=== PATIENT | male | born 1935 | race Caucasian/White ===

== ENCOUNTER → 2017-11-08 10:17 | Outpatient (CLI) | payer MEDICARE, SELFPAY ==
[2017-11-08 11:32] LABS: Absolute Lymphocyte Count 2.08 X10^3/ul (0.83-4.51); Absolute Neutrophil Count 3.3 X10^3/uL (2.0-7.7); Basophil# 0.04 X10^3/uL; Basophil% 0.6 % (0-1); Eosinophil# 0.26 X10^3/uL; Eosinophils% 4.1 % (0-5); Hematocrit 39.4 % (40-54); Hemoglobin 12.3 g/dl (13.0-16.5); Lymphocyte # 2.08 X10^3/ul (4.0); Lymphocyte % 32.6 % (19-41); Mean Corp Hgb Conc 31.2 g/gl (32-36); Mean Corpuscular Hgb 27.6 pg (27.0-32.0); Mean Corpuscular Volume 88.3 fL (80-94); Mean Platelet Vol. 9.3 fl (6.2-12.0); Monocyte# 0.72 X10^3/uL; Monocyte% 11.3 % (0-10); Neutrophil # 3.26 X10^3/uL (2.7-7.7); Neutrophil % 51.1 % (47-70); Platelet Count 199 K/mm3 (150-450); RBC Distribution Width CV 15.2 % (11.6-14.6); RBC Distribution Width SD 49.1 fl (35.1-43.9); Red Blood Count 4.46 M/mm3 (4.6-6.2); White Blood Count 6.4 K/mm3 (4.4-11.0)
[2017-11-08 11:33] LABS: POSITIVE COUNT NO; POSITIVE DIFFERENTIAL NO; POSITIVE MORPHOLOGY NO
[2017-11-08 12:07] LABS: AST(SGOT) 11 U/L (15-37); Alanine Aminotransfer ALT/SGPT 11 U/L (16-61); Albumin, Serum 3.5 g/dL (3.2-5.0); Alkaline Phosphatase 30 U/L (45-117); Anion Gap 6 (5-15); BUN 26 mg/dL (7-18); BUN/Creat Ratio 29.1 RATIO (10-20); Calcium,Total 8.7 mg/dL (8.5-10.1); Chloride 104 mmol/L (98-107); Cholesterol 139 mg/dL (200); Creatinine, Serum 0.89 mg/dL (0.70-1.30); EST Glomerular Filtration Rate 87 mL/min (>60); Est Glom Filt Rate - Afr Amer 105 mL/min (>60); Globulin 3.5 g/dL (2.2-4.2); Glucose 97 mg/dL (74-106); High Density Lipoprotein 60 mg/dL; Sodium Level 140 mmol/L (136-145); Thyroid Stim Hormone (TSH) 1.49 uIU/mL (0.358-3.74); Triglycerides 62 mg/dL; Very Low Density Lipoprotein 12 mg/dL (5-40); Vitamin D,25 Hydroxy 30.4 ng/mL (19.95-100.01)
== END | disposition home or self-care (01) ==
PROVIDERS: Family Provider Family Medicine Geriatric Medicine; PCP Family Medicine Geriatric Medicine; Visit Provider Family Medicine Geriatric Medicine
DX: E55.9 Vitamin D deficiency, unspecified (principal); E78.4 Other hyperlipidemia; R53.83 Other fatigue
CPT/HCPCS: 36415; 80053; 80061; 82306; 84443; 85025

== ENCOUNTER → 2018-06-13 11:20 | Outpatient (CLI) | payer MEDICARE, SELFPAY ==
[2018-06-13 11:57] LABS: Absolute Lymphocyte Count 2.16 X10^3/ul (0.83-4.51); Absolute Neutrophil Count 3.6 X10^3/uL (2.0-7.7); Basophil# 0.04 X10^3/uL; Basophil% 0.6 % (0-1); Eosinophil# 0.29 X10^3/uL; Eosinophils% 4.3 % (0-5); Hematocrit 39.7 % (40-54); Hemoglobin 12.2 g/dl (13.0-16.5); Lymphocyte # 2.16 X10^3/ul (4.0); Lymphocyte % 31.8 % (19-41); Mean Corp Hgb Conc 30.7 g/gl (32-36); Mean Corpuscular Hgb 26.3 pg (27.0-32.0); Mean Corpuscular Volume 85.7 fL (80-94); Mean Platelet Vol. 8.9 fl (6.2-12.0); Monocyte# 0.67 X10^3/uL; Monocyte% 9.9 % (0-10); Neutrophil # 3.63 X10^3/uL (2.7-7.7); Neutrophil % 53.3 % (47-70); Platelet Count 202 K/mm3 (150-450); RBC Distribution Width CV 15.8 % (11.6-14.6); RBC Distribution Width SD 49.9 fl (35.1-43.9); Red Blood Count 4.63 M/mm3 (4.6-6.2); White Blood Count 6.8 K/mm3 (4.4-11.0)
[2018-06-13 11:59] LABS: POSITIVE COUNT NO; POSITIVE DIFFERENTIAL NO; POSITIVE MORPHOLOGY NO
[2018-06-13 12:20] LABS: Vitamin D,25 Hydroxy 21.5 ng/mL (29.95-100.01)
[2018-06-13 12:28] LABS: ALB/GLOB Ratio 0.9 RATIO (0.9-2.4); AST(SGOT) 15 U/L (15-37); Alanine Aminotransfer ALT/SGPT 23 U/L (16-61); Albumin, Serum 3.5 g/dL (3.2-5.0); Alkaline Phosphatase 36 U/L (45-117); Anion Gap 9 (5-15); BUN 25 mg/dL (7-18); BUN/Creat Ratio 26.3 RATIO (10-20); Calcium,Total 9.2 mg/dL (8.5-10.1); Chloride 106 mmol/L (98-107); Cholesterol 156 mg/dL (200); Creatinine, Serum 0.95 mg/dL (0.70-1.30); EST Glomerular Filtration Rate 81 mL/min (>60); Est Glom Filt Rate - Afr Amer 98 mL/min (>60); Globulin 3.8 g/dL (2.2-4.2); Glucose 95 mg/dL (74-106); High Density Lipoprotein 57 mg/dL; Potassium 4.3 mmol/L (3.5-5.1); Protein, Total 7.3 g/dL (6.4-8.2); Sodium Level 142 mmol/L (136-145); Thyroid Stim Hormone (TSH) 2.53 uIU/mL (0.358-3.74); Triglycerides 85 mg/dL; Very Low Density Lipoprotein 17 mg/dL (5-40)
== END ==
PROVIDERS: Family Provider Family Medicine Geriatric Medicine; PCP Family Medicine Geriatric Medicine; Visit Provider Family Medicine Geriatric Medicine
DX: E55.9 Vitamin D deficiency, unspecified (principal); E78.4 Other hyperlipidemia; R53.83 Other fatigue
CPT/HCPCS: 36415; 80053; 80061; 82306; 84443; 85025

== ENCOUNTER → 2018-12-12 10:01 | Outpatient (CLI) | payer MEDICARE, SELFPAY ==
[2018-12-12 13:38] LABS: Absolute Lymphocyte Count 1.76 X10^3/ul (0.83-4.51); Absolute Neutrophil Count 3.3 X10^3/uL (2.0-7.7); Basophil# 0.02 X10^3/uL; Basophil% 0.3 % (0-1); Eosinophil# 0.23 X10^3/uL; Eosinophils% 3.8 % (0-5); Hematocrit 39.5 % (40-54); Hemoglobin 11.8 g/dl (13.0-16.5); Lymphocyte # 1.76 X10^3/ul (4.0); Lymphocyte % 29.2 % (19-41); Mean Corp Hgb Conc 29.9 g/gl (32-36); Mean Corpuscular Hgb 25.7 pg (27.0-32.0); Mean Corpuscular Volume 86.1 fL (80-94); Monocyte# 0.76 X10^3/uL; Monocyte% 12.6 % (0-10); Neutrophil # 3.25 X10^3/uL (2.7-7.7); Neutrophil % 54.1 % (47-70); Platelet Count 217 K/mm3 (150-450); RBC Distribution Width CV 16.2 % (11.6-14.6); RBC Distribution Width SD 51.3 fl (35.1-43.9); Red Blood Count 4.59 M/mm3 (4.6-6.2)
[2018-12-12 13:39] LABS: POSITIVE COUNT NO; POSITIVE DIFFERENTIAL NO; POSITIVE MORPHOLOGY NO
[2018-12-12 13:54] LABS: ALB/GLOB Ratio 0.9 RATIO (0.9-2.4); AST(SGOT) 16 U/L (15-37); Alanine Aminotransfer ALT/SGPT 17 U/L (16-61); Albumin, Serum 3.5 g/dL (3.2-5.0); Alkaline Phosphatase 35 U/L (45-117); Anion Gap 4 (5-15); BUN 21 mg/dL (7-18); BUN/Creat Ratio 24.1 RATIO (10-20); Calcium,Total 8.7 mg/dL (8.5-10.1); Chloride 108 mmol/L (98-107); Cholesterol 133 mg/dL (200); Creatinine, Serum 0.87 mg/dL (0.70-1.30); EST Glomerular Filtration Rate 89 mL/min (>60); Est Glom Filt Rate - Afr Amer 108 mL/min (>60); Globulin 3.7 g/dL (2.2-4.2); Glucose 64 mg/dL (74-106); High Density Lipoprotein 51 mg/dL; Protein, Total 7.2 g/dL (6.4-8.2); Sodium Level 141 mmol/L (136-145); Thyroid Stim Hormone (TSH) 2.11 uIU/mL (0.358-3.74); Triglycerides 88 mg/dL; Very Low Density Lipoprotein 18 mg/dL (5-40); Vitamin D,25 Hydroxy 18.4 ng/mL (29.95-100.01)
== END ==
PROVIDERS: Family Provider Family Medicine Geriatric Medicine; PCP Family Medicine Geriatric Medicine; Visit Provider Family Medicine Geriatric Medicine
DX: E55.9 Vitamin D deficiency, unspecified (principal); E78.49 Other hyperlipidemia; E78.5 Hyperlipidemia, unspecified; R53.83 Other fatigue
CPT/HCPCS: 36415; 80053; 80061; 82306; 84443; 85025

== ENCOUNTER → 2019-02-09 12:05 | Outpatient (CLI) | payer MEDICARE, SELFPAY ==
--- NOTE | 2019-02-09 12:12 | RAD_ITS ---
HISTORY: FOR ICD GENERATOR CHANGE EXAM: XR Chest 2 Views COMPARISON: None FINDINGS: LINES/DEVICES: Implanted cardiac device left chest. Intact leads extend in the right atrium and right ventricle. LUNGS: Radiographically clear. No consolidation, edema or effusion. No pneumothorax. MEDIASTINUM AND CARDIOVASCULAR STRUCTURES: Cardiac silhouette not enlarged. Central airways and mediastinal contour are unremarkable. Calcified mediastinal lymph nodes. BONES AND SOFT TISSUES: No acute findings. Degenerative changes thoracic spine. RAD/Chest PA and Lateral IMPRESSION: No radiographic evidence of acute cardiopulmonary disease. at 0318 Reported and signed by: Jovany Young MD Electronically Signed: Jovany Young, at 3:17 EDT Tel , Service support ,
[2019-02-09 12:30] LABS: Red Blood Cells-Urine 0 SEEN /hpf (0-5)
[2019-02-09 13:14] LABS: Color, Urine Yellow (Yellow); Glucose, Dipstick Normal (Normal); Ketone-Dipstick 5 mg/dl (Negative); Leukocyte Esterase-Dipstick 25 /ul (Negative); Nitrite-Dipstick Negative (Negative); Occult Blood-Urine Negative /ul (Negative); Protein-Dipstick Negative (Negative); Specific Gravity, Urine 1.015 (1.002-1.030); Urine Bilirubin Dipstick Negative (Negative); Urine Clarity Clear (Clear); Urine Urobilinogen Normal (Normal)
[2019-02-09 13:19] LABS: Bacteria RARE /hpf (None Seen); Mucous, Urine 2+ /hpf (<or=2+); Squamous Epithelial Cells - UA 0-5 SEEN /hpf (0-5); White Blood Cells 0-5 SEEN /hpf (0-5)
[2019-02-09 13:22] LABS: International Normalized Ratio 1.1
[2019-02-09 13:26] LABS: Hematocrit 38.4 % (40-54); Hemoglobin 11.6 g/dl (13.0-16.5); Mean Corp Hgb Conc 30.2 g/gl (32-36); Mean Corpuscular Hgb 25.2 pg (27.0-32.0); Mean Corpuscular Volume 83.3 fL (80-94); Mean Platelet Vol. 8.6 fl (6.2-12.0); Platelet Count 216 K/mm3 (150-450); RBC Distribution Width CV 16.3 % (11.6-14.6); RBC Distribution Width SD 49.3 fl (35.1-43.9); Red Blood Count 4.61 M/mm3 (4.6-6.2); White Blood Count 7.7 K/mm3 (4.4-11.0)
[2019-02-09 13:37] LABS: Anion Gap 6 (5-15); BUN 22 mg/dL (7-18); Calcium,Total 9.1 mg/dL (8.5-10.1); Chloride 107 mmol/L (98-107); Creatinine, Serum 0.88 mg/dL (0.70-1.30); EST Glomerular Filtration Rate 88 mL/min (>60); Est Glom Filt Rate - Afr Amer 106 mL/min (>60); Glucose 103 mg/dL (74-106); Scan Indicated on CBC? Y/N NO; Sodium Level 142 mmol/L (136-145)
== END ==
PROVIDERS: Family Provider Family Medicine Geriatric Medicine; PCP Family Medicine Geriatric Medicine; Referring Provider Internal Medicine Cardiovascular Disease; Visit Provider Internal Medicine Cardiovascular Disease
DX: I42.0 Dilated cardiomyopathy (principal); I47.2 Ventricular tachycardia; I42.2 Other hypertrophic cardiomyopathy; Z95.810 Presence of automatic (implantable) cardiac defibrillator
CPT/HCPCS: 36415; 71046; 80048; 81001; 85027; 85610

== ENCOUNTER 2019-02-12 13:14 | Day surgery (SDC) | payer MEDICARE, SELFPAY ==
--- NOTE | 2019-02-09 01:24 | HP_ITS ---
HPI History of Present Illness Surgical H&P: Yes Details: Miquel Andrews is a 83-year-old male who presents to the office today for a cardiovascular outpatient follow-up. He has history of nonischemic cardiomyopathy status post dual-chamber ICD implantation. He also has a history of hypertension and hyperlipidemia. He denies chest, arm, jaw, or neck discomfort. His exercise tolerance is stable. He denies symptoms of CHF, palpitations, lightheadedness, dizziness, near syncope, or syncopal episodes. He denies edema or claudication issues. He denies orthopnea, PND, myalgia, or unexplainable fatigue. Intake Intake Visit Reasons: FU Allergies No Known Allergies Allergy (Verified 02/09/19 13:03) Medications aspirin 81 mg tablet,delayed release 81 mg PO QDAY 02/18/18 [History Confirmed 02/18/18] carbidopa 25 mg-levodopa 100 mg tablet 1 tab PO TID 02/18/18 [History Confirmed 02/18/18] ergocalciferol (vitamin D2) 50,000 unit capsule 50,000 unit PO QMONTH cap 02/18/18 [History Confirmed 02/18/18] finasteride 5 mg tablet 5 mg PO QDAY 02/18/18 [History Confirmed 02/18/18] ropinirole 1 mg tablet See Rx Instructions PO TID 02/18/18 [History Confirmed 02/18/18] sertraline 100 mg tablet 100 mg PO QDAY 02/18/18 [History Confirmed 02/18/18] simvastatin 40 mg tablet 40 mg PO QPM 02/18/18 [History Confirmed 02/18/18] carvedilol 6.25 mg tablet 6.25 mg PO BID #180 tab 06/12/18 [Rx] PFSH Medical History Dilated cardiomyopathy (Chronic) Hypertrophic cardiomyopathy (Chronic) Ventricular tachycardia (Chronic) Hypertension (Chronic) Syncope and collapse (Acute) Surgical History Hx of hernia repair (Resolved) Hx of appendectomy (Resolved) Implantable cardioverter-defibrillator (ICD) in situ (Resolved) Family History Brother CAD (coronary artery disease) Social History Smoking Status: Never smoker ROS Const Const: Negative for fatigue, weakness, body ache, fever(s) or chills ENT ENT: Negative for dizziness Cardio Chest Pain: No Palpitations: No Edema: None Muscle aches with walking: None Resp Respiratory: Negative for SOB with activity, SOB at rest, SOB orthopnea\SOB lying down or paroxysmal nocturnal dyspnea GI GI: Negative nausea, vomiting blood/hematemesis, bright, red blood in stools or black,tarry stools : Negative for hematuria or frequent nighttime urination/ nocturia Musc Musc: Negative for muscle aches/ myalgia Skin Skin: Negative non-healing lesions or rash Neuro Neuro: Negative for dizziness, lightheadedness, near syncope, syncope, orthostatic symptoms or weakness Endo Endo: Negative for fatigue Allergy Allergy/Immunology: Negative for rash Cardiology Exam Const Appearance: cooperative, healthy appearing, comfortable and no acute distress Nutritional Appearance: well nourished and overweight Orientation: alert, awake and oriented x3 Head Head: normal to inspection Ears: hearing grossly normal bilaterally Nose: external nose normal Face and Sinus: face symmetric Mouth: oral mucosae normal Eyes General: appearance normal, both eyes and all related structures Eyelids: eyelids normal EOM: EOM intact bilaterally Neck Neck: normal visual inspection and no JVD Carotids: normal carotid upstroke Chest Chest inspection: normal inspection of the chest, symmetric chest movement and normal respiratory effort; negative cough Auscultation: Bilateral: Clear to Auscultation Cardio Rate: regular rate Rhythm: regular rhythm Heart sounds: S1 normal and S2 normal; negative rub, gallop or murmur GI GI: normal to inspection Neuro General: alert, awake, oriented x3, CN's II-XI intact bilaterally and other (upper extremity tremors) Skin Skin: no rashes or lesions noted Extremities Pulses: Normal: Right Posterior Tibial Pulse, Left Posterior Tibial Pulse, Right Radial Pulse, Left Radial Pulse Lower Extremity Edema: None: Bilateral Psych Psychological: normal affect Assessment & Plan 1. Implantable cardioverter-defibrillator (ICD) in situ Z95.810 Dual chamber ICD implant 01/31/12 Plan Patient was noted to have a faulty code with his generator. His EKG today shows normal sinus rhythm with a left bundle branch block. He will undergo generator change with Dr. Denton on 02/12/2019. 2. Dilated cardiomyopathy I42.0 Plan His most recent echocardiogram from September 2012 showed ejection fraction of 50%. His heart catheterization in 2011 showed angiographically normal coronary arteries. He denies any shortness of breath or lower extremity edema. His activity level has remained stable. At this time, he will continue current medications and we will continue to monitor. 3. Essential hypertension I10 Plan Patient's blood pressure is well-controlled. We will continue to monitor. We will not make any medication regimen changes. 4. Hyperlipidemia, unspecified hyperlipidemia type E78.5 Plan Lipid panel from November 2018 showed cholesterol: 133, HDL: 51, LDL: 64, and triglycerides: 88. He will continue current statin medication. Plan Detail Additional Comments Thank you for allowing us to participate in the patient's plan of care, if you have any questions please do not hesitate to call. This note was generated using a voice recognition system and there may be incorrect words, spelling, or punctuation that were not noted upon reviewing the office note prior to saving. Patient is scheduled to undergo a generator change with Dr. Denton on 02/12/2019. Coding Level of Care Code Off vis,est,level 3 Diagnoses Implantable cardioverter-defibrillator (ICD) in situ Z95.810 Dilated cardiomyopathy I42.0 Essential hypertension I10 ??Hypertension type: essential hypertension Hyperlipidemia, unspecified hyperlipidemia type E78.5 ??Hyperlipidemia type: unspecified Coding Level of Care Code Off vis,est,level 3 Diagnoses Implantable cardioverter-defibrillator (ICD) in situ Z95.810 Dilated cardiomyopathy I42.0 Essential hypertension I10 ??Hypertension type: essential hypertension Hyperlipidemia, unspecified hyperlipidemia type E78.5 ??Hyperlipidemia type: unspecified Supplemental Info Supplemental Information Echocardiogram from 10/11/2012: Interpretation summary The study was tightly difficult. Mild segmental systolic dysfunction (see wall motion) C. The estimated ejection fraction is 50%. Paradoxical septal wall motion consistent with a electronic ventricular pacemaker. Mild focal aortic valve thickening. Mild focal aortic valve calcification. ICD or pacer leads identified within the right atrium. ICD or pacer leads identified within the right ventricle. Heart catheterization from 01/30/2012: Conclusion 1. Angiographically normal left main coronary artery. 2. Left anterior descending artery which is angiographically normal. 3. Left posterior proximal artery, which essentially normal. 4. Mild to moderately globally reduced left atrial systolic function. 5. Based on the above intra-graphic findings, I would recommend that the patient undergo EP study for further evaluation of his syncopal spell. He does have a left bundle branch block, as well as first-degree AV block. Labs LDL Cholesterol 64 mg/dL (0-130) 03/22/19 HDL Cholesterol 51 mg/dL (40-) 12/12/18 Triglycerides 88 mg/dL (-199) 12/12/18 VLDL Cholesterol 18 mg/dL (5-40) 12/12/18 Diagnostics Electrocardiogram 02/09/19 Chest X-Ray 02/09/19 02/09/19 1324 <Electronically signed by Colton HOSKINS> Date Colton SAINZC
[2019-02-09 13:02] VITALS: BMI 27.1
--- NOTE | 2019-02-12 14:55 | OP.PCM_ITS ---
Report of Operation Description of Surgical Findings:: Preoperative diagnosis is device at end of life for normal battery depletion. Postoperative diagnosis same as above. After informed consent and IV antibiotics the patient was brought to the [facility] and the skin over the device was prepped and draped in the usual sterile manner. Intermittent boluses of Versed, and fentanyl were used for sedation and analgesia as well as 1% subcutaneous lidocaine. An incision was made over the pre-existing device. Using blunt and Bovie dissection the pocket was opened and the device was removed. Careful attention was paid not to injure the pre-existing leads. The leads were removed from the device header and they were interrogated. There is normal lead function. Hemostasis was obtained. The pocket was flushed with antibiotic solution. The sponge and needle count were correct. The new device was brought to the field. The leads were placed in the appropriate position in the header and secured by the set screw. The leads and the device were then placed in the pocket. The pocket was closed with a deep layer of running 2-0 Vicryl, a superficial layer of running 4-0 Vicryl, skin with Steri-Strips which were covered with a rolled 4 x 4 and Tegaderm. Patient left the room with the device programmed to proper parameters and there were no complications. The device is a dual chamber generator. All lead parameters were tested and found to be functionally normal. Lead and device serial and model numbers are available in the chart documents provided by the device company technical account representative procedure summary.
== END 2019-02-12 16:43 | disposition home or self-care (01) ==
LOC: CLSP 13:14
PROVIDERS: Family Provider Family Medicine Geriatric Medicine; PCP Family Medicine Geriatric Medicine; Referring Provider Internal Medicine Cardiovascular Disease; Visit Provider Internal Medicine Cardiovascular Disease
DX: Z45.010 Encounter for checking and testing of cardiac pacemaker pulse generator [battery] (principal); I42.0 Dilated cardiomyopathy; I10 Essential (primary) hypertension; I44.7 Left bundle-branch block, unspecified; E78.5 Hyperlipidemia, unspecified; Z95.810 Presence of automatic (implantable) cardiac defibrillator; Z79.82 Long term (current) use of aspirin; Z79.899 Other long term (current) drug therapy
CPT/HCPCS: 33263; 93641; 99152; 99153; J7040; J7050

== ENCOUNTER → 2019-06-15 14:19 | Outpatient (CLI) | payer MEDICARE, SELFPAY ==
[2019-06-15 16:55] LABS: Absolute Lymphocyte Count 2.21 X10^3/uL (0.83-4.51); Absolute Neutrophil Count 3.6 X10^3/uL (2.0-7.7); Basophil# 0.02 X10^3/uL; Basophil% 0.3 % (0-1); Eosinophil# 0.23 X10^3/uL; Eosinophils% 3.4 % (0-5); Hemoglobin 10.9 g/dL (13.0-16.5); Lymphocyte # 2.21 X10^3/ul (4.0); Mean Corp Hgb Conc 30.3 g/dL (32-36); Mean Corpuscular Hgb 25.5 pg (27.0-32.0); Mean Corpuscular Volume 84.3 fL (80-94); Monocyte# 0.63 X10^3/uL; Monocyte% 9.4 % (0-10); NRBC Flagged by Analyzer 0 % (0-5); Neutrophil # 3.59 X10^3/uL (2.7-7.7); Neutrophil % 53.8 % (47-70); Platelet Count 194 K/mm3 (150-450); RBC Distribution Width CV 16.7 % (11.6-14.6); RBC Distribution Width SD 51.5 fl (35.1-43.9); Red Blood Count 4.27 M/mm3 (4.6-6.2); White Blood Count 6.7 K/mm3 (4.4-11.0)
[2019-06-15 17:19] LABS: Vitamin D,25 Hydroxy 19.2 ng/mL (29.95-100.01)
[2019-06-15 17:20] LABS: ALB/GLOB Ratio 0.9 RATIO (0.9-2.4); AST(SGOT) 12 U/L (15-37); Alanine Aminotransfer ALT/SGPT 10 U/L (16-61); Albumin, Serum 3.2 g/dL (3.2-5.0); Alkaline Phosphatase 32 U/L (45-117); Anion Gap 8 (5-15); BUN 21 mg/dL (7-18); BUN/Creat Ratio 25.7 RATIO (10-20); Calcium,Total 8.7 mg/dL (8.5-10.1); Chloride 109 mmol/L (98-107); Cholesterol 117 mg/dL (200); Creatinine, Serum 0.82 mg/dL (0.70-1.30); EST Glomerular Filtration Rate 96 mL/min (>60); Est Glom Filt Rate - Afr Amer 116 mL/min (>60); Globulin 3.7 g/dL (2.2-4.2); Glucose 115 mg/dL (74-106); High Density Lipoprotein 53 mg/dL; Potassium 3.8 mmol/L (3.5-5.1); Protein, Total 6.9 g/dL (6.4-8.2); Sodium Level 142 mmol/L (136-145); Thyroid Stim Hormone (TSH) 1.25 uIU/mL (0.358-3.74); Triglycerides 66 mg/dL; Very Low Density Lipoprotein 13 mg/dL (5-40)
== END ==
PROVIDERS: Family Provider Family Medicine Geriatric Medicine; PCP Family Medicine Geriatric Medicine; Visit Provider Family Medicine Geriatric Medicine
DX: E55.9 Vitamin D deficiency, unspecified (principal); E78.5 Hyperlipidemia, unspecified; R53.83 Other fatigue
CPT/HCPCS: 36415; 80053; 80061; 82306; 84443; 85025

== ENCOUNTER → 2020-09-09 08:46 | Outpatient (CLI) | payer MEDICARE, SELFPAY ==
[2020-05-05 13:19] VITALS: BMI 25.8
[2020-09-09 10:42] LABS: Absolute Lymphocyte Count 2.34 X10^3/uL (0.83-4.51); Basophil# 0.05 X10^3/uL; Basophil% 0.7 % (0-1); Eosinophil# 0.17 X10^3/uL; Eosinophils% 2.3 % (0-5); Hematocrit 36.9 % (40-54); Hemoglobin 10.7 g/dL (13.0-16.5); Lymphocyte # 2.34 X10^3/ul (4.0); Lymphocyte % 31.9 % (19-41); Mean Corpuscular Hgb 24.2 pg (27.0-32.0); Mean Corpuscular Volume 83.5 fL (80-94); Mean Platelet Vol. 9.7 fl (6.2-12.0); Monocyte# 0.78 X10^3/uL; Monocyte% 10.6 % (0-10); NRBC Flagged by Analyzer 0 % (0-5); Neutrophil # 3.98 X10^3/uL (2.7-7.7); Neutrophil % 54.2 % (47-70); Platelet Count 263 K/mm3 (150-450); RBC Distribution Width CV 16.5 % (11.6-14.6); RBC Distribution Width SD 50.4 fl (35.1-43.9); Red Blood Count 4.42 M/mm3 (4.6-6.2); White Blood Count 7.3 K/mm3 (4.4-11.0)
[2020-09-09 11:14] LABS: ALB/GLOB Ratio 0.9 RATIO (0.9-2.4); AST(SGOT) 13 U/L (15-37); Alanine Aminotransfer ALT/SGPT 16 U/L (16-61); Albumin, Serum 3.5 g/dL (3.2-5.0); Alkaline Phosphatase 40 U/L (45-117); Anion Gap 5 (5-15); BUN 23 mg/dL (7-18); Calcium,Total 8.9 mg/dL (8.5-10.1); Chloride 110 mmol/L (98-107); Creatinine, Serum 0.96 mg/dL (0.70-1.30); EST Glomerular Filtration Rate 80 mL/min (>60); Est Glom Filt Rate - Afr Amer 96 mL/min (>60); Glucose 87 mg/dL (74-106); Protein, Total 7.5 g/dL (6.4-8.2); Sodium Level 144 mmol/L (136-145); Thyroid Stim Hormone (TSH) 1.29 uIU/mL (0.358-3.74)
== END ==
PROVIDERS: PCP Family Medicine Geriatric Medicine; Referring Provider Family Medicine Geriatric Medicine; Visit Provider Family Medicine Geriatric Medicine
DX: E55.9 Vitamin D deficiency, unspecified (principal); E78.5 Hyperlipidemia, unspecified; R53.83 Other fatigue
CPT/HCPCS: 36415; 80053; 82306; 84443; 85025

== ENCOUNTER 2020-09-14 18:33 | Emergency (ER) | payer MEDICARE, SELFPAY ==
[2020-05-05 13:19] VITALS: BMI 25.8
[2020-09-14 18:34] VITALS: BP 108/67; PULSE 72; RESP 20; TEMP 36.2; O2SAT 96; BMI 25.1
[2020-09-14 18:49] VITALS: BP 128/65; PULSE 78; RESP 15; O2SAT 96
--- NOTE | 2020-09-14 19:26 | ED.VISSUMM ---
- ER Visit Summary Date of Service: 09/14/20 Chief Complaint: Syncope History of Present Illness: The patient is a 84 M who presents with a syncopal episode that occurred today. Patient states he was standing when he felt lightheaded and fell. Patient states he did pass out. Patient states he was out for approximately 2 minutes. Patient states he has not eaten anything today. Patient denies any chest pain or palpitations. Patient denies any visual changes or tunnel vision. Patient denies any shortness of breath or cough. Patient denies any nausea or vomiting. Physical Examination: Vital signs are stable. Patient is afebrile. Patient is in no acute distress. Oral mucosa is pink and moist. Neck is supple. Trachea is midline. There is no JVD noted. Heart was regular rate and rhythm. Lungs are clear and equal bilaterally. Abdomen is soft. Bowel sounds are normal. There is no tenderness. There is no rebound or guarding noted. Skin is warm dry. Cranial nerves II through XII are intact. There are no focal motor or sensory deficits noted. Extremities are intact. There is no calf tenderness or edema. Test Results: EKG showed normal sinus rhythm with a rate of 70. There are occasional PVCs noted. There is a left bundle branch block pattern noted. This was unchanged compared to previous EKG dated 10/19/2012. CBC and comprehensive metabolic profile were obtained and were essentially within normal limits. Troponin was normal. Portable 1 view chest x-ray was obtained. On my interpretation, lung breaux are clear. There is normal cardiac silhouette. Bony thorax is normal. There is no acute process noted. Radiologist also interpreted the x-ray and agrees. Emergency Department Course and Treatment: Patient is resting comfortably on reevaluation. Patient wants to go home. Patient is low risk according to [place] syncope rule. Patient was instructed to follow-up with his primary care physician in 3 to 5 days for further evaluation. Patient understood and was agreeable with the plan. All questions were answered. Disposition: Discharge home Impression: Syncope This note was generated with [employer] dictation software. It may contain incorrect words, spelling, and punctuation that were not noted in review of the chart prior to signing ED Disposition - Plan for ED Patient: Disposition: Home or Assisted Living Diagnosis: Syncope Instructions: ED Fainting, Uncertain Cause Referrals: Collin Huang Chi, MD [Primary Care Provider] - 3-5 Days
[2020-09-14 19:35] LABS: Absolute Lymphocyte Count 1.84 X10^3/uL (0.83-4.51); Absolute Neutrophil Count 4.3 X10^3/uL (2.0-7.7); Basophil# 0.04 X10^3/uL; Basophil% 0.6 % (0-1); Eosinophil# 0.16 X10^3/uL; Eosinophils% 2.3 % (0-5); Hematocrit 36.4 % (40-54); Hemoglobin 10.3 g/dL (13.0-16.5); Lymphocyte # 1.84 X10^3/ul (4.0); Lymphocyte % 26.2 % (19-41); Mean Corp Hgb Conc 28.3 g/dL (32-36); Mean Corpuscular Hgb 23.7 pg (27.0-32.0); Mean Corpuscular Volume 83.7 fL (80-94); Mean Platelet Vol. 9.4 fl (6.2-12.0); Monocyte# 0.69 X10^3/uL; Monocyte% 9.8 % (0-10); NRBC Flagged by Analyzer 0 % (0-5); Neutrophil # 4.26 X10^3/uL (2.7-7.7); Neutrophil % 60.8 % (47-70); Platelet Count 243 K/mm3 (150-450); RBC Distribution Width CV 16.2 % (11.6-14.6); Red Blood Count 4.35 M/mm3 (4.6-6.2)
--- NOTE | 2020-09-14 19:39 | RAD_ITS ---
STUDY: X-RAY CHEST REASON FOR EXAM: Male, 84 years old. SYNCOPE TECHNIQUE: Single AP portable view of the chest. COMPARISON: February 09, 2019. FINDINGS: Pacemaker device on the left is stable. The lungs are clear and expanded. There is no demonstrated pleural abnormality. Normal size heart. There are calcified mediastinal lymph nodes. Normal visualized pulmonary arteries. Normal visualized aortic arch and descending thoracic aorta. There is demineralization of the osseous structures. Degenerative change of the spine. Normal visualized ribs, clavicles, and shoulders. There is no demonstrated abnormality of the visualized soft tissue structures of the upper abdomen. RAD/Chest 1 View (Portable) IMPRESSION: Degenerative changes, as described above. No demonstrated acute cardiopulmonary process. Electronically Signed: Shamir Regan MD at 21:15 EST , Service support ,
[2020-09-14 19:45] LABS: ALB/GLOB Ratio 0.9 RATIO (0.9-2.4); AST(SGOT) 15 U/L (15-37); Alanine Aminotransfer ALT/SGPT 8 U/L (16-61); Albumin, Serum 3.5 g/dL (3.2-5.0); Alkaline Phosphatase 36 U/L (45-117); Anion Gap 3 (5-15); BUN 17 mg/dL (7-18); Calcium,Total 8.9 mg/dL (8.5-10.1); Chloride 108 mmol/L (98-107); EST Glomerular Filtration Rate 76 mL/min (>60); Est Glom Filt Rate - Afr Amer 91 mL/min (>60); Estimated Creatinine Clearance 58.57 ml/min; Globulin 3.9 g/dL (2.2-4.2); Glucose 93 mg/dL (74-106); Potassium 3.9 mmol/L (3.5-5.1); Protein, Total 7.4 g/dL (6.4-8.2); Sodium Level 142 mmol/L (136-145)
[2020-09-14 20:39] VITALS: BP 135/75; PULSE 74; RESP 17; O2SAT 98
== END 2020-09-14 21:41 | disposition home or self-care (01) ==
PROVIDERS: Emergency Provider Emergency Medicine; PCP Family Medicine Geriatric Medicine
DX: R55 Syncope and collapse (principal); Z79.82 Long term (current) use of aspirin
CPT/HCPCS: 71045; 80053; 84484; 85025; 93005; 99284

== ENCOUNTER 2021-08-25 18:18 | Emergency (ER) | payer MEDICARE, SELFPAY ==
--- NOTE | 2021-08-25 18:20 | ED.RN ---
CALL FOR RIDE HOME TO SON SUSAN GARCIA [phone]
[2021-08-25 18:22] VITALS: BP 121/81; PULSE 69; RESP 16; TEMP 36.6; O2SAT 99; BMI 23.1
--- NOTE | 2021-08-25 18:59 | ED.RN ---
PT STATES HE DOES NOT WANT TO BE SEEN. SISTER PICKS HIM UP FROM THE ED AND TOOK HIM HOME.
== END 2021-08-25 19:00 | disposition left against medical advice (07) ==
PROVIDERS: PCP Family Medicine Geriatric Medicine
DX: Z53.21 Procedure and treatment not carried out due to patient leaving prior to being seen by health care provider (principal)

== ENCOUNTER → 2021-09-11 12:03 | Outpatient (CLI) | payer MEDICARE, SELFPAY ==
[2021-09-11 12:46] LABS: Absolute Lymphocyte Count 2.37 X10^3/uL (0.83-4.51); Absolute Neutrophil Count 3.5 X10^3/uL (2.0-7.7); Basophil# 0.05 X10^3/uL; Basophil% 0.7 % (0-1); Eosinophil# 0.15 X10^3/uL; Eosinophils% 2.2 % (0-5); Hematocrit 31.2 % (40-54); Lymphocyte # 2.37 X10^3/ul (0.83-4.51); Lymphocyte % 34.9 % (19-41); Mean Corp Hgb Conc 28.8 g/dL (32-36); Mean Corpuscular Hgb 22.8 pg (27.0-32.0); Mean Corpuscular Volume 79.2 fL (80-94); Monocyte# 0.67 X10^3/uL; Monocyte% 9.9 % (0-10); NRBC Flagged by Analyzer 0 % (0-5); Neutrophil # 3.54 X10^3/uL (2.7-7.7); Platelet Count 264 K/mm3 (150-450); RBC Distribution Width CV 17.8 % (11.6-14.6); RBC Distribution Width SD 51.6 fl (35.1-43.9); Red Blood Count 3.94 M/mm3 (4.6-6.2); White Blood Count 6.8 K/mm3 (4.4-11.0)
[2021-09-11 12:54] LABS: Vitamin D,25 Hydroxy 39.2 ng/mL
[2021-09-11 13:04] LABS: ALB/GLOB Ratio 0.7 RATIO (0.9-2.4); AST(SGOT) 13 U/L (15-37); Alanine Aminotransfer ALT/SGPT 9 U/L (16-61); Alkaline Phosphatase 35 U/L (45-117); Anion Gap 7 (5-15); BUN 27 mg/dL (7-18); Calcium,Total 9.2 mg/dL (8.5-10.1); Chloride 103 mmol/L (98-107); Cholesterol 117 mg/dL (200); Creatinine, Serum 0.84 mg/dL (0.70-1.30); EST Glomerular Filtration Rate 92 mL/min (>60); Est Glom Filt Rate - Afr Amer 111 mL/min (>60); Globulin 4.2 g/dL (2.2-4.2); Glucose 92 mg/dL (74-106); High Density Lipoprotein 58 mg/dL; Potassium 4.4 mmol/L (3.5-5.1); Protein, Total 7.2 g/dL (6.4-8.2); Sodium Level 139 mmol/L (136-145); Thyroid Stim Hormone (TSH) 1.17 uIU/mL (0.358-3.74); Triglycerides 63 mg/dL; Very Low Density Lipoprotein 13 mg/dL (5-40)
== END ==
PROVIDERS: PCP Family Medicine Geriatric Medicine; Visit Provider Family Medicine Geriatric Medicine
DX: E55.9 Vitamin D deficiency, unspecified (principal); E78.5 Hyperlipidemia, unspecified; R53.83 Other fatigue
CPT/HCPCS: 36415; 80053; 80061; 82306; 84443; 85025

== ENCOUNTER → 2021-09-13 15:49 | Outpatient (CLI) | payer MEDICARE, SELFPAY ==
[2021-09-13 16:53] LABS: Absolute Lymphocyte Count 2.23 X10^3/uL (0.83-4.51); Absolute Neutrophil Count 3.5 X10^3/uL (2.0-7.7); Basophil# 0.03 X10^3/uL; Basophil% 0.5 % (0-1); Eosinophil# 0.16 X10^3/uL; Eosinophils% 2.4 % (0-5); Hematocrit 31.9 % (40-54); Hemoglobin 9.5 g/dL (13.0-16.5); Lymphocyte # 2.23 X10^3/ul (0.83-4.51); Lymphocyte % 33.7 % (19-41); Mean Corp Hgb Conc 29.8 g/dL (32-36); Mean Corpuscular Hgb 23.6 pg (27.0-32.0); Mean Corpuscular Volume 79.2 fL (80-94); Monocyte# 0.67 X10^3/uL; Monocyte% 10.1 % (0-10); NRBC Flagged by Analyzer 0 % (0-5); Platelet Count 260 K/mm3 (150-450); RBC Distribution Width CV 18.1 % (11.6-14.6); RBC Distribution Width SD 51.9 fl (35.1-43.9); RET-HE 24.1 pg (30-35); Red Blood Count 4.03 M/mm3 (4.6-6.2); Reticulocyte Count 1.04 % (0.5-1.5); White Blood Count 6.6 K/mm3 (4.4-11.0)
[2021-09-13 17:01] LABS: Vitamin B12 123 pg/mL (211-911)
[2021-09-13 17:07] LABS: Ferritin 5 ng/mL (26-388); Iron 19 ug/dL (65-175); Iron Binding Capacity,Total 372 ug/dL (250-450); PERCENT IRON SATURATION 5.1 % (15.0-55.0)
== END ==
PROVIDERS: PCP Family Medicine Geriatric Medicine; Visit Provider Family Medicine Geriatric Medicine
DX: D64.9 Anemia, unspecified (principal)
CPT/HCPCS: 36415; 82607; 82728; 82746; 83540; 83550; 85025; 85045

== ENCOUNTER 2022-09-29 19:18 | Emergency (ER) | payer MEDICARE, SELFPAY ==
[2022-09-29 19:20] VITALS: BP 126/64; PULSE 63; RESP 16; TEMP 36.3; O2SAT 99; BMI 22.8
[2022-09-29 19:27] VITALS: BP 126/64; PULSE 63; RESP 16; TEMP 36.3; O2SAT 99
--- NOTE | 2022-09-29 19:41 | CT_ITS ---
EXAM: CT HEAD WITHOUT INTRAVENOUS CONTRAST CLINICAL INDICATION: head trauma TECHNIQUE: Multiple axial images were obtained of the head without intravenous contrast. This CT exam was performed using one or more of the following dose reduction techniques: automated exposure control, adjustment of the mA and/or kV according to patient size, and/or use of iterative reconstruction technique. This report was created using [id number] report generation technology. COMPARISON: None. FINDINGS: BRAIN AND EXTRA-AXIAL SPACES: There is enlargement of ventricular system and cortical sulci. There is mild hypoattenuation in the periventricular white matter. No intra- or extra-axial hemorrhage. No evidence of acute infarct. No intracranial mass or mass effect. There is preservation of the regan/white matter interface. Posterior fossa structures are unremarkable. Basal cisterns are patent. BONES/JOINTS: Unremarkable. No discrete lytic or blastic abnormalities. SINUSES: Unremarkable as visualized. Clear. MASTOID AIR CELLS: Unremarkable. Clear. ORBITS: Visualized globes, extraocular muscles, optic nerves and retrobulbar fat appear unremarkable. CT/Brain/Head without Contrast IMPRESSION: 1. No acute intracranial abnormality. 2. Underlying senescent change with small vessel ischemia. Electronically Signed: Km Soria MD at 21:24 EST ,
--- NOTE | 2022-09-29 19:42 | EKG12_ITS ---
Test Reason : FALL Blood Pressure : / mmHG Vent. Rate : 062 BPM Atrial Rate : 062 BPM P-R Int : 206 ms QRS Dur : 182 ms QT Int : 474 ms P-R-T Axes : 044 -53 153 degrees QTc Int : 481 ms Normal sinus rhythm Left axis deviation Left bundle branch block Abnormal ECG Confirmed by TYLOR CHINCHILLA, MARILYN ([id number]), avid editor SHAKA MARTÍNEZ ([id number]) on 10/01/2022 1:48:28 PM Referred By: Confirmed By:MARILYN SNIDER MD
--- NOTE | 2022-09-29 19:43 | EX.ED.GENINJ ---
HPI History of Present Illness Chief Complaint: Laceration Detail of Chief Complaint: Fell at a store hitting his face and forehead. Informant: patient Onset/Context/Timing Onset: Today Mechanism/Context: Blunt Injury and Fall Current Severity: Mild Maximum Severity: Mild Associated Symptoms Associated Symptoms: Positive for Loss of consciousness; Negative for Parasthesias, Weakness, Loss of function, Inability to ambulate or Amnesia Narrative Narrative: 86-year-old male who is here by himself. Has a history of V. tach with cardiomyopathy and a defibrillator. States it was at a local store he was going to the checkout line and just remembers falling going down. He does not remember if he tripped. He said he had no prefall symptoms and was feeling fine. He denies being lightheaded or dizzy. He had no chest pain or shortness of breath. No abdominal pain. He denies any nausea, vomiting, diarrhea or fever. States he has been feeling fine. Eating and drinking well. He thinks he may have had a brief loss of consciousness when he fell. He denies any injuries other than a superficial forehead laceration and an abrasion laceration to his nose. He denies any pain to his arms, legs, chest abdomen or back. Prior similar symptoms: No Recent Illness/Hospitalization: No [facility] [place] [facility] Medical History (Updated 09/29/22 @ 21:[address] Spenser Devries MD) Anxiety Benign prostate hyperplasia Essential (primary) hypertension Hyperlipidemia Hypertrophic cardiomyopathy Non-ischemic cardiomyopathy Syncope and collapse Tremor Ventricular tachycardia Home Medications aspirin 81 mg tablet,delayed release (Adult Low Dose Aspirin) 81 mg PO QDAY 02/18/18 [History Last Taken 02/12/19] finasteride 5 mg tablet 5 mg PO QDAY 02/18/18 [History Last Taken 02/12/19] ropinirole 1 mg tablet 1 mg PO TID 02/18/18 [History Last Taken 02/12/19] carbidopa 25 mg-levodopa 250 mg disintegrating tablet 1 ea PO TID 02/12/19 [History Last Taken Unknown] carbidopa ER 50 mg-levodopa 200 mg tablet,extended release 1 ea PO DAILY 02/12/19 [History Last Taken Unknown] sertraline 100 mg tablet 100 mg PO DAILY 02/12/19 [History Last Taken Unknown] simvastatin 40 mg tablet 40 mg PO QHS 02/12/19 [History Last Taken Unknown] Cholecalciferol (Vitamin D3) [Vitamin D3] 5,000 unit PO MO 09/14/20 [History Last Taken Unknown] carvedilol 6.25 mg tablet 6.25 mg PO BID #180 tabs 07/04/22 [Rx Last Taken Unknown] Allergy/AdvReac Type Severity Reaction Status Date / Time No Known Allergies Allergy Verified 09/14/20 18:33 Family History Brother CAD (coronary artery disease) Surgical History (Updated 09/29/22 @ 21:[address] Spenser Devries MD) History of implantable cardiac defibrillator (ICD) (02/19/19) Hx of appendectomy Hx of hernia repair Social History Smoking Status: Never smoker ROS ROS ED ROS Narrative Denies recent illness. Review of Systems ROS Unobtainable: Denies due to encephalopathy Constitutional Constitutional ED: Denies chills or fever(s) Eyes Eyes: Denies blurry vision ENT ENT ED: Denies ear pain Cardiovascular Cardiovascular: Denies chest pain Respiratory/Chest Respiratory/Chest: Denies cough Gastrointestinal Gastrointestinal: Denies abdominal pain Genitourinary Genitourinary ED: Denies dysuria Musculoskeletal Musculoskeletal: Denies arthralgias Integumentary Denies abscess Neurologic Neurologic: Denies headache(s) Endocrine Endocrinology: Denies cold intolerance Hematologic/Lymphatic Hematologic/Lymphatic: Denies easy bleeding Allergic/Immunologic Allergic/Immunologic ED: Denies mouth swelling or tongue swelling EXAM Physical Exam Narrative Exam Narrative: 86-year-old male vital signs stable afebrile. Pulse ox 90% on room air no hypoxia. H EENT exam is superficial V-shaped laceration above his right eyebrow. It does not gape. There is no active bleeding and does not need to be sewn. He also has superficial lacerations to the bridge of his nose mild tenderness and swelling. No gross bony deformity. They also did not need to be repaired. His scalp is nontender. There is no signs of trauma to his scalp. Dentition intact. He has dentures in. Pupils round reactive light. C-spine nontender. Trachea midline. Back nontender kyphotic. No bruising. Lungs clear to auscultation. Heart rate in the 60s no murmur. Chest wall nontender. No crepitus or subcu air. Abdomen soft, nontender, nondistended, no peritoneal signs. Pelvic girdle intact. Moving all 4 extremities. 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 Normal dorsi plantar flexion. Normal range of motion. No joint tenderness or deformity. Neurologically is awake and alert. Answering questions and following commands. Const Vital Signs: 09/29/22 19:20 09/29/22 19:27 09/29/22 21:14 Temperature 97.3 F L 97.3 F L Temperature Source Oral Oral Pulse Rate 63 63 Pulse Rate [Lying] 58 L Pulse Rate [Sitting (for 1 minute prior to obtaining)] 60 Pulse Rate [Standing (for 1 minute prior to obtaining)] 64 Respiratory Rate 16 16 Blood Pressure 126/64 H 126/64 H Blood Pressure [Lying] 146/79 H Blood Pressure [Sitting (for 1 minute prior to obtaining)] 156/77 H Blood Pressure [Standing (for 1 minute prior to obtaining)] 133/76 H Blood Pressure Mean 84 84 Blood Pressure Mean [Lying] 101 Blood Pressure Mean [Sitting (for 1 minute prior to obtaining)] 103 Blood Pressure Mean [Standing (for 1 minute prior to obtaining)] 95 Pulse Ox 99 99 Oxygen Delivery Method Room Air Nasal Cannula Positive well nourished and well developed; Negative for obese, cachectic, contractures or unkempt General Appearance ED: well developed and NAD; Negative for unkempt, cachectic or contractures Nutritional Appearance: Negative for cachectic or obese HEENT HEENT Narrative: Right forehead laceration no repair needed. Nasal laceration and bridge tenderness with mild swelling. Most likely contusion possible nasal fracture. trauma and tenderness; Negative for atraumatic Nose: Negative for septum abnormal Eyes PERRL and EOMs intact bilaterally General Eye ED: Negative for other Neck full ROM General: Negative for tenderness Chest Wall inspection of chest normal and palpation of chest normal Breast/Axilla Inspection: Negative for other Resp normal respiratory effort and clear to auscultation bilaterally Effort and Inspection: Negative for pain with movement Auscultation: Negative for rales, rhonchi or wheezes Cardio regular rhythm, S1 normal heart sound, S2 normal heart sound and no murmurs Jugular Venous Distention: Negative for other Palpation: Negative for palpable S3 Rate: regular rate Rhythm: Negative for abnormal rhythm GI normal to inspection, nondistended, normoactive bowel sounds, non-tender, non-distended and no masses Inspection: Negative for abdominal distention Auscultation: normoactive bowel sounds Palpation: soft; Negative for tender or guarding Back/Spine normal to inspection and no thoracic nor lumbar tenderness Back/Spine Narrative: Kyphotic. Nontender. Thoracic Spine / Upper Back: Negative for thoracic spinal tenderness Extremity normal to inspection and full ROM General Extremety ED: Negative for deformity, edema or tenderness General Extremity: Negative for deformity or edema Neuro oriented x3, moves all extremities and no focal motor deficits Cecilia Coma Scale: document GCS findings Spontaneous Obeys Commands Oriented 15 Sensorium / Orientation: alert, oriented to person, oriented to place and oriented to time; Negative for orientation impaired, lethargic or stuporous Motor Exam: strength 5/5 throughout Psych mental status grossly normal and thought process normal Appearance: Negative for unkempt Attitude: No agitated Mood & Affect: Negative for depressed, anxious or tearful Skin no rashes or lesions noted and No no wounds Skin Narrative: Superficial laceration to the right forehead and nose. Abrasions. Rashes: No rashes noted Trauma: abrasion MDM MDM MDM Narrative Medical decision making narrative: 86-year-old male fell at a store. I do not know if he fell or had a syncopal episode. He did not have any prefall symptoms. But he does not remember tripping. His exam other than the forehead laceration and nasal contusion laceration is benign. EKG and screening labs to be obtained. Orthostatic vital signs and he will be ambulated. I will CAT scan his head due to facial trauma and possible brief loss of consciousness. Clinically his exam is benign other than the abrasions and lacerations which do not need to be repaired. Repeat exam patient is doing well well at 9:27 PM. Orthostatic vital signs were negative. I did review his old records. Normal labs. He will be discharged home with outpatient follow-up. He and I went over his test results. His old records are consistent with a baseline anemia with his hemoglobin hematocrit with ER today. Lab Data Attestation: I reviewed the patient's lab results. Lab results narrative: CBC shows a white count of 5. H&H 9.6 and 32.5 which is his baseline chronic anemia. Platelets of 231. Electrolytes show a gap of 3 BUN of 26 creatinine 0.85. Glucose of 112. CT of his brain is read by the radiologist shows no acute abnormality. Chest x-ray shows no acute abnormality. Labs: Laboratory Results - last 24 hr 09/29/22 09/29/22 20:30 20:30 WBC 5.0 RBC 3.89 L Hgb 9.6 L Hct 32.5 L MCV 83.5 MCH 24.7 L MCHC 29.5 L RDW Std Deviation 52.2 H RDW Coeff of Josue 17.0 H Plt Count 231 MPV 9.2 Immature Gran % (Auto) 0.200 Neut % (Auto) 56.5 Lymph % (Auto) 26.8 [place] % (Auto) 11.3 H Eos % (Auto) 4.6 Baso % (Auto) 0.6 Absolute Neuts (auto) 2.8 Absolute Lymphs (auto) 1.33 Nucleated RBC % 0 Sodium 142 Potassium 3.7 Chloride 109 H Carbon Dioxide 30.0 Anion Gap 3 L BUN 26 H Creatinine 0.85 Estim Creat Clear Calc 67.50 Est GFR (MDRD) Af Amer 109 Est GFR (MDRD) Non-Af 90 BUN/Creatinine Ratio 30.5 H Glucose 112 H Calcium 9.0 Radiography Diagnostic Testing: Clinical Impression(s) from Imaging Studies Brain CT 09/29/22 19:41 IMPRESSION: 1. No acute intracranial abnormality. 2. Underlying senescent change with small vessel ischemia. Electronically Signed: Km Soria MD at 21:24 EST , Chest X-Ray 09/29/22 19:52 IMPRESSION: No acute findings in the chest. Electronically Signed: Km Soria MD at 20:11 EST , Chest x-ray, portable, single view, interpreted myself and radiologist shows no acute abnormality. Normal cardiac silhouette. Normal mediastinum. Left-sided pacemaker defibrillator. Lungs are normal. No infiltrate. Discharge Plan Triage Chief Complaint: Laceration ED Provider: Spenser Devries Dx/Rx/DC Orders Clinical Impression: Fall, Closed head injury, Contusion of face, Face lacerations, History of cardiomyopathy, History of cardiac defibrillator placement Instructions: ED Facial Contusion, ED Head Injury (Adult) Prescriptions: No Action aspirin [Adult Low Dose Aspirin] 81 mg tablet,delayed release (DR/EC) 81 mg PO QDAY finasteride 5 mg tablet 5 mg PO QDAY ropinirole 1 mg tablet 1 mg PO TID Label Comments: 1 MG, 1/2 Tablet PO TID Rx Instructions: 1 MG, 1/2 Tablet PO TID carbidopa-levodopa 1 EACH tablet extended release 1 ea PO DAILY sertraline 100 MG tablet 100 mg PO DAILY simvastatin 40 MG tablet 40 mg PO QHS carbidopa-levodopa 1 EACH tablet,disintegrating 1 ea PO TID Cholecalciferol (Vitamin D3) [Vitamin D3] 5,000 UNIT capsule 5,000 unit PO MO carvedilol 6.25 mg tablet 6.25 mg PO BID Qty: 180 3RF Primary Care Provider: Collin Huang Chi Referrals: Collin Huang Chi, MD [Primary Care Provider] - As Needed Activity Restrictions/Additional Instructions: Ice to your face. Keep the cuts clean. Return if severe headache, vomiting or feel a lot worse. Your labs EKG and CAT scan were unremarkable. Disposition Disposition: Home, Self Care
--- NOTE | 2022-09-29 19:52 | RAD_ITS ---
EXAM: XR CHEST, 1 VIEW CLINICAL INDICATION: syncope TECHNIQUE: Frontal view of the chest. This report was created using [employer] report generation technology. COMPARISON: 09/14/2020 FINDINGS: LUNGS AND PLEURAL SPACES: Unremarkable. No consolidation or edema. No pneumothorax. No effusion. HEART: Unremarkable. Cardiac silhouette not enlarged. MEDIASTINUM: Central airways and mediastinal contour are unremarkable. BONES/JOINTS: Unremarkable. SOFT TISSUES: Unremarkable. TUBES, LINES AND DEVICES: Left-sided pacemaker in good position. RAD/Chest 1 View (Portable) IMPRESSION: No acute findings in the chest. Electronically Signed: Km Soria MD at 20:11 EST ,
[2022-09-29 20:57] LABS: Absolute Lymphocyte Count 1.33 X10^3/uL (0.83-4.51); Absolute Neutrophil Count 2.8 X10^3/uL (2.0-7.7); Basophil# 0.03 X10^3/uL; Basophil% 0.6 % (0-1); Eosinophil# 0.23 X10^3/uL; Eosinophils% 4.6 % (0-5); Hematocrit 32.5 % (40-54); Hemoglobin 9.6 g/dL (13.0-16.5); Lymphocyte # 1.33 X10^3/ul (0.83-4.51); Lymphocyte % 26.8 % (19-41); Mean Corp Hgb Conc 29.5 g/dL (32-36); Mean Corpuscular Hgb 24.7 pg (27.0-32.0); Mean Corpuscular Volume 83.5 fL (80-94); Mean Platelet Vol. 9.2 fl (6.2-12.0); Monocyte# 0.56 X10^3/uL; Monocyte% 11.3 % (0-10); NRBC Flagged by Analyzer 0 % (0-5); Neutrophil # 2.81 X10^3/uL (2.7-7.7); Neutrophil % 56.5 % (47-70); Platelet Count 231 K/mm3 (150-450); RBC Distribution Width SD 52.2 fl (35.1-43.9); Red Blood Count 3.89 M/mm3 (4.6-6.2)
[2022-09-29 21:06] LABS: Anion Gap 3 (5-15); BUN 26 mg/dL (7-18); BUN/Creat Ratio 30.5 RATIO (10-20); Chloride 109 mmol/L (98-107); Creatinine, Serum 0.85 mg/dL (0.70-1.30); EST Glomerular Filtration Rate 90 mL/min (>60); Est Glom Filt Rate - Afr Amer 109 mL/min (>60); Glucose 112 mg/dL (74-106); Potassium 3.7 mmol/L (3.5-5.1); Sodium Level 142 mmol/L (136-145)
[2022-09-29 21:14] VITALS: BP 133/76; BP 146/79; BP 156/77; PULSE 58; PULSE 60; PULSE 64
--- NOTE | 2022-09-29 21:50 | ED.RN ---
this nurse called pt's sister, per pt's request, due to no transportation available at this time to take pt to [employer] parking. left message to call the emergency department.
== END 2022-09-29 21:56 | disposition home or self-care (01) ==
PROVIDERS: Emergency Provider Emergency Medicine; PCP Family Medicine Geriatric Medicine; Visit Provider Emergency Medicine
DX: S01.81XA Laceration without foreign body of other part of head, initial encounter (principal); Z95.810 Presence of automatic (implantable) cardiac defibrillator; W19.XXXA Unspecified fall, initial encounter
CPT/HCPCS: 70450; 71045; 80048; 85025; 93005; 99285

== ENCOUNTER 2022-11-05 17:59 | Emergency (ER) | payer MEDICARE, SELFPAY ==
[2022-11-05 18:01] VITALS: BP 144/93; PULSE 82; RESP 18; TEMP 36.4; O2SAT 99; BMI 25.0
--- NOTE | 2022-11-05 19:42 | CT_ITS ---
We are attempting to reach an attending provider to discuss findings. An addendum with communication details will be sent when the communication is complete. STUDY: CT ABDOMEN AND PELVIS WITH CONTRAST REASON FOR EXAM: Male, 86 years old. hernia RADIATION DOSAGE (If Supplied By Facility): CTDIvol = ( 12.97 ) mGy, DLP = ( 601.02 ) mGycm TECHNIQUE: Transaxial images were obtained from the dome of the diaphragm to the symphysis pubis without oral contrast. IV 100mL Isovue-370 was administered. Sagittal and coronal images were reconstructed. Individualized dose optimization techniques were used for this CT. COMPARISON: None. FINDINGS: The visualized lung bases are unremarkable. The visualized portions of the heart are within normal limits. Multiple hepatic cysts with the largest measuring 1.8 cm in the anterior segment of the right lobe. Normal gallbladder and extrahepatic biliary system. Normal spleen. Normal pancreas. Normal bilateral adrenal glands. Normal right kidney. Normal left kidney. Normal visualized stomach. Normal small intestine. Normal colon. The appendix is visualized and appears normal. Normal abdominal aorta. Normal inferior vena cava. Normal retroperitoneum. Normal urinary bladder. There is enlargement of the prostate gland. Large left inguinal hernia with incarceration of small bowel and sigmoid colon. The small bowel is dilated proximal to the hernia worrisome for strangulation with obstruction. No bowel wall thickening or pneumatosis to suggest ischemia. No pneumoperitoneum to suggest perforation. Normal osseous structures. CT/Abdomen/Pelvis W IV Cont ONLY IMPRESSION: Large left inguinal hernia with incarcerated sigmoid colon and small bowel producing a moderate small bowel obstruction. No perforation. Electronically Signed: Naeem Orlando MD at 20:50 EST ,
[2022-11-05 19:44] LABS: Absolute Lymphocyte Count 1.49 X10^3/uL (0.83-4.51); Absolute Neutrophil Count 4.3 X10^3/uL (2.0-7.7); Basophil# 0.03 X10^3/uL; Basophil% 0.5 % (0-1); Eosinophil# 0.12 X10^3/uL; Eosinophils% 1.8 % (0-5); Hematocrit 35.2 % (40-54); Lymphocyte # 1.49 X10^3/ul (0.83-4.51); Lymphocyte % 22.5 % (19-41); Mean Corp Hgb Conc 28.4 g/dL (32-36); Mean Corpuscular Hgb 23.5 pg (27.0-32.0); Mean Corpuscular Volume 82.8 fL (80-94); Mean Platelet Vol. 9.1 fl (6.2-12.0); Monocyte# 0.66 X10^3/uL; NRBC Flagged by Analyzer 0 % (0-5); Neutrophil # 4.29 X10^3/uL (2.7-7.7); Neutrophil % 64.6 % (47-70); Platelet Count 223 K/mm3 (150-450); RBC Distribution Width SD 50.5 fl (35.1-43.9); Red Blood Count 4.25 M/mm3 (4.6-6.2); White Blood Count 6.6 K/mm3 (4.4-11.0)
--- NOTE | 2022-11-05 19:45 | EDS_ITS ---
HPI HPI - GI History of Present Illness Chief Complaint: Abd Pain Narrative Narrative: 86-year-old male presenting with hernia. His family states has had this for years. Its been slowly getting worse. Now it hurts when he walks. He has been told for years just to watch it. The family present today states that they knew nothing about it. He also stated that he does not usually tell them anything. He does state it is very painful especially when he is walking. No dysuria or hematuria. No fever, chills. Apparently this has been worse for about a week. Patient previously had surgery for a bowel obstruction but this perforated and he needed further surgery. Patient and family state that their surgeon was Dr. Shukla. [facility] Medical History Anxiety Benign prostate hyperplasia Essential (primary) hypertension Hyperlipidemia Hypertrophic cardiomyopathy Non-ischemic cardiomyopathy Syncope and collapse Tremor Ventricular tachycardia Home Medications aspirin 81 mg tablet,delayed release (Adult Low Dose Aspirin) 81 mg PO QDAY 02/18/18 [History Last Taken 02/12/19] finasteride 5 mg tablet 5 mg PO QDAY 02/18/18 [History Last Taken 02/12/19] ropinirole 1 mg tablet 1 mg PO TID 02/18/18 [History Last Taken 02/12/19] carbidopa 25 mg-levodopa 250 mg disintegrating tablet 1 ea PO TID 02/12/19 [History Last Taken Unknown] carbidopa ER 50 mg-levodopa 200 mg tablet,extended release 1 ea PO DAILY 02/12/19 [History Last Taken Unknown] sertraline 100 mg tablet 100 mg PO DAILY 02/12/19 [History Last Taken Unknown] simvastatin 40 mg tablet 40 mg PO QHS 02/12/19 [History Last Taken Unknown] Cholecalciferol (Vitamin D3) [Vitamin D3] 5,000 unit PO MO 09/14/20 [History Last Taken Unknown] carvedilol 6.25 mg tablet 6.25 mg PO BID #180 tabs 07/04/22 [Rx Last Taken Unknown] Allergy/AdvReac Type Severity Reaction Status Date / Time No Known Allergies Allergy Verified 11/05/22 18:04 Family History Brother CAD (coronary artery disease) Surgical History History of implantable cardiac defibrillator (ICD) (02/19/19) Hx of appendectomy Hx of hernia repair Social History Smoking Status: Never smoker ROS ROS ED Constitutional Constitutional ED: Denies chills, fever(s) or sweats Eyes Eyes: Denies blurry vision or change in vision ENT ENT ED: Denies ear pain or sore throat Cardiovascular Cardiovascular: Denies chest pain, palpitations or racing heartbeat Respiratory/Chest Respiratory/Chest: Denies cough, dyspnea or sputum Gastrointestinal Gastrointestinal: Reports abdominal pain and other Details: Hernia ; Denies diarrhea, nausea or vomiting Genitourinary Genitourinary ED: Denies dysuria, hematuria or urinary frequency Musculoskeletal Musculoskeletal: Denies arthralgias, myalgias or neck pain Integumentary Denies abscess, Abrasions or rash Neurologic Neurologic: Denies headache(s), paresthesias or weakness Psychiatric Psychiatric: Denies anxiety, depression, suicidal ideation or suicidal thoughts Endocrine Endocrinology: Denies polydipsia or polyuria EXAM Physical Exam Const Vital Signs: 11/05/22 18:01 Temperature 97.6 F L Temperature Source Temporal Pulse Rate 82 Respiratory Rate 18 Blood Pressure 144/93 H Blood Pressure Mean 110 Pulse Ox 99 Oxygen Delivery Method Room Air Positive well nourished General Appearance ED: NAD; Negative for pallor HEENT Reports TM's clear and moist mucous membranes Tympanic Membrane ED: Yes TM's clear Eyes PERRL and EOMs intact bilaterally Neck no lymphadenopathy Resp normal respiratory effort and clear to auscultation bilaterally Auscultation: Negative for rales, rhonchi or wheezes Cardio regular rate and regular rhythm GI Palpation: tender LLQ and RLQ and hernia Back/Spine no CVA tenderness Neuro CN's II-XII intact bilaterally Sensorium / Orientation: alert Motor Exam: strength 5/5 throughout Psych mental status grossly normal and thought process normal Skin no wounds General Skin Exam: Negative for jaundice or pallor MDM MDM MDM Narrative Medical decision making narrative: Patient presenting with large inguinal hernia. This been there for about a week. Is not reducible. Patient medicated with morphine and Zofran. CBC obtained to assess white blood cell count, hemoglobin, differential. CMP to assess liver function, renal function, electrolytes. Urinalysis assess for UTI. Will obtain CT abdomen pelvis. Discharge Plan Triage Chief Complaint: Abd Pain ED Provider: Jose Luis Mercado Dx/Rx/DC Orders Prescriptions: No Action aspirin [Adult Low Dose Aspirin] 81 mg tablet,delayed release (DR/EC) 81 mg PO QDAY finasteride 5 mg tablet 5 mg PO QDAY ropinirole 1 mg tablet 1 mg PO TID Label Comments: 1 MG, 1/2 Tablet PO TID Rx Instructions: 1 MG, 1/2 Tablet PO TID carbidopa-levodopa 1 EACH tablet extended release 1 ea PO DAILY sertraline 100 MG tablet 100 mg PO DAILY simvastatin 40 MG tablet 40 mg PO QHS carbidopa-levodopa 1 EACH tablet,disintegrating 1 ea PO TID Cholecalciferol (Vitamin D3) [Vitamin D3] 5,000 UNIT capsule 5,000 unit PO MO carvedilol 6.25 mg tablet 6.25 mg PO BID Qty: 180 3RF Primary Care Provider: Collin Huang Chi Referrals: Collin Hunag Chi, MD [Primary Care Provider] -
[2022-11-05] MEDS: Morphine 4 MG/ML Syringe IV (19:54)
[2022-11-05] MEDS: Ondansetron 4 MG/2 ML Vial IV (19:54)
[2022-11-05 20:00] LABS: ALB/GLOB Ratio 0.7 RATIO (0.9-2.4); AST(SGOT) 11 U/L (15-37); Alanine Aminotransfer ALT/SGPT 10 U/L (16-61); Albumin, Serum 3.1 g/dL (3.2-5.0); Alkaline Phosphatase 26 U/L (45-117); Anion Gap 7 (5-15); BUN 33 mg/dL (7-18); BUN/Creat Ratio 34.9 RATIO (10-20); Chloride 106 mmol/L (98-107); Creatinine, Serum 0.94 mg/dL (0.70-1.30); EST Glomerular Filtration Rate 80 mL/min (>60); Est Glom Filt Rate - Afr Amer 97 mL/min (>60); Estimated Creatinine Clearance 61.91 ml/min; Globulin 4.2 g/dL (2.2-4.2); Glucose 98 mg/dL (74-106); Lipase 130 U/L (73-393); Potassium 3.5 mmol/L (3.5-5.1); Protein, Total 7.3 g/dL (6.4-8.2); Sodium Level 141 mmol/L (136-145)
[2022-11-05 21:08] LABS: Mucous, Urine 0 SEEN /hpf (<or=2+)
[2022-11-05 21:09] LABS: Color, Urine Yellow (Yellow); Glucose, Dipstick Normal (Normal); Ketone-Dipstick 15 mg/dl (Negative); Leukocyte Esterase-Dipstick 25 /ul (Negative); Nitrite-Dipstick Negative (Negative); Occult Blood-Urine 10 /ul (Negative); Protein-Dipstick 30 mg/dl (Negative); Urine Bilirubin Dipstick Negative (Negative); Urine Clarity Clear (Clear); Urine Urobilinogen 4 mg/dl (Normal)
[2022-11-05 21:14] LABS: Red Blood Cells-Urine 0-5 SEEN /hpf (0-5); Squamous Epithelial Cells - UA 0-5 SEEN /hpf (0-5); White Blood Cells 0-5 SEEN /hpf (0-5)
[2022-11-05 21:15] LABS: Bacteria RARE /hpf (None Seen)
--- NOTE | 2022-11-05 21:45 | EX.PCM.CON.S ---
Assessment & Plan Assessment/Plan (1) Incarcerated left inguinal hernia: PLAN: Unfortunately I believe he may be having changes with the the bowel that is incarcerated in his hernia. Making matters worse is at least 50% of his intestines are in this hernia. He does have cardiomyopathy his last ejection fraction in 2012 was 50%. I would surmise that it is significantly worse now. This is not something I can handle here in [place] and he needs to be transferred to a tertiary referral center for evaluation for surgery. HPI Consult Data Date of Consult: 11/05/22 HPI Narrative HPI Narrative: RYAN SMALL, is a 86 M who presentswith hernia.? His family states has had this for years.? Its been slowly getting worse.? Now it hurts when he walks.? He has been told for years just to watch it.? The family present today states that they knew nothing about it.? He also stated that he does not usually tell them anything.? He does state it is very painful especially when he is walking.? No dysuria or hematuria.? No fever, chills.? Apparently this has been worse for about a week.? CAT scan was performed which shows an extremely large left inguinal hernia there is no obvious signs of perforation or ischemia however more than 50% of his bowel is in this hernia. He is not complaining of any obvious abdominal pain but he states that his scrotum is exquisitely tender. Back in 2012 he presented with an incarcerated right inguinal hernia. For which I treated him with a laparoscopic right inguinal hernia repair unfortunately he had to go back to surgery for repair of enterotomies. He did well from that surgery and was subsequently discharged. He really is unsure of exactly how long he has had this hernia. He has been getting along with it until tonight when it became acutely more painful. [facility] Medical History (Updated 11/05/22 @ 21:[address] Jose Alfredo Shukla MD) Anxiety Benign prostate hyperplasia Essential (primary) hypertension Hyperlipidemia Hypertrophic cardiomyopathy Non-ischemic cardiomyopathy Syncope and collapse Tremor Ventricular tachycardia Home Medications aspirin 81 mg tablet,delayed release (Adult Low Dose Aspirin) 81 mg PO QDAY 02/18/18 [History Last Taken 02/12/19] finasteride 5 mg tablet 5 mg PO QDAY 02/18/18 [History Last Taken 02/12/19] ropinirole 1 mg tablet 1 mg PO TID 02/18/18 [History Last Taken 02/12/19] carbidopa 25 mg-levodopa 250 mg disintegrating tablet 1 ea PO TID 02/12/19 [History Last Taken Unknown] carbidopa ER 50 mg-levodopa 200 mg tablet,extended release 1 ea PO DAILY 02/12/19 [History Last Taken Unknown] sertraline 100 mg tablet 100 mg PO DAILY 02/12/19 [History Last Taken Unknown] simvastatin 40 mg tablet 40 mg PO QHS 02/12/19 [History Last Taken Unknown] Cholecalciferol (Vitamin D3) [Vitamin D3] 5,000 unit PO MO 09/14/20 [History Last Taken Unknown] carvedilol 6.25 mg tablet 6.25 mg PO BID #180 tabs 07/04/22 [Rx Last Taken Unknown] Allergy/AdvReac Type Severity Reaction Status Date / Time No Known Allergies Allergy Verified 11/05/22 18:04 Family History Brother CAD (coronary artery disease) Surgical History History of implantable cardiac defibrillator (ICD) (02/19/19) Hx of appendectomy Hx of hernia repair Social History Smoking Status: Never smoker ROS Constitutional Constitutional: Denies anorexia, chills, fatigue or fever(s) Gastrointestinal Gastrointestinal: Reports abdominal pain; Denies nausea or vomiting Genitourinary Genitourinary: Denies change in urinary stream Physical Exam Const alert, oriented x3 and no apparent distress HEENT normocephalic and head/scalp atraumatic Eyes PERRL and EOMs intact bilaterally Resp clear to auscultation bilaterally Cardio Rate: regular rate Rhythm: regular rhythm GI soft to palpation GI Narrative: Patient has an incarcerated left inguinal hernia exquisitely tender to touch it is not hot it does not have any redness over the skin. It is not reducible Lab / Micro Data Result Diagrams: 11/05/22 19:37 11/05/22 19:37 Labs: Laboratory Results - last 24 hr 11/05/22 19:37: WBC 6.6, RBC 4.25 L, Hgb 10.0 L, Hct 35.2 L, MCV 82.8, MCH 23.5 L, MCHC 28.4 L, RDW Std Deviation 50.5 H, RDW Coeff of Josue 17.0 H, Plt Count 223, MPV 9.1, Immature Gran % (Auto) 0.600, Neut % (Auto) 64.6, Lymph % (Auto) 22.5, [place] % (Auto) 10.0, Eos % (Auto) 1.8, Baso % (Auto) 0.5, Absolute Neuts (auto) 4.3, Absolute Lymphs (auto) 1.49, Nucleated RBC % 0 11/05/22 19:37: Sodium 141, Potassium 3.5, Chloride 106, Carbon Dioxide 28.0, Anion Gap 7, BUN 33 H, Creatinine 0.94, Estim Creat Clear Calc 61.91, Est GFR (MDRD) Af Amer 97, Est GFR (MDRD) Non-Af 80, BUN/Creatinine Ratio 34.9 H, Glucose 98, Calcium 9.0, Total Bilirubin 0.60, AST 11 L, ALT 10 L, Alkaline Phosphatase 26 L, Total Protein 7.3, Albumin 3.1 L, Globulin 4.2, Albumin/Globulin Ratio 0.7 L, Lipase 130 11/05/22 20:58: Urine Color Yellow, Urine Clarity Clear, Urine pH 5.0, Ur Specific [place] 1.020, Urine Protein 30 H, Urine Glucose (UA) Normal, Urine Ketones 15 H, Urine Occult Blood 10 H, Urine Nitrite Negative, Urine Bilirubin Negative, Urine Urobilinogen 4 H, Ur Leukocyte Esterase 25 H, Urine RBC 0-5 SEEN, Urine WBC 0-5 SEEN, Ur Squamous Epith Cells 0-5 SEEN, Urine Bacteria RARE, Urine Mucus 0 SEEN 11/05/22 21:00: Lactic Acid 1.0 Radiology Impression Abdomen/Pelvis CT 11/05/22 19:42 IMPRESSION: Large left inguinal hernia with incarcerated sigmoid colon and small bowel producing a moderate small bowel obstruction. No perforation. Electronically Signed: Naeem Orlando MD at 20:50 EST , ADDENDUM: 11/05/222108 IMPRESSION: Large left inguinal hernia with incarcerated sigmoid colon and small bowel producing a moderate small bowel obstruction. No perforation. N.B. : The above Results were Read Back by Naeem Orlando MD to Jose Luis Mercado DO, and understanding confirmed on 11/05/2022 21:02:38 (ET). Electronically Signed: Naeem Orlando MD at 20:50 EST ,
[2022-11-05 22:50] VITALS: BP 142/75; PULSE 73; RESP 18; O2SAT 98
[2022-11-05 23:41] VITALS: BP 134/87; PULSE 83; RESP 17; TEMP 37; O2SAT 99
== END 2022-11-06 00:58 | disposition short-term general hospital (02) ==
PROVIDERS: Emergency Provider Student in an Organized Health Care Education/Training Program; PCP Family Medicine Geriatric Medicine; Visit Provider Student in an Organized Health Care Education/Training Program
DX: K40.90 Unilateral inguinal hernia, without obstruction or gangrene, not specified as recurrent (principal); I42.2 Other hypertrophic cardiomyopathy; I10 Essential (primary) hypertension; Z95.810 Presence of automatic (implantable) cardiac defibrillator; Z79.899 Other long term (current) drug therapy
CPT/HCPCS: 74177; 80053; 81001; 83605; 83690; 85025; 96365; 96375; 99284; Q9967; A4216; J2405

== ENCOUNTER → 2022-12-03 | Outpatient (REF) | payer MEDICARE, SELFPAY ==
[2022-12-03 07:59] LABS: Hematocrit 28.1 % (40-54); Hemoglobin 8.2 g/dL (13.0-16.5); Mean Corp Hgb Conc 29.2 g/dL (32-36); Mean Corpuscular Hgb 24.3 pg (27.0-32.0); Mean Corpuscular Volume 83.4 fL (80-94); Mean Platelet Vol. 10.2 fl (6.2-12.0); Platelet Count 221 K/mm3 (150-450); RBC Distribution Width CV 17.5 % (11.6-14.6); RBC Distribution Width SD 53.8 fl (35.1-43.9); Red Blood Count 3.37 M/mm3 (4.6-6.2); White Blood Count 7.7 K/mm3 (4.4-11.0)
[2022-12-03 08:25] LABS: Anion Gap 7 (5-15); BUN 23 mg/dL (7-18); BUN/Creat Ratio 29.4 RATIO (10-20); Calcium,Total 8.7 mg/dL (8.5-10.1); Chloride 108 mmol/L (98-107); Creatinine, Serum 0.78 mg/dL (0.70-1.30); EST Glomerular Filtration Rate 100 mL/min (>60); Est Glom Filt Rate - Afr Amer 121 mL/min (>60); Glucose 91 mg/dL (74-106); Magnesium 1.9 mg/dL (1.6-2.6); Potassium 3.6 mmol/L (3.5-5.1); Sodium Level 143 mmol/L (136-145); Thyroid Stim Hormone (TSH) 2.13 uIU/mL (0.358-3.74)
[2022-12-03 09:03] LABS: Vitamin B12 319 pg/mL (211-911); Vitamin D,25 Hydroxy 55.1 ng/mL
== END ==
LOC: OLS.SW 05:00
PROVIDERS: PCP Family Medicine Geriatric Medicine; Visit Provider Internal Medicine
DX: F03.90 Unspecified dementia, unspecified severity, without behavioral disturbance, psychotic disturbance, mood disturbance, and anxiety (principal); G20 Parkinson's disease; E55.9 Vitamin D deficiency, unspecified
CPT/HCPCS: 36415; 80048; 82306; 82607; 83735; 84443; 85027

== ENCOUNTER 2022-12-15 09:32 | Emergency (ER) | payer MEDICARE, SELFPAY ==
[2022-12-15 09:35] VITALS: BP 129/61; PULSE 63; RESP 14; TEMP 36.8; O2SAT 95; BMI 21.4
--- NOTE | 2022-12-15 09:40 | EKG12_ITS ---
Test Reason : CELLULITES Blood Pressure : / mmHG Vent. Rate : 064 BPM Atrial Rate : 277 BPM P-R Int : 000 ms QRS Dur : 162 ms QT Int : 518 ms P-R-T Axes : 012 -55 120 degrees QTc Int : 534 ms Atrial flutter with variable A-V block Left axis deviation Left bundle branch block Abnormal ECG Confirmed by TYLOR CHINCHILLA, MARILYN ([id number]), mapping editor SHAKA MARTÍNEZ ([id number]) on 12/17/2022 2:11:04 PM Referred By: BB Confirmed By:MARILYN SNIDER MD
--- NOTE | 2022-12-15 09:45 | EDS_ITS ---
HPI History of Present Illness Chief Complaint: Cellulitis Informant: patient, EMS and SNF Narrative Narrative: [facility] this morning because of being unresponsive. Upon EMSs arrival, they state he was responsive and at his baseline, and they think he was sleeping when the nurses evaluated him. He is brought here around 9:30 AM Saturday morning. EMS states upon evaluating him at the assisted facility, where he is a patient due to dementia and Parkinson's disease and a DNR comfort care only, nursing told them that his temperature was just over 99 and they did a rapid COVID test and it was positive this morning. Patient states he feels fine other than a little tired. He admits to having a minor cough lately. No dyspnea, no sore throat, no headache, no pain elsewhere. EMS noted some redness on his left leg. The patient was not aware of this. [facility] Medical History (Updated 12/15/22 @ 09:[address] Shamir Reed MD) Anxiety Benign prostate hyperplasia Essential (primary) hypertension Hyperlipidemia Hypertrophic cardiomyopathy Non-ischemic cardiomyopathy Syncope and collapse Tremor Ventricular tachycardia Home Medications aspirin 81 mg tablet,delayed release (Adult Low Dose Aspirin) 81 mg PO QDAY 02/18/18 [History Last Taken 02/12/19] finasteride 5 mg tablet 5 mg PO QDAY 02/18/18 [History Last Taken 02/12/19] ropinirole 1 mg tablet 1 mg PO TID 02/18/18 [History Last Taken 02/12/19] carbidopa 25 mg-levodopa 250 mg disintegrating tablet 1 ea PO TID 02/12/19 [History Last Taken Unknown] carbidopa ER 50 mg-levodopa 200 mg tablet,extended release 1 ea PO DAILY 02/12/19 [History Last Taken Unknown] sertraline 100 mg tablet 100 mg PO DAILY 02/12/19 [History Last Taken Unknown] simvastatin 40 mg tablet 40 mg PO QHS 02/12/19 [History Last Taken Unknown] Cholecalciferol (Vitamin D3) [Vitamin D3] 5,000 unit PO MO 09/14/20 [History Last Taken Unknown] carvedilol 6.25 mg tablet 6.25 mg PO BID #180 tabs 07/04/22 [Rx Last Taken Unknown] cephalexin 500 mg capsule 500 mg PO Q6 #40 CAPSULES 12/15/22 [Rx Last Taken Unknown] nirmatrelvir 300 mg (150 mg x2)-ritonavir 100 mg tablet,dose pack(EUA) (Paxlovid) See Rx Instructions PO .COMPLEX #30 tabs 12/15/22 [Rx Last Taken Unknown] Allergy/AdvReac Type Severity Reaction Status Date / Time No Known Allergies Allergy Verified 11/05/22 18:04 Family History Brother CAD (coronary artery disease) Surgical History History of implantable cardiac defibrillator (ICD) (02/19/19) Hx of appendectomy Hx of hernia repair Social History Smoking Status: Never smoker ROS ROS ED Review of Systems ROS Unobtainable: other Details: limited due to dementia Constitutional Constitutional ED: Denies chills Eyes Eyes: Denies change in vision or diplopia ENT ENT ED: Denies sore throat Cardiovascular Cardiovascular: Denies chest pain or palpitations Respiratory/Chest Respiratory/Chest: Reports cough; Denies dyspnea Gastrointestinal Gastrointestinal: Denies abdominal pain, diarrhea, nausea or vomiting Musculoskeletal Musculoskeletal: Denies back pain or neck pain Integumentary Denies abscess Neurologic Neurologic: Denies headache(s), paresthesias or weakness Psychiatric Psychiatric: Denies anxiety or suicidal thoughts EXAM Physical Exam Const Vital Signs: 12/15/22 09:35 12/15/22 09:40 12/15/22 11:15 Temperature 98.3 F Temperature Source Temporal Pulse Rate 63 66 Respiratory Rate 14 21 H Respiratory Effort Normal Non-Labored Blood Pressure 129/61 H 139/60 H Blood Pressure Mean 83 Pulse Ox 95 94 Oxygen Delivery Method Room Air Positive well nourished and well developed General Appearance ED: well developed and NAD HEENT Reports moist mucous membranes normocephalic and atraumatic Eyes PERRL and EOMs intact bilaterally Neck full ROM and supple Resp normal respiratory effort and clear to auscultation bilaterally Cardio regular rate and regular rhythm Rate: Negative for tachycardic GI non-tender and non-distended Auscultation: normoactive bowel sounds Palpation: soft Back/Spine no CVA tenderness General Back: other FROM Extremity Extremity Narrative: Slight mild blanching erythema left lower leg, it is from the ankle to the mid duran, does not involve the foot or the knee or anything proximal. No palpable cords, no calf tenderness, the erythema is tender and warm but not necessarily more warm than the contralateral extremity. Full range of motion of the ankle and knee without any difficulty or pain. No subcutaneous emphysema. No abscess. There is a scab on his left duran just proximal to the erythema and not involved in it. No lymphangitis. General Extremety ED: Yes tenderness; Negative for edema or pulses abnormal General Extremity: Negative for edema or pulses abnormal Neuro CN's II-XII intact bilaterally and no sensory deficits noted Neuro Narrative: Oriented to person and place not time Sensorium / Orientation: awake and alert Motor Exam: strength 5/5 throughout Skin no wounds Skin Narrative: Mildly tender erythema left lower leg, see above for details. No other rashes. No wounds on the foot. MDM MDM MDM Narrative Medical decision making narrative: Patient's vital signs are normal, he is not hypoxic, his lungs are clear he is not dyspneic, he does appear to have cellulitis on his left lower leg, I think it would be reasonable to treat that empirically with antibiotics I will give him a dose of IV Ancef 1 g here while we were performing other screening tests. His heart rhythm is normal his EKG is unremarkable, and the rest of his labs are reviewed. I think it would be reasonable to [facility] him back [facility] the [facility] on Paxlovid and cephalexin. I reviewed his medications and made the appropriate medication change recommendations given Paxlovid. Also discussed with family who arrived later. They are comfortable with this overall plan. They agree that he has not been drinking well and looked a little dehydrated lately, and agreed with the fluids we were giving him, they had discussed with personnel at the [facility] it sounded like he was very difficult to arouse this morning, my guess is because he had a fever.. Lab Data Attestation: I reviewed the patient's lab results. Labs: Laboratory Results - last 24 hr 12/15/22 12/15/22 09:50 09:50 WBC 3.8 L RBC 3.54 L Hgb 8.5 L Hct 28.4 L MCV 80.2 MCH 24.0 L MCHC 29.9 L RDW Std Deviation 49.4 H RDW Coeff of Josue 17.0 H Plt Count 160 MPV 9.1 Immature Gran % (Auto) 0.300 Neut % (Auto) 63.2 Lymph % (Auto) 16.5 L [place]rio % (Auto) 19.2 H Eos % (Auto) 0.3 Baso % (Auto) 0.5 Absolute Neuts (auto) 2.4 Absolute Lymphs (auto) 0.63 L Nucleated RBC % 0 Sodium 140 Potassium 4.0 Chloride 108 H Carbon Dioxide 27.0 Anion Gap 5 BUN 25 H Creatinine 0.90 Estim Creat Clear Calc 61.42 Est GFR (MDRD) Af Amer 103 Est GFR (MDRD) Non-Af 85 BUN/Creatinine Ratio 27.9 H Glucose 96 Calcium 8.8 Troponin I High Sens 34 Rhythm Strip Rhythm Strip: Sinus Rhythm Rate: 65 Ectopy: None EKG Initial EKG: Attestation: I personally reviewed and interpreted this EKG as follows: Interpretation: Sinus Rhythm, No Acute Injury Pattern and LBBB Prior EKG tracings: available for review Prior: Unchanged Discharge Plan Triage Chief Complaint: Cellulitis ED Provider: Shamir Reed Dx/Rx/DC Orders Clinical Impression: COVID-19, Cellulitis of left lower leg Instructions: ED Cellulitis Prescriptions: New cephalexin [cephalexin] 500 mg capsule 500 mg PO Q6 Qty: 40 0RF Paxlovid (EUA) 300 mg (150 mg x 2)-100 mg tablets,dose pack See Rx Instructions .ROUTE .COMPLEX Qty: 30 0RF Rx Instructions: take TWO 150 mg tablets of nirmatrelvir with ONE 100 mg tablet of ritonavir twice daily for 5 days Held finasteride 5 mg tablet 5 mg PO QDAY Hold Instructions: Resume on 12/22/22. simvastatin 40 MG tablet 40 mg PO QHS Hold Instructions: Resume on 12/22/22. No Action aspirin [Adult Low Dose Aspirin] 81 mg tablet,delayed release (DR/EC) 81 mg PO QDAY ropinirole 1 mg tablet 1 mg PO TID Label Comments: 1 MG, 1/2 Tablet PO TID Rx Instructions: 1 MG, 1/2 Tablet PO TID carbidopa-levodopa 1 EACH tablet extended release 1 ea PO DAILY sertraline 100 MG tablet 100 mg PO DAILY carbidopa-levodopa 1 EACH tablet,disintegrating 1 ea PO TID Cholecalciferol (Vitamin D3) [Vitamin D3] 5,000 UNIT capsule 5,000 unit PO MO carvedilol 6.25 mg tablet 6.25 mg PO BID Qty: 180 3RF Primary Care Provider: Collin Huang Chi Referrals: Collin Huang Chi, MD [Primary Care Provider] - 3-5 Days if not improving Disposition Disposition: Nursing Home Facility
[2022-12-15] MEDS: 0.9% Normal Saline 1,000 ML 200 ML IV (09:52)
[2022-12-15 09:59] LABS: Absolute Lymphocyte Count 0.63 X10^3/uL (0.83-4.51); Absolute Neutrophil Count 2.4 X10^3/uL (2.0-7.7); Basophil# 0.02 X10^3/uL; Basophil% 0.5 % (0-1); Eosinophil# 0.01 X10^3/uL; Eosinophils% 0.3 % (0-5); Hematocrit 28.4 % (40-54); Hemoglobin 8.5 g/dL (13.0-16.5); Lymphocyte # 0.63 X10^3/ul (0.83-4.51); Lymphocyte % 16.5 % (19-41); Mean Corp Hgb Conc 29.9 g/dL (32-36); Mean Corpuscular Volume 80.2 fL (80-94); Mean Platelet Vol. 9.1 fl (6.2-12.0); Monocyte# 0.73 X10^3/uL; Monocyte% 19.2 % (0-10); NRBC Flagged by Analyzer 0 % (0-5); Neutrophil # 2.41 X10^3/uL (2.7-7.7); Neutrophil % 63.2 % (47-70); Platelet Count 160 K/mm3 (150-450); RBC Distribution Width SD 49.4 fl (35.1-43.9); Red Blood Count 3.54 M/mm3 (4.6-6.2); White Blood Count 3.8 K/mm3 (4.4-11.0)
[2022-12-15] MEDS: Cefazolin 1 GM/50 ML BAG IV (10:10)
[2022-12-15 10:24] LABS: Anion Gap 5 (5-15); BUN 25 mg/dL (7-18); BUN/Creat Ratio 27.9 RATIO (10-20); Calcium,Total 8.8 mg/dL (8.5-10.1); Chloride 108 mmol/L (98-107); EST Glomerular Filtration Rate 85 mL/min (>60); Est Glom Filt Rate - Afr Amer 103 mL/min (>60); Estimated Creatinine Clearance 61.42 ml/min; Glucose 96 mg/dL (74-106); Sodium Level 140 mmol/L (136-145); Troponin-I HS 34 pg/mL (3.0-78.0)
[2022-12-15 11:15] VITALS: BP 139/60; PULSE 66; RESP 21; O2SAT 94
== END 2022-12-15 11:48 | disposition skilled nursing facility (03) ==
PROVIDERS: Emergency Provider Emergency Medicine; PCP Family Medicine Geriatric Medicine; Visit Provider Emergency Medicine
DX: U07.1 COVID-19 (principal); G20 Parkinson's disease; F02.80 Dementia in other diseases classified elsewhere, unspecified severity, without behavioral disturbance, psychotic disturbance, mood disturbance, and anxiety; L03.116 Cellulitis of left lower limb; I10 Essential (primary) hypertension; E78.5 Hyperlipidemia, unspecified; Z66 Do not resuscitate; Z79.82 Long term (current) use of aspirin; Z79.899 Other long term (current) drug therapy
CPT/HCPCS: 80048; 84484; 85025; 93005; 96365; 96366; 99285; J7030

== ENCOUNTER → 2022-12-17 | Outpatient (REF) | payer MEDICARE, SELFPAY | LOC: OLS.SW 05:00 | PROVIDERS: PCP Family Medicine Geriatric Medicine; Visit Provider Internal Medicine | DX: U09.9 Post COVID-19 condition, unspecified (principal) | CPT/HCPCS: 36415; 86140 ==

== ENCOUNTER → 2023-01-22 | Outpatient (REF) | payer MEDICARE, SELFPAY ==
[2023-01-22 08:46] LABS: Absolute Lymphocyte Count 1.81 X10^3/uL (0.83-4.51); Absolute Neutrophil Count 2.8 X10^3/uL (2.0-7.7); Basophil# 0.03 X10^3/uL; Basophil% 0.5 % (0-1); Eosinophil# 0.24 X10^3/uL; Eosinophils% 4.2 % (0-5); Hematocrit 28.8 % (40-54); Hemoglobin 8.2 g/dL (13.0-16.5); Lymphocyte # 1.81 X10^3/ul (0.83-4.51); Lymphocyte % 31.8 % (19-41); Mean Corp Hgb Conc 28.5 g/dL (32-36); Mean Corpuscular Hgb 23.1 pg (27.0-32.0); Mean Corpuscular Volume 81.1 fL (80-94); Mean Platelet Vol. 9.7 fl (6.2-12.0); Monocyte# 0.85 X10^3/uL; Monocyte% 14.9 % (0-10); NRBC Flagged by Analyzer 0 % (0-5); Neutrophil # 2.75 X10^3/uL (2.7-7.7); Neutrophil % 48.4 % (47-70); Platelet Count 208 K/mm3 (150-450); RBC Distribution Width SD 50.3 fl (35.1-43.9); Red Blood Count 3.55 M/mm3 (4.6-6.2); White Blood Count 5.7 K/mm3 (4.4-11.0)
[2023-01-22 09:10] LABS: Anion Gap 7 (5-15); BUN 22 mg/dL (7-18); BUN/Creat Ratio 28.5 RATIO (10-20); Chloride 108 mmol/L (98-107); Creatinine, Serum 0.77 mg/dL (0.70-1.30); EST Glomerular Filtration Rate 101 mL/min (>60); Est Glom Filt Rate - Afr Amer 122 mL/min (>60); Ferritin 16 ng/mL (26-388); Glucose 83 mg/dL (74-106); Iron 16 ug/dL (65-175); Potassium 3.1 mmol/L (3.5-5.1); Sodium Level 142 mmol/L (136-145)
== END ==
LOC: OLS.SW 05:00
PROVIDERS: PCP Family Medicine Geriatric Medicine; Visit Provider Internal Medicine
DX: D64.9 Anemia, unspecified (principal); F03.90 Unspecified dementia, unspecified severity, without behavioral disturbance, psychotic disturbance, mood disturbance, and anxiety; Z79.899 Other long term (current) drug therapy
CPT/HCPCS: 36415; 80048; 82728; 83540; 85025

== ENCOUNTER 2023-01-23 18:14 | Emergency (ER) | payer MEDICARE, SELFPAY ==
[2023-01-23 18:15] VITALS: BP 115/69; PULSE 67; RESP 18; TEMP 36.4; O2SAT 100; BMI 21.1
--- NOTE | 2023-01-23 18:40 | CT_ITS ---
INDICATION: left hip pain -- unable to bear weight, xrays reportedly negative EXAMINATION: CT BONE - CT Lower Extremity W/O Contrast Injection TECHNIQUE: Helically acquired images were obtained of the left hip. 2-D reformats were performed by the technologist. A radiation dose optimization technique was used for this scan. IV Contrast dosage and agent: None. COMPARISON: None. FINDINGS: SOFT TISSUES: No soft tissue swelling or gas. No radiopaque foreign body. BONES/JOINTS: Nondisplaced fracture in the coronal oblique plane involving the anterior aspect of the left iliac bone with extension into the left superior pubic ramus. Nondisplaced fracture of the superior acetabulum. The femoral head is seated in the acetabulum. No sclerotic or destructive changes. CT/Extremity Lower without Contra IMPRESSION: Nondisplaced fractures of the superior left acetabulum and anterior left iliac bone with extension into the superior pubic ramus. Electronically Signed: Saul Guzman MD at 19:35 EDT ,
--- NOTE | 2023-01-23 18:40 | CT_ITS ---
ACR Level 3 findings have been noted. An addendum which confirms receipt of the report will follow. INDICATION: left hip pain, recent inguinal hernia repair EXAMINATION: CT ABDOMEN AND PELVIS WITHOUT CONTRAST - CT Abdomen And Pelvis W/O Contrast Injection TECHNIQUE: Helically acquired images were obtained of the abdomen and pelvis without oral or IV contrast. A radiation dose optimization technique was used for this scan. IV Contrast dosage and agent: None. Oral contrast: None. RADIATION DOSAGE (If Supplied By Facility): CTDIvol = ( 9.59 ) mGy, DLP = ( 484.00 ) mGycm COMPARISON: 11/05/2022 FINDINGS: LOWER CHEST: Lung bases are clear. No cardiomegaly or pericardial effusion. LIVER: Homogeneous. No focal mass. GALLBLADDER AND BILIARY TREE: No calcified gallstones. No gallbladder distension or wall edema. No intra- or extrahepatic biliary ductal dilation. PANCREAS: No focal cystic or solid mass. SPLEEN: Normal size without focal cystic or solid mass. ADRENAL GLANDS: No nodules. KIDNEYS AND URETERS: Normal renal size and position. No hydronephrosis. PERITONEUM: No ascites or free air. No other fluid collection. BOWEL: No evidence of acute appendicitis. No stomach or bowel distension. No focal inflammatory change. LYMPH NODES: No enlarged mesenteric or retroperitoneal lymph nodes. VESSELS: Aorta is non-dilated. URINARY BLADDER: Circumferential urinary bladder wall thickening is chronic, probably due to outlet obstruction. REPRODUCTIVE ORGANS: Substantial prostatomegaly and nodularity redemonstrated. ABDOMINAL WALL: Fluid in the left more than right inguinal canals. Subcutaneous inflammatory stranding. BONES: Degenerative change throughout the lumbar spine. CT/Abdomen/Pelvis without Cont IMPRESSION: 1. Enlarged, nodular prostate is suspicious for prostate cancer. 2. Fluid in the right more than left inguinal canals with subcutaneous inflammatory stranding. Electronically Signed: Saul Guzman MD at 19:29 EDT ,
--- NOTE | 2023-01-23 18:41 | EDS_ITS ---
HPI History of Present Illness Chief Complaint: Lower Extremity Injury Detail of Chief Complaint: Left hip pain Informant: patient, EMS and SNF Narrative Narrative: [place] [facility] [place]. They state his last fall was 2 weeks ago. Over the past 3 days has been complaining of left hip pain and today was unwilling to bear weight on his left hip. X-rays were reportedly done at the facility and reported as negative. On review of outside records it appears patient had a left inguinal hernia repair earlier this year. Although patient does have dementia, he tells me he has pain on the lateral aspect of his left hip. He denies pain when sitting at rest, but states when he stands it will sometimes hurt. [facility] Medical History Anxiety Benign prostate hyperplasia Dementia Essential (primary) hypertension Hyperlipidemia Hypertrophic cardiomyopathy Non-ischemic cardiomyopathy Syncope and collapse Tremor Ventricular tachycardia Home Medications aspirin 81 mg tablet,delayed release (Adult Low Dose Aspirin) 81 mg PO QDAY 02/18/18 [History Last Taken 02/12/19] finasteride 5 mg tablet 5 mg PO QDAY 02/18/18 [History Last Taken 02/12/19] ropinirole 1 mg tablet 1 mg PO TID 02/18/18 [History Last Taken 02/12/19] carbidopa 25 mg-levodopa 250 mg disintegrating tablet 1 ea PO TID 02/12/19 [History Last Taken Unknown] carbidopa ER 50 mg-levodopa 200 mg tablet,extended release 1 ea PO DAILY 02/12/19 [History Last Taken Unknown] sertraline 100 mg tablet 100 mg PO DAILY 02/12/19 [History Last Taken Unknown] simvastatin 40 mg tablet 40 mg PO QHS 02/12/19 [History Last Taken Unknown] Cholecalciferol (Vitamin D3) [Vitamin D3] 5,000 unit PO MO 09/14/20 [History Last Taken Unknown] carvedilol 6.25 mg tablet 6.25 mg PO BID #180 tabs 07/04/22 [Rx Last Taken Unknown] cephalexin 500 mg capsule 500 mg PO Q6 #40 CAPSULES 12/15/22 [Rx Last Taken Unknown] nirmatrelvir 300 mg (150 mg x2)-ritonavir 100 mg tablet,dose pack(EUA) (Paxlovid) See Rx Instructions PO .COMPLEX #30 tabs 12/15/22 [Rx Last Taken Unknown] oxycodone 5 mg tablet 5 mg PO Q8H PRN pain 4 days #14 tabs 01/23/23 [Rx Last Taken Unknown] walker #1 ea 01/23/23 [Rx Last Taken Unknown] Allergy/AdvReac Type Severity Reaction Status Date / Time Penicillins Allergy PT UNABLE Verified 01/23/23 18:20 TO RESPOND-NEEDS F/U Family History Brother CAD (coronary artery disease) Surgical History History of implantable cardiac defibrillator (ICD) (02/19/19) Hx of appendectomy Hx of hernia repair Social History Smoking Status: Never smoker ROS ROS ED Review of Systems ROS Unobtainable: other Details: Limited due to underlying dementia. Constitutional Constitutional ED: Denies fever(s) Cardiovascular Cardiovascular: Denies chest pain Respiratory/Chest Respiratory/Chest: Denies cough or dyspnea Gastrointestinal Gastrointestinal: Denies abdominal pain Musculoskeletal Musculoskeletal: Reports arthralgias EXAM Physical Exam Const Vital Signs: 01/23/23 18:15 01/23/23 20:06 01/23/23 20:55 Temperature 97.6 F L Temperature Source Temporal Pulse Rate 67 64 Respiratory Rate 18 18 16 Blood Pressure 115/69 132/47 H 132/47 H Blood Pressure Mean 84 75 Pulse Ox 100 100 Oxygen Delivery Method Room Air Room Air Positive well nourished and well developed General Appearance ED: well developed Eyes EOMs intact bilaterally Chest Wall inspection of chest normal and palpation of chest normal Resp normal respiratory effort and clear to auscultation bilaterally Cardio regular rate and regular rhythm GI GI Narrative: Palpable left inguinal hernia that is nontender to palpation. Extremity Extremity Narrative: Tenderness outpatient over the greater trochanter of the left hip. Patient does have pain with logroll of the leg. No tenderness over the thigh or lower leg. Neuro Neuro Narrative: Patient alert and answers questions. MDM MDM MDM Narrative Medical decision making narrative: Patient sent for CT scan of the abdomen pelvis to evaluate his recent inguinal hernia surgical site. CT scan of the left hip obtained given continued pain with weightbearing and negative x-rays. Radiography Diagnostic Testing: Clinical Impression(s) from Imaging Studies Abdomen/Pelvis CT 01/23/23 18:40 IMPRESSION: 1. Enlarged, nodular prostate is suspicious for prostate cancer. 2. Fluid in the right more than left inguinal canals with subcutaneous inflammatory stranding. Electronically Signed: Saul Guzman MD at 19:29 EDT Reading Location ID and State: [facility] / [place] Tel , Service support , ADDENDUM: 01/23/231950 IMPRESSION: 1. Enlarged, nodular prostate is suspicious for prostate cancer. 2. Fluid in the right more than left inguinal canals with subcutaneous inflammatory stranding. N.B. : Cinthya Raymundo MD, MD, confirmed on 01/23/2023 19:44:47 (ET) that the healthcare facility has received the radiology report. Electronically Signed: Saul Guzman MD at 19:29 EDT , Lower Extremity CT 01/23/23 18:40 IMPRESSION: Nondisplaced fractures of the superior left acetabulum and anterior left iliac bone with extension into the superior pubic ramus. Electronically Signed: Saul Guzman MD at 19:35 EDT , Treatment and Re-Evaluation :: After return from imaging, patient was given 2 mg of IV morphine for pain control. CT scan of the abdomen pelvis reveals fluid in the bilateral inguinal canals right greater than left. Prostate appears nodular and suspicious for prostate cancer. Left hip CT reveals evidence of fracture. There is a nondisplaced fracture of the superior left acetabulum and anterior left iliac bone with extension into the superior pubic ramus. I spoke with Dr. Falcon, on-call for orthopedics. He reviewed the images of the pelvic fractures. He states that they are stable and patient can weight- bear as tolerated. I spoke with patient's POA, evertjennifer Ananth. Test results were all discussed with him. Plan will be discharged back to the ECF with a prescription for pain medication as well as a walker. I did discuss with Ananth the findings of abnormal prostate suspicious for prostate cancer. He states the patient recently saw a urologist and was started on Flomax. I recommended close follow- up with the urologist to determine whether further testing would be needed given his advanced age and underlying dementia. He voices understanding and agreement. Nursing staff spoke with ECF. They request paper prescription for pain medication and walker. Addendum: Just prior to transfer, I was asked to go back in and reevaluate the patient. He apparently had crawled out of bed and fell to the floor. Nursing staff helped him up. He was able to weight-bear on both legs. When I presented bedside to evaluate the patient he states that he was sitting in a bedside chair and fell when he went to stand up. He denies any injury. When I specifically asked him how his left hip feels he states it feels better. Head neck examination reveals no external sign of trauma. He is alert and appropriate at this time. Heart is regular rate and rhythm. Lung sounds are clear. Abdomen is soft and nontender. Upper extremity examination reveals no abrasions or ecchymoses. He has full range of motion of both arms with no difficulty. Right lower extremity examination reveals no focal tenderness with palpation throughout the entire length of the leg. No pain with logroll of the hip. Left lower extremity examination reveals no tenderness over the thigh or lower leg. He continues to have pain with logroll consistent with his prior exam. P ain on exam is unchanged when compared to exam from earlier. I do not feel patient needs repeat imaging at this time. Plan will be discharged to [facility] with previous plan. Discharge Plan Triage Chief Complaint: Lower Extremity Injury ED Provider: Cinthya Raymundo Dx/Rx/DC Orders Clinical Impression: Fall, Closed pelvic fracture Instructions: ED Pelvic Fracture Prescriptions: New oxycodone 5 mg tablet 5 mg PO Q8H PRN (Reason: pain) 4 Days Qty: 14 0RF (DME) walker See Rx Instructions .Route .MEDSUPPLY Qty: 1 0RF Rx Instructions: As directed No Action aspirin [Adult Low Dose Aspirin] 81 mg tablet,delayed release (DR/EC) 81 mg PO QDAY finasteride 5 mg tablet 5 mg PO QDAY Hold Instructions: Resume on 12/22/22. ropinirole 1 mg tablet 1 mg PO TID Label Comments: 1 MG, 1/2 Tablet PO TID Rx Instructions: 1 MG, 1/2 Tablet PO TID carbidopa-levodopa 1 EACH tablet extended release 1 ea PO DAILY sertraline 100 MG tablet 100 mg PO DAILY simvastatin 40 MG tablet 40 mg PO QHS Hold Instructions: Resume on 12/22/22. carbidopa-levodopa 1 EACH tablet,disintegrating 1 ea PO TID Cholecalciferol (Vitamin D3) [Vitamin D3] 5,000 UNIT capsule 5,000 unit PO MO cephalexin [cephalexin] 500 mg capsule 500 mg PO Q6 Qty: 40 0RF Paxlovid (EUA) 300 mg (150 mg x 2)-100 mg tablets,dose pack See Rx Instructions .ROUTE .COMPLEX Qty: 30 0RF Rx Instructions: take TWO 150 mg tablets of nirmatrelvir with ONE 100 mg tablet of ritonavir twice daily for 5 days carvedilol 6.25 mg tablet 6.25 mg PO BID Qty: 180 3RF Primary Care Provider: Claudia Schofield Referrals: José Falcon DO [Med Staff - Active Staff] - 1 Week Collin Huang Chi, MD [Med Staff - Active Staff] - Activity Restrictions/Additional Instructions: You have fractures in your pelvis near the left hip. After discussion with orthopedics, you may weight-bear as tolerated but will need to use a walker to help with ambulation. Please work with physical therapy as well. Pain medication has been written to help control your symptoms. Please follow-up with orthopedics in 1 week for repeat x-rays. Disposition Disposition: Alf Facility Discharge Location: [facility]
[2023-01-23] MEDS: Morphine 2 MG/ML Syringe IV (20:03)
[2023-01-23 20:06] VITALS: BP 132/47; PULSE 64; RESP 18; O2SAT 100
[2023-01-23 20:55] VITALS: BP 132/47; RESP 16
--- NOTE | 2023-01-23 23:57 | ED.RN ---
ATTEMPTED TO NOTIFY [facility] OF PT RETURNING, NO ANSWER
== END 2023-01-23 23:20 | disposition skilled nursing facility (03) ==
PROVIDERS: Emergency Provider Emergency Medicine; PCP Internal Medicine; Visit Provider Emergency Medicine
DX: S32.402A Unspecified fracture of left acetabulum, initial encounter for closed fracture (principal); F03.90 Unspecified dementia, unspecified severity, without behavioral disturbance, psychotic disturbance, mood disturbance, and anxiety; Z95.810 Presence of automatic (implantable) cardiac defibrillator; W19.XXXA Unspecified fall, initial encounter
CPT/HCPCS: 73700; 74176; 96374; 99284

== ENCOUNTER → 2023-01-25 | Outpatient (REF) | payer MEDICARE, SELFPAY | LOC: OLS.SW 11:14 | PROVIDERS: PCP Internal Medicine; Visit Provider Internal Medicine | DX: R53.83 Other fatigue (principal) | CPT/HCPCS: 36415 ==

== ENCOUNTER → 2023-01-30 | Outpatient (REF) | payer MEDICARE, SELFPAY ==
[2023-01-30 10:37] LABS: Anion Gap 7 (5-15); BUN 17 mg/dL (7-18); BUN/Creat Ratio 22.2 RATIO (10-20); Calcium,Total 9.2 mg/dL (8.5-10.1); Chloride 107 mmol/L (98-107); Creatinine, Serum 0.77 mg/dL (0.70-1.30); EST Glomerular Filtration Rate 102 mL/min (>60); Est Glom Filt Rate - Afr Amer 124 mL/min (>60); Glucose 106 mg/dL (74-106); Potassium 3.3 mmol/L (3.5-5.1); Sodium Level 139 mmol/L (136-145)
== END ==
LOC: OLS.SW 05:00
PROVIDERS: PCP Internal Medicine; Visit Provider Internal Medicine
DX: E87.6 Hypokalemia (principal); D64.9 Anemia, unspecified
CPT/HCPCS: 36415; 80048

== ENCOUNTER 2023-01-31 18:41 | Inpatient (IN) | payer MEDICARE, MEDICAID, SELFPAY ==
[2023-01-31 18:42] VITALS: BP 125/63; PULSE 72; RESP 16; TEMP 37.6; O2SAT 94; BMI 20.6
[2023-01-31 19:22] LABS: Absolute Lymphocyte Count 1.46 X10^3/uL (0.83-4.51); Absolute Neutrophil Count 10.7 X10^3/uL (2.0-7.7); Basophil# 0.05 X10^3/uL; Basophil% 0.4 % (0-1); Eosinophil# 0.02 X10^3/uL; Eosinophils% 0.1 % (0-5); Hematocrit 29.6 % (40-54); Hemoglobin 8.6 g/dL (13.0-16.5); Lymphocyte # 1.46 X10^3/ul (0.83-4.51); Lymphocyte % 10.7 % (19-41); Mean Corp Hgb Conc 29.1 g/dL (32-36); Mean Corpuscular Hgb 23.1 pg (27.0-32.0); Mean Corpuscular Volume 79.4 fL (80-94); Mean Platelet Vol. 9.8 fl (6.2-12.0); Monocyte# 1.32 X10^3/uL; Monocyte% 9.7 % (0-10); NRBC Flagged by Analyzer 0 % (0-5); Neutrophil # 10.65 X10^3/uL (2.7-7.7); Platelet Count 240 K/mm3 (150-450); RBC Distribution Width CV 17.6 % (11.6-14.6); RBC Distribution Width SD 50.6 fl (35.1-43.9); Red Blood Count 3.73 M/mm3 (4.6-6.2); White Blood Count 13.7 K/mm3 (4.4-11.0)
--- NOTE | 2023-01-31 19:29 | CT_ITS ---
EXAM: CT ABDOMEN AND PELVIS WITH INTRAVENOUS CONTRAST CLINICAL INDICATION: back/ flank pain TECHNIQUE: Helically acquired images were obtained of the abdomen and pelvis with intravenous contrast. This CT exam was performed using one or more of the following dose reduction techniques: automated exposure control, adjustment of the mA and/or kV according to patient size, and/or use of iterative reconstruction technique. CONTRAST: IV 100mL [id number] RADIATION DOSE: CTDIvol = 18.98 mGy, DLP = 1901.97 mGy-cm COMPARISON: 01/23/2023 FINDINGS: LIMITATIONS: Exam is limited by improper positioning of patient''s arms resulting in significant streak artifact. LOWER THORAX: Unremarkable. Lung bases are clear. No cardiomegaly. No significant pericardial effusion. ABDOMEN: LIVER: Stable simple cysts the liver which is otherwise unremarkable. GALLBLADDER AND BILE DUCTS: Unremarkable. No calcified gallstones. No gallbladder distention or wall edema. No intra- or extrahepatic biliary ductal dilation. PANCREAS: Unremarkable. No focal cystic or solid mass. SPLEEN: Unremarkable. Normal size without focal cystic or solid mass. ADRENALS: Unremarkable. No nodules. KIDNEYS AND URETERS: Unremarkable. Normal renal size and position. No hydronephrosis. STOMACH AND BOWEL: Evaluation of the GI tract is limited by absence of oral contrast. Cannot exclude stomach wall thickening. No dilated loops of bowel or evidence for obstruction. Cannot exclude segmental thickening of the hernandez of the small or large bowel. Cannot exclude enteritis or colitis. Appendix within normal limits. PELVIS: APPENDIX: No evidence of acute appendicitis. BLADDER: Thickened bladder wall within which there is a heterogeneous mass which could represent neoplasm and/or extensive intraluminal extension of massive prostate enlargement. Greatest dimension of this intraluminal process is approximately 6.5 cm. Cystoscopy should be considered. REPRODUCTIVE: See above. ABDOMEN and PELVIS: INTRAPERITONEAL SPACE: Unremarkable. No ascites or other fluid collection. No free air. BONES/JOINTS: Degenerative changes throughout the bones. No suspicious lytic or blastic abnormality. SOFT TISSUES: There has been previous surgical repair of right inguinal hernia. Small to moderate left inguinal hernia is seen, less prominent than on previous study. VASCULATURE: Calcified plaque of the aorta without aneurysm. LYMPH NODES: Unremarkable. No enlarged lymph nodes. CT/Abdomen/Pelvis W IV Cont ONLY IMPRESSION: Abnormal bladder with a thickened wall and either intraluminal neoplasm and/or marked prostate enlargement extending into the bladder. Cystoscopy should be considered. Electronically Signed: Logan Morales MD at 20:54 EDT ,
--- NOTE | 2023-01-31 19:29 | CT_ITS ---
STUDY: CT CERVICAL SPINE WITHOUT CONTRAST REASON FOR EXAM: Male, 87 years old. falls RADIATION DOSAGE (If Supplied By Facility): CTDIvol = ( 22.36 ) mGy, DLP = ( 456.52 ) mGycm TECHNIQUE: High resolution transaxial imaging was performed without contrast material. Sagittal and coronal images were reconstructed. Individualized dose optimization techniques were used for this CT. COMPARISON: None FINDINGS: No definite acute fracture/dislocation. The cervical junction is intact. C1-C2 articulation is intact. There is exaggerated lordosis. There is normal alignment. Facet joints are intact at all levels bilaterally. No jumped facets. There is multilevel spondyloarthropathy. Multilevel degenerative disc disease seen. Multilevel loss of disc height. Multilevel posterior marginal osteophytes and disc bulges. There are multilevel large anterior osteophytes. Visualized paraspinal soft tissues and structures are unremarkable. CT/Spine Cervical without Contras IMPRESSION: There is no definite acute fracture/dislocation. Degenerative changes. Electronically Signed: Logan Morales MD at 20:47 EDT ,
--- NOTE | 2023-01-31 19:29 | CT_ITS ---
STUDY: CT BRAIN WITHOUT CONTRAST REASON FOR EXAM: Male, 87 years old. head trauma RADIATION DOSAGE (If Supplied By Facility): CTDIvol = ( 44.99 ) mGy, DLP = ( 1625.96 ) mGycm TECHNIQUE: Transaxial CT imaging of the brain was performed without administration of intravenous contrast material. Individualized dose optimization techniques were used for this CT. COMPARISON: 09/29/2022 FINDINGS: Normal soft tissue structures. Normal calvarium. There is mild cerebral atrophy with widening of the extra-axial spaces and ventricular dilatation. There are areas of decreased attenuation within the white matter tracts of the supratentorial brain, consistent with microvascular disease changes. Normal basal ganglia and thalami. Normal brainstem. There is mild cerebellar atrophy. There is no intracranial hemorrhage. There are no findings of an acute ischemic infarction. Normal visualized paranasal sinuses. CT/Brain/Head without Contrast IMPRESSION: Chronic involutional changes of the brain. No change or acute abnormality. Electronically Signed: Logan Morales MD at 20:41 EDT ,
[2023-01-31 19:31] LABS: International Normalized Ratio 1.5; Prothrombin Time (Protime)PT. 17.9 SECONDS (11.7-14.9)
--- NOTE | 2023-01-31 19:37 | ED.VIS.GI ---
HPI HPI - GI History of Present Illness Chief Complaint: GI Bleed Narrative Narrative: 87-year-old male with dementia. He is alert to self only. Patient does not know the date, time, year. Patient states that he did fall but he is unsure when. He is unsure if he hit his head but he does have bruising to the left forehead. There is report from the skilled nursing that he had a bloody bowel movement today that he does not recall this. Currently unknown if he is anticoagulated [facility] Medical History Anxiety Benign prostate hyperplasia Dementia Essential (primary) hypertension Hyperlipidemia Hypertrophic cardiomyopathy Non-ischemic cardiomyopathy Syncope and collapse Tremor Ventricular tachycardia Home Medications finasteride 5 mg tablet 5 mg PO QDAY 02/18/18 [History Last Taken 02/12/19] ropinirole 1 mg tablet 1 mg PO TID 02/18/18 [History Last Taken 02/12/19] sertraline 100 mg tablet 100 mg PO DAILY 02/12/19 [History Last Taken Unknown] Cholecalciferol (Vitamin D3) [Vitamin D3] 5,000 unit PO MO 09/14/20 [History Last Taken Unknown] carvedilol 6.25 mg tablet 6.25 mg PO BID #180 tabs 07/04/22 [Rx Last Taken Unknown] cephalexin 500 mg capsule 500 mg PO Q6 #40 CAPSULES 12/15/22 [Rx Last Taken Unknown] oxycodone 5 mg tablet 5 mg PO Q8H PRN pain 4 days #14 tabs 01/23/23 [Rx Last Taken Unknown] walker #1 ea 01/23/23 [Rx Last Taken Unknown] atorvastatin 20 mg tablet 20 mg PO DAILY 01/31/23 [History Last Taken Unknown] carbidopa 25 mg-levodopa 250 mg tablet 1 tab PO TID 01/31/23 [History Last Taken Unknown] fludrocortisone 0.1 mg tablet 0.1 mg PO DAILY 01/31/23 [History Last Taken Unknown] mirtazapine 15 mg tablet 15 mg PO DAILY 01/31/23 [History Last Taken Unknown] potassium chloride 10 mEq tablet,extended release 10 meq PO DAILY 01/31/23 [History Last Taken Unknown] tamsulosin 0.4 mg capsule 0.4 mg PO DAILY 01/31/23 [History Last Taken Unknown] Allergy/AdvReac Type Severity Reaction Status Date / Time Penicillins Allergy PT UNABLE Verified 01/23/23 18:20 TO RESPOND-NEEDS F/U Family History Brother CAD (coronary artery disease) Surgical History History of implantable cardiac defibrillator (ICD) (02/19/19) Hx of appendectomy Hx of hernia repair Social History Smoking Status: Never smoker ROS ROS ED Review of Systems ROS Unobtainable: due to mental condition and due to mental status EXAM Physical Exam Const Vital Signs: 01/31/23 18:42 01/31/23 21:05 01/31/23 23:04 Temperature 99.6 F H Temperature Source Temporal Pulse Rate 72 78 88 Respiratory Rate 16 23 H 19 H Blood Pressure 125/63 H 138/80 H 121/82 H Blood Pressure Mean 83 99 95 Pulse Ox 94 98 98 Oxygen Delivery Method Room Air Room Air Room Air 01/31/23 23:21 Temperature 98 F Temperature Source Temporal Pulse Rate 86 Respiratory Rate 20 H Blood Pressure 121/82 H Blood Pressure Mean 95 Pulse Ox 96 Oxygen Delivery Method Room Air Positive well nourished General Appearance ED: NAD; Negative for pallor HEENT Reports TM's clear and moist mucous membranes HEENT Narrative: Bruising noted to the left supraorbital ridge normocephalic Tympanic Membrane ED: Yes TM's clear Eyes PERRL and EOMs intact bilaterally Neck no lymphadenopathy General: Negative for tenderness Resp normal respiratory effort and clear to auscultation bilaterally Auscultation: Negative for rales or rhonchi Cardio regular rate and regular rhythm GI GI Narrative: Tenderness palpation right flank and right lower abdomen. There is also tenderness in the right lumbar paraspinal musculature. Neuro CN's II-XII intact bilaterally Sensorium / Orientation: alert Psych mental status grossly normal and thought process normal Skin General Skin Exam: Negative for jaundice or pallor MDM MDM MDM Narrative Medical decision making narrative: Patient reportedly had a bloody bowel movement today. He is unable to tell me this. He is a poor informant. He does have bruising noted to the left forehead and pain in the right flank, abdomen, right back. We will obtain a CBC to assess white blood cell count, hemoglobin, platelets, differential. CMP to assess liver function, renal function, glucose, anion gap. PT/INR will be obtained to assess for coagulopathy. CT brain and cervical spine will be obtained to assess for head and neck injury as the patient is a poor informant. He also has right lower back/flank pain and does not know how he fell and there is concern he could have injured himself. Urinalysis to assess for UTI. Type and screen was obtained as well. CBC shows mild leukocytosis at 13.7. Hemoglobin appears to be stable at 8.6. We have no bleeding since he has been here in the ER. No visible hemorrhoids. INR within normal limits. Renal function and electrolytes unremarkable. Liver function is also normal. CT brain and cervical spine are negative. CT of the abdomen pelvis shows no spinal abnormalities but does show what concerning for cystitis. Patient's urinalysis is positive for infection today. He is given Rocephin IV. I spoke with Dr. Krause regarding the bleeding and he recommended admission and if he does not rebleed he may not need to be scoped but if he has more bleeding he will be. He recommended following hemoglobins. Patient admitted in stable condition. Impression: 1. UTI 2. Cephalhematoma 3. Falls 4. GI bleed Lab Data Attestation: I reviewed the patient's lab results. Labs: Laboratory Results - last 24 hr 01/31/23 01/31/23 01/31/23 19:13 19:13 19:13 WBC 13.7 H RBC 3.73 L Hgb 8.6 L Hct 29.6 L MCV 79.4 L MCH 23.1 L MCHC 29.1 L RDW Std Deviation 50.6 H RDW Coeff of Josue 17.6 H Plt Count 240 MPV 9.8 Immature Gran % (Auto) 1.100 H Neut % (Auto) 78.0 H Lymph % (Auto) 10.7 L Lamb % (Auto) 9.7 Eos % (Auto) 0.1 Baso % (Auto) 0.4 Absolute Neuts (auto) 10.7 H Absolute Lymphs (auto) 1.46 Nucleated RBC % 0 PT 17.9 H INR 1.5 Sodium 140 Potassium 3.4 L Chloride 106 Carbon Dioxide 24.0 Anion Gap 10 BUN 25 H Creatinine 0.84 Estim Creat Clear Calc 60.55 Est GFR (MDRD) Af Amer 112 Est GFR (MDRD) Non-Af 92 BUN/Creatinine Ratio 29.9 H Glucose 111 H Calcium 8.8 Total Bilirubin 0.70 AST 18 ALT 10 L Alkaline Phosphatase 34 L Troponin I High Sens 23 Total Protein 7.2 Albumin 2.5 L Globulin 4.7 H Albumin/Globulin Ratio 0.5 L Urine Color Urine Clarity Urine pH Ur Specific [place] Urine Protein Urine Glucose (UA) Urine Ketones Urine Occult Blood Urine Nitrite Urine Bilirubin Urine Urobilinogen Ur Leukocyte Esterase Urine RBC Urine WBC Ur Squamous Epith Cells Urine Bacteria Urine Mucus Blood Type Antibody Screen 01/31/23 01/31/23 19:13 21:00 WBC RBC Hgb Hct MCV MCH MCHC RDW Std Deviation RDW Coeff of Josue Plt Count MPV Immature Gran % (Auto) Neut % (Auto) Lymph % (Auto) Lamb % (Auto) Eos % (Auto) Baso % (Auto) Absolute Neuts (auto) Absolute Lymphs (auto) Nucleated RBC % PT INR Sodium Potassium Chloride Carbon Dioxide Anion Gap BUN Creatinine Estim Creat Clear Calc Est GFR (MDRD) Af Amer Est GFR (MDRD) Non-Af BUN/Creatinine Ratio Glucose Calcium Total Bilirubin AST ALT Alkaline Phosphatase Troponin I High Sens Total Protein Albumin Globulin Albumin/Globulin Ratio Urine Color Yellow Urine Clarity Cloudy Urine pH 5.0 Ur Specific [place] 1.020 Urine Protein 100 H Urine Glucose (UA) Normal Urine Ketones 15 H Urine Occult Blood 25 H Urine Nitrite Positive H Urine Bilirubin Negative Urine Urobilinogen 4 H Ur Leukocyte Esterase 500 H Urine RBC 0-5 SEEN Urine WBC >100 SEEN Ur Squamous Epith Cells 0 SEEN Urine Bacteria 2+ Urine Mucus 0 SEEN Blood Type A POSITIVE Antibody Screen NEGATIVE Radiography Diagnostic Testing: Clinical Impression(s) from Imaging Studies Abdomen/Pelvis CT 01/31/23 19:29 IMPRESSION: Abnormal bladder with a thickened wall and either intraluminal neoplasm and/or marked prostate enlargement extending into the bladder. Cystoscopy should be considered. Electronically Signed: Logan Morales MD at 20:54 EDT , Brain CT 01/31/23 19:29 IMPRESSION: Chronic involutional changes of the brain. No change or acute abnormality. Electronically Signed: Logan Morales MD at 20:41 EDT , Cervical Spine CT 01/31/23 19:29 IMPRESSION: There is no definite acute fracture/dislocation. Degenerative changes. Electronically Signed: Logan Morales MD at 20:47 EDT , Discharge Plan Triage Chief Complaint: GI Bleed ED Provider: Jose Luis Mercado Dx/Rx/DC Orders Prescriptions: No Action finasteride 5 mg tablet 5 mg PO QDAY Hold Instructions: Resume on 12/22/22. ropinirole 1 mg tablet 1 mg PO TID Label Comments: 1 MG, 1/2 Tablet PO TID Rx Instructions: 1 MG, 1/2 Tablet PO TID sertraline 100 MG tablet 100 mg PO DAILY Cholecalciferol (Vitamin D3) [Vitamin D3] 5,000 UNIT capsule 5,000 unit PO MO cephalexin [cephalexin] 500 mg capsule 500 mg PO Q6 Qty: 40 0RF oxycodone 5 mg tablet 5 mg PO Q8H PRN (Reason: pain) 4 Days Qty: 14 0RF (DME) walker See Rx Instructions .Route .MEDSUPPLY Qty: 1 0RF Rx Instructions: As directed atorvastatin 20 mg tablet 20 mg PO DAILY carbidopa-levodopa 25-250 mg tablet 1 tab PO TID Label Comments: take 1 tablet by mouth three times a day potassium chloride 10 mEq tablet extended release 10 meq PO DAILY tamsulosin 0.4 mg capsule 0.4 mg PO DAILY mirtazapine 15 mg tablet 15 mg PO DAILY fludrocortisone 0.1 mg tablet 0.1 mg PO DAILY carvedilol 6.25 mg tablet 6.25 mg PO BID Qty: 180 3RF Primary Care Provider: Claudia Schofield Referrals: Claudia Schofield MD [Primary Care Provider] -
[2023-01-31 19:38] LABS: ALB/GLOB Ratio 0.5 RATIO (0.9-2.4); AST(SGOT) 18 U/L (15-37); Alanine Aminotransfer ALT/SGPT 10 U/L (16-61); Albumin, Serum 2.5 g/dL (3.2-5.0); Alkaline Phosphatase 34 U/L (45-117); Anion Gap 10 (5-15); BUN 25 mg/dL (7-18); BUN/Creat Ratio 29.9 RATIO (10-20); Calcium,Total 8.8 mg/dL (8.5-10.1); Chloride 106 mmol/L (98-107); Creatinine, Serum 0.84 mg/dL (0.70-1.30); EST Glomerular Filtration Rate 92 mL/min (>60); Est Glom Filt Rate - Afr Amer 112 mL/min (>60); Estimated Creatinine Clearance 60.55 ml/min; Globulin 4.7 g/dL (2.2-4.2); Glucose 111 mg/dL (74-106); Potassium 3.4 mmol/L (3.5-5.1); Protein, Total 7.2 g/dL (6.4-8.2); Sodium Level 140 mmol/L (136-145); Troponin-I HS 23 pg/mL (3.0-78.0)
[2023-01-31 21:05] VITALS: BP 138/80; PULSE 78; RESP 23; O2SAT 98
[2023-01-31 21:06] LABS: Color, Urine Yellow (Yellow); Glucose, Dipstick Normal (Normal); Ketone-Dipstick 15 mg/dl (Negative); Leukocyte Esterase-Dipstick 500 /ul (Negative); Nitrite-Dipstick Positive (Negative); Occult Blood-Urine 25 /ul (Negative); Protein-Dipstick 100 mg/dl (Negative); Urine Bilirubin Dipstick Negative (Negative); Urine Clarity Cloudy (Clear); Urine Urobilinogen 4 mg/dl (Normal)
[2023-01-31 21:08] LABS: Mucous, Urine 0 SEEN /hpf (<or=2+); Squamous Epithelial Cells - UA 0 SEEN /hpf (0-5)
[2023-01-31 21:12] LABS: Bacteria 2+ /hpf (None Seen); Red Blood Cells-Urine 0-5 SEEN /hpf (0-5); White Blood Cells >100 SEEN /hpf (0-5)
[2023-01-31] MEDS: Ceftriaxone 1 GM/50 ML BAG IV (21:53)
[2023-01-31 23:04] VITALS: BP 121/82; PULSE 88; RESP 19; O2SAT 98
[2023-01-31 23:21] VITALS: BP 121/82; PULSE 86; RESP 20; TEMP 36.6; O2SAT 96
--- NOTE | 2023-01-31 23:24 | HP.PCM.HOS_ITS ---
HPI - General General Date of Admission: 01/31/23 Date of Service: 01/31/23 Chief Complaint: Hematochezia HPI Narrative RYAN SMALL, is a 87 M with a significant history of Parkinson disease who lives at [facility] presenting to the emergency department with hematochezia. History was obtained from patient's stepdaughter who was at the bedside as patient is a poor historian. As for was patient's step daughter is aware patient had only 1 episode of hematochezia on the same day of presentation. Also patient fell about a week before presentation and 2 days before presentation. He complains of back pain. Her stepdaughter who is the medical power of senior security architect reports that with the patient's fall a week ago he sustained a pelvis fracture. Patient was found to have abnormal urinalysis in emergency department. However he denies any urinary symptoms. [facility] Medical History Anxiety Benign prostate hyperplasia Dementia Essential (primary) hypertension Hyperlipidemia Hypertrophic cardiomyopathy Non-ischemic cardiomyopathy Syncope and collapse Tremor Ventricular tachycardia Home Medications finasteride 5 mg tablet 5 mg PO QDAY 02/18/18 [History Last Taken 02/12/19] ropinirole 1 mg tablet 1 mg PO TID 02/18/18 [History Last Taken 02/12/19] sertraline 100 mg tablet 100 mg PO DAILY 02/12/19 [History Last Taken Unknown] Cholecalciferol (Vitamin D3) [Vitamin D3] 5,000 unit PO MO 09/14/20 [History Last Taken Unknown] carvedilol 6.25 mg tablet 6.25 mg PO BID #180 tabs 07/04/22 [Rx Last Taken Unknown] oxycodone 5 mg tablet 5 mg PO Q8H PRN pain 4 days #14 tabs 01/23/23 [Rx Last Taken Unknown] walker #1 ea 01/23/23 [Rx Last Taken Unknown] atorvastatin 20 mg tablet 20 mg PO DAILY 01/31/23 [History Last Taken Unknown] carbidopa 25 mg-levodopa 250 mg tablet 1 tab PO TID 01/31/23 [History Last Taken Unknown] fludrocortisone 0.1 mg tablet 0.1 mg PO DAILY 01/31/23 [History Last Taken Unknown] mirtazapine 15 mg tablet 15 mg PO QHS appetite 01/31/23 [History Last Taken Unknown] potassium chloride 10 mEq tablet,extended release 10 meq PO DAILY 01/31/23 [His tory Last Taken Unknown] tamsulosin 0.4 mg capsule 0.4 mg PO DAILY 01/31/23 [History Last Taken Unknown] acetaminophen 650 mg tablet 650 mg PO Q4H PRN Pain 02/01/23 [History Last Taken Unknown] diphenhydramine 25 mg-acetaminophen 500 mg tablet (Tylenol PM Extra Strength) 2 tab PO QHS insomnia and pain 02/01/23 [History Last Taken Unknown] ferrous sulfate 325 mg (65 mg iron) tablet (iron) 325 mg PO DAILY anemia 02/01/23 [History Last Taken Unknown] Allergy/AdvReac Type Severity Reaction Status Date / Time Penicillins Allergy PT UNABLE Verified 01/23/23 18:20 TO RESPOND-NEEDS F/U Family History Brother CAD (coronary artery disease) Surgical History History of implantable cardiac defibrillator (ICD) (02/19/19) Hx of appendectomy Hx of hernia repair Social History Smoking Status: Never smoker ROS ROS Narrative Pertinent positives and pertinent negatives as noted in HPI. All other systems were reviewed and are negative Vital Signs Vital Signs Vital Signs: 01/31/23 18:42 01/31/23 21:05 01/31/23 23:04 Temperature 99.6 F H Temperature Source Temporal Pulse Rate 72 78 88 Respiratory Rate 16 23 H 19 H Blood Pressure 125/63 H 138/80 H 121/82 H Blood Pressure Mean 83 99 95 Pulse Ox 94 98 98 Oxygen Delivery Method Room Air Room Air Room Air 01/31/23 23:21 Temperature 98 F Temperature Source Temporal Pulse Rate 86 Respiratory Rate 20 H Blood Pressure 121/82 H Blood Pressure Mean 95 Pulse Ox 96 Oxygen Delivery Method Room Air Weight Weight: 69.1 kg Body Mass Index (BMI) 20.6 Physical Exam Narrative Physical exam: General: Well-nourished, well-developed. Head: Normocephalic, ecchymosis at left forehead Eyes: Vision is grossly intact. EOMI ENT, no trauma, moist mucous membranes, no rhinorrhea Neck: Nontender, No thyromegaly. CVS: Regular rate and rhythm. S1-S2 present. No murmur, gallop or rub. Respiratory : clear to auscultation bilaterally, chest wall nontender Abdomen: Soft, nontender, nondistended, normal bowel sounds, no masses : Deferred Back: Nontender, no CVA tenderness Extremities: Nontender full range of motion, no trauma Skin: Normal color, no trauma, abrasions Neuro: Alert, cranial nerves II through XII grossly intact. Tremors of bilateral hands. Psychiatry: Normal mood. Normal affect. Not depressed. Not anxious. Results Lab / Micro Data Result Diagrams: 01/31/23 19:13 01/31/23 19:13 Labs: Laboratory Results - last 24 hr 01/31/23 19:13: WBC 13.7 H, RBC 3.73 L, Hgb 8.6 L, Hct 29.6 L, MCV 79.4 L, MCH 23.1 L, MCHC 29.1 L, RDW Std Deviation 50.6 H, RDW Coeff of Josue 17.6 H, Plt Count 240, MPV 9.8, Immature Gran % (Auto) 1.100 H, Neut % (Auto) 78.0 H, Lymph % (Auto) 10.7 L, [place]ick % (Auto) 9.7, Eos % (Auto) 0.1, Baso % (Auto) 0.4, Absolute Neuts (auto) 10.7 H, Absolute Lymphs (auto) 1.46, Nucleated RBC % 0 01/31/23 19:13: PT 17.9 H, INR 1.5 01/31/23 19:13: Sodium 140, Potassium 3.4 L, Chloride 106, Carbon Dioxide 24.0, Anion Gap 10, BUN 25 H, Creatinine 0.84, Estim Creat Clear Calc 60.55, Est GFR (MDRD) Af Amer 112, Est GFR (MDRD) Non-Af 92, BUN/Creatinine Ratio 29.9 H, Glucose 111 H, Calcium 8.8, Total Bilirubin 0.70, AST 18, ALT 10 L, Alkaline Phosphatase 34 L, Troponin I High Sens 23, Total Protein 7.2, Albumin 2.5 L, Globulin 4.7 H, Albumin/Globulin Ratio 0.5 L 01/31/23 19:13: Blood Type A POSITIVE, Antibody Screen NEGATIVE 01/31/23 21:00: Urine Color Yellow, Urine Clarity Cloudy, Urine pH 5.0, Ur Specific [place] 1.020, Urine Protein 100 H, Urine Glucose (UA) Normal, Urine Ketones 15 H, Urine Occult Blood 25 H, Urine Nitrite Positive H, Urine Bilirubin Negative, Urine Urobilinogen 4 H, Ur Leukocyte Esterase 500 H, Urine RBC 0-5 SEEN, Urine WBC >100 SEEN, Ur Squamous Epith Cells 0 SEEN, Urine Bacteria 2+, Urine Mucus 0 SEEN Radiology Impression Abdomen/Pelvis CT 01/31/23 19:29 IMPRESSION: Abnormal bladder with a thickened wall and either intraluminal neoplasm and/or marked prostate enlargement extending into the bladder. Cystoscopy should be considered. Electronically Signed: Logan Morales MD at 20:54 EDT , Brain CT 01/31/23 19:29 IMPRESSION: Chronic involutional changes of the brain. No change or acute abnormality. Electronically Signed: Logan Morales MD at 20:41 EDT , Cervical Spine CT 01/31/23 19:29 IMPRESSION: There is no definite acute fracture/dislocation. Degenerative changes. Electronically Signed: Logan Morales MD at 20:47 EDT , Assessment & Plan Assessment/Plan (1) Hematochezia: (2) Fall: (3) Abnormal urinalysis: (4) UTI (urinary tract infection): (5) Essential (primary) hypertension: PLAN: Plan Acute GI [facility] Occult stools ordered. Hemoglobin on presentation was 8.6 and stable. Trend CBC and H&H. No anticoagulants for DVT prophylaxis Unclear whether upper or lower GI bleed. Likely lower GI bleed as BUN is within baseline. Protonix IV ordered. ED doctor discussed the case with gastroenterology who recommended that patient stays in the hospital. GI consult. Multiple falls Could be secondary to patient's Parkinson's disease. Cannot rule out contributing factor from possible UTI. Check vitamin D level. Cervical spine CT with degenerative changes. CT head with chronic changes. PT and OT to evaluate and treat. UTI Abdomen/pelvis CT?impression radiologist: Abnormal bladder with a thickened wall and either intraluminal neoplasm and/or marked prostate enlargement extending into the bladder. Cystoscopy should be considered. Abdomen/pelvis CT was visualized and independently interpreted and I agree with radiology interpretation. Urinalysis on presentation was abnormal. Although patient denies urinary s ymptoms with multiple falls will treat us as UTI. Received ceftriaxone emergency department and continued. Consider urology referral upon discharge or as appropriate. Hypertension Blood pressure is not within goal Home blood pressure medication continued. Trend blood pressure and adjust blood pressure medications. DVT prophylaxis SCDs ordered. Diagnosis: Per stepdaughter who was at the bedside she (Grace Milligan; she is the Medical Power of senior security architect. Telephone #[phone] (home); [phone] (cell phone). And Ananth Brooke ([phone]) is the general power of senior security architect. Charges/Coding Visit Charges Inpatient E&M: 02741 Init Hosp L3
[2023-02-01] VITALS (7 sets, daily range): BP systolic 125–150; BP diastolic 65–81; PULSE 68–78; RESP 18; TEMP 36.7–37.7; O2SAT 93–99
--- NOTE | 2023-02-01 00:11 | ED.RN ---
[facility], operated by [facility] updated on admission
[2023-02-01] MEDS: Carbidopa/Levodopa 25/250 Tablet PO ×3 (05:26→22:02)
[2023-02-01] MEDS: Potassium Chloride Oral Tablet 20 MEQ 40 MEQ PO (05:26)
[2023-02-01] MEDS: Pramipexole Di-HCl 0.25 MG Tablet PO ×3 (05:26→21:57)
[2023-02-01 06:17] LABS: Absolute Lymphocyte Count 1.48 X10^3/uL (0.83-4.51); Absolute Neutrophil Count 8.9 X10^3/uL (2.0-7.7); Basophil# 0.04 X10^3/uL; Basophil% 0.3 % (0-1); Eosinophil# 0.07 X10^3/uL; Eosinophils% 0.6 % (0-5); Hematocrit 29.1 % (40-54); Hemoglobin 8.4 g/dL (13.0-16.5); Lymphocyte # 1.48 X10^3/ul (0.83-4.51); Lymphocyte % 12.8 % (19-41); Mean Corp Hgb Conc 28.9 g/dL (32-36); Mean Corpuscular Volume 79.7 fL (80-94); Mean Platelet Vol. 9.6 fl (6.2-12.0); Monocyte# 0.94 X10^3/uL; Monocyte% 8.2 % (0-10); NRBC Flagged by Analyzer 0 % (0-5); Neutrophil # 8.92 X10^3/uL (2.7-7.7); Neutrophil % 77.5 % (47-70); Platelet Count 250 K/mm3 (150-450); RBC Distribution Width CV 17.5 % (11.6-14.6); RBC Distribution Width SD 50.7 fl (35.1-43.9); Red Blood Count 3.65 M/mm3 (4.6-6.2); White Blood Count 11.5 K/mm3 (4.4-11.0)
[2023-02-01 07:05] LABS: Anion Gap 6 (5-15); BUN 25 mg/dL (7-18); BUN/Creat Ratio 36.9 RATIO (10-20); Calcium,Total 8.5 mg/dL (8.5-10.1); Chloride 109 mmol/L (98-107); Creatinine, Serum 0.68 mg/dL (0.70-1.30); EST Glomerular Filtration Rate 118 mL/min (>60); Est Glom Filt Rate - Afr Amer 143 mL/min (>60); Estimated Creatinine Clearance 49.28 ml/min; Glucose 117 mg/dL (74-106); Potassium 3.7 mmol/L (3.5-5.1); Sodium Level 139 mmol/L (136-145)
[2023-02-01] MEDS: Tamsulosin HCl 0.4 MG Capsule PO (10:22)
[2023-02-01] MEDS: Carvedilol 6.25 MG Tablet PO ×2 (10:22→21:57)
[2023-02-01] MEDS: Finasteride 5 MG Tablet PO (10:22)
[2023-02-01] MEDS: Fludrocortisone Acetate 0.1 MG Tablet PO (10:22)
[2023-02-01] MEDS: Ceftriaxone 1 GM/50 ML BAG IV (10:23)
--- NOTE | 2023-02-01 10:29 | PN.HOSP_ITS ---
Reason for Visit Reason for Visit: Diagnoses Essential (primary) hypertension (01/31/23) Melena (01/31/23) Urinary tract infection, site not specified (01/31/23) Unspecified abnormal findings in urine (01/31/23) Unspecified fall, initial encounter (01/31/23) Subjective Subjective No further bowel movements or blood in stool had been endorsed, discussed with patient with stepdaughter at bedside. Main complaint is some right-sided rib pain. Objective Data Objective Data Vital Signs: Vital Signs Temp Pulse Resp BP Pulse Ox O2 Del Method 99.8 F H 78 18 150/81 H 94 Room Air 02/01/23 01:33 02/01/23 01:33 02/01/23 01:33 02/01/23 01:33 02/01/23 01:33 02/01/23 01:33 Oxygen Delivery Method Room Air Weight: 66.95 kg Body Mass Index (BMI) 20.0 Intake & Output: Intake and Output for Last 24 Hours 01/30/23 01/31/23 02/01/23 23:59 23:59 23:59 Intake Total 50 / 50 Output Total 250 / 250 Balance 50 / 50 -250 / -250 Lab / Micro Data Result Diagrams: 02/01/23 11:55 02/01/23 06:08 Labs: Laboratory Results - last 24 hr 01/31/23 19:13: WBC 13.7 H, RBC 3.73 L, Hgb 8.6 L, Hct 29.6 L, MCV 79.4 L, MCH 23.1 L, MCHC 29.1 L, RDW Std Deviation 50.6 H, RDW Coeff of Josue 17.6 H, Plt Count 240, MPV 9.8, Immature Gran % (Auto) 1.100 H, Neut % (Auto) 78.0 H, Lymph % (Auto) 10.7 L, [place] % (Auto) 9.7, Eos % (Auto) 0.1, Baso % (Auto) 0.4, Absolute Neuts (auto) 10.7 H, Absolute Lymphs (auto) 1.46, Nucleated RBC % 0 01/31/23 19:13: PT 17.9 H, INR 1.5 01/31/23 19:13: Sodium 140, Potassium 3.4 L, Chloride 106, Carbon Dioxide 24.0, Anion Gap 10, BUN 25 H, Creatinine 0.84, Estim Creat Clear Calc 60.55, Est GFR (MDRD) Af Amer 112, Est GFR (MDRD) Non-Af 92, BUN/Creatinine Ratio 29.9 H, Glucose 111 H, Calcium 8.8, Total Bilirubin 0.70, AST 18, ALT 10 L, Alkaline Phosphatase 34 L, Troponin I High Sens 23, Total Protein 7.2, Albumin 2.5 L, Globulin 4.7 H, Albumin/Globulin Ratio 0.5 L 01/31/23 19:13: Blood Type A POSITIVE, Antibody Screen NEGATIVE 01/31/23 21:00: Urine Color Yellow, Urine Clarity Cloudy, Urine pH 5.0, Ur Specific [place] 1.020, Urine Protein 100 H, Urine Glucose (UA) Normal, Urine Ketones 15 H, Urine Occult Blood 25 H, Urine Nitrite Positive H, Urine Bilirubin Negative, Urine Urobilinogen 4 H, Ur Leukocyte Esterase 500 H, Urine RBC 0-5 SEEN, Urine WBC >100 SEEN, Ur Squamous Epith Cells 0 SEEN, Urine Bacteria 2+, Urine Mucus 0 SEEN 02/01/23 06:08: WBC 11.5 H, RBC 3.65 L, Hgb 8.4 L, Hct 29.1 L, MCV 79.7 L, MCH 23.0 L, MCHC 28.9 L, RDW Std Deviation 50.7 H, RDW Coeff of Josue 17.5 H, Plt Count 250, MPV 9.6, Immature Gran % (Auto) 0.600, Neut % (Auto) 77.5 H, Lymph % (Auto) 12.8 L, [place] % (Auto) 8.2, Eos % (Auto) 0.6, Baso % (Auto) 0.3, Absolute Neuts (auto) 8.9 H, Absolute Lymphs (auto) 1.48, Nucleated RBC % 0 02/01/23 06:08: Sodium 139, Potassium 3.7, Chloride 109 H, Carbon Dioxide 24.0, Anion Gap 6, BUN 25 H, Creatinine 0.68 L, Estim Creat Clear Calc 49.28, Est GFR (MDRD) Af Amer 143, Est GFR (MDRD) Non-Af 118, BUN/Creatinine Ratio 36.9 H, Glucose 117 H, Calcium 8.5 02/01/23 06:08: Vitamin D 25-Hydroxy 44.0 Radiography Diagnostic Testing: Radiology Impression Abdomen/Pelvis CT 01/31/23 19:29 IMPRESSION: Abnormal bladder with a thickened wall and either intraluminal neoplasm and/or marked prostate enlargement extending into the bladder. Cystoscopy should be considered. Electronically Signed: Logan Morales MD at 20:54 EDT , Brain CT 01/31/23 19:29 IMPRESSION: Chronic involutional changes of the brain. No change or acute abnormality. Electronically Signed: Logan Morales MD at 20:41 EDT , Cervical Spine CT 01/31/23 19:29 IMPRESSION: There is no definite acute fracture/dislocation. Degenerative changes. Electronically Signed: Logan Morales MD at 20:47 EDT , Physical Exam Narrative General: Alert, no acute distress HEENT: Atraumatic, normocephalic Eyes: Anicteric, extraocular movements grossly intact Neck: Supple Respiratory: Clear to auscultation bilaterally, normal respiratory effort Cardiovascular: Regular rate and rhythm GI: Soft, nontender, nondistended Extremities: No edema Musculoskeletal: Moving all extremities, has rolling tremor on right side. Has some pain on palpation of right lower chest wall Neuro: No overt focal neurological deficits Skin: No rashes appreciated Psych: Cooperative Assessment & Plan Assessment/Plan (1) Hematochezia: (2) Fall: (3) Abnormal urinalysis: (4) UTI (urinary tract infection): (5) Essential (primary) hypertension: PLAN: Plan #Hematochezia -Reportedly had hematochezia mcc and occult stools were ordered -Hemoglobin was 8.6 and stable on admission -We will avoid pharmacologic DVT prophylaxis -IV PPI ordered -GI consulted -02/01: Did not have any bowel movements overnight, hemoglobin at this time is stable. Awaiting GI input that may not need endoscopy #multiple falls/Nondisplaced fractures of the superior left acetabulum and anterior left iliac bone with extension into the superior pubic ramus one week ago -PT/OT -Per ED note 01/23 Dr. Falcon was contacted about fracture and recommended supportive care and weightbearing as tolerated -Was reporting right rib pain, given multiple falls will check x-ray and p rescribe lidocaine patch #Urinary tract infection/thickened bladder wall and enlargement near prostate extending into bladder -Abdomen/pelvis CT in ED: Abnormal bladder with a thickened wall and either intraluminal neoplasm and/or marked prostate enlargement extending into the bladder and cystoscopy should be considered -Can be referred to urology upon discharge if he would like to pursue further work-up and potential intervention -Continue Rocephin -Follow urine culture -Continue tamsulosin and Sinemet -02/01: Discussed prostate in scan with patient and stepdaughter at bedside and they report he follows with urology for his prostate most recently 1 month ago. Can follow-up with urologist upon discharge. Continue Rocephin #Parkinson's disease -Continue Sinemet -Continue ropinirole #Hypertension -Continue Coreg #History of nonischemic cardiomyopathy with pacemaker/AICD 02/19/2019 -Pacemaker routinely monitored on an outpatient basis #DVT ppx: SCDs Krissy Bryson MD Time spent in the patient's overall evaluation,decision-making process, review of diagnostic data, adjustment of management, discussion with other providers, nursing nursing and ancillary staff involved in patient's care documentation, 30 minutes Charges/Coding Visit Charges Inpatient E&M: 39324 Subs Hosp L2
[2023-02-01 12:06] LABS: Hematocrit 30.1 % (40-54); Hemoglobin 8.6 g/dL (13.0-16.5)
--- NOTE | 2023-02-01 12:53 | CASEMGMT ---
Social Work Pt is admitted from [facility]. NIKOLAY met with pt and Grace Milligan pts step daughter. Grace states pt is currently private pay at [facility] and the plans are for pt to return at time of discharge. NIKOLAY spoke with PT who is recommending pt return at skilled level of care. norma Arriaga expanded duty dental assistant notified and to submit referral to [facility] for return. Plan: [facility], pending CALDERON Bond
--- NOTE | 2023-02-01 13:00 | RAD_ITS ---
HISTORY fall, concern for right lower lateral rib fracture. TECHNIQUE: XR Ribs Unilateral Min 2 Views. COMPARISON: Chest 09/29/2022. FINDINGS: BONES : Nondisplaced posterior right 11th rib fracture Nondisplaced right L2 transverse process fracture. SOFT TISSUES: Cardiac pacemaker noted. Gaseous and stool distention of the colon. Mild atelectasis in the lung bases RAD/Ribs Unil 2V No CXR IMPRESSION: Nondisplaced fractures of the right 11th rib and right L2 transverse process. Electronically Signed: Janina Pérez MD at 13:18 EDT ,
--- NOTE | 2023-02-01 13:03 | CASEMGMT ---
Discharge Planning Return referral sent to [facility]. Inquired if they could take back private pay over the weekend if pre-cert isn't obtained by them. Awaiting response. Corina Guevara
--- NOTE | 2023-02-01 13:07 | CASEMGMT ---
Discharge Planning [facility] is willing to accept patient back prior to receiving pre-cert. SW notified. Corina Guevara
[2023-02-01] MEDS: Sertraline 100 MG Tablet PO (14:25)
[2023-02-01] MEDS: Ensure Plus High Protein 120 ML LIQUID PO ×2 (14:25→21:58)
[2023-02-01] MEDS: Lidocaine 5% Patch 1 PATCH TOPICAL (14:28)
[2023-02-01 15:42] LABS: Hematocrit 31.7 % (40-54); Hemoglobin 8.8 g/dL (13.0-16.5)
[2023-02-01 19:51] LABS: Hematocrit 29.1 % (40-54); Hemoglobin 8.2 g/dL (13.0-16.5)
[2023-02-01] MEDS: Mirtazapine 15 MG Tablet PO (21:57)
[2023-02-01] MEDS: 0.9% Saline Lock 10 ML Syringe IV (21:58)
[2023-02-02 02:18] VITALS: BP 120/87; PULSE 63; RESP 18; TEMP 36.3; O2SAT 96
[2023-02-02] MEDS: Carbidopa/Levodopa 25/250 Tablet PO ×2 (06:05→13:08)
[2023-02-02] MEDS: Pramipexole Di-HCl 0.25 MG Tablet PO ×2 (06:06→13:08)
--- NOTE | 2023-02-02 07:14 | PCM.PN.HOSP ---
Reason for Visit Reason for Visit: Diagnoses Essential (primary) hypertension (01/31/23) Melena (01/31/23) Urinary tract infection, site not specified (01/31/23) Unspecified abnormal findings in urine (01/31/23) Unspecified fall, initial encounter (01/31/23) Objective Data Objective Data Vital Signs: Vital Signs Temp Pulse Resp BP Pulse Ox O2 Del Method 97.3 F L 63 18 120/87 H 96 Room Air 02/02/23 02:18 02/02/23 02:18 02/02/23 02:18 02/02/23 02:18 02/02/23 02:18 02/02/23 02:18 Oxygen Delivery Method Room Air Weight: 66.95 kg Body Mass Index (BMI) 20.0 Intake & Output: Intake and Output for Last 24 Hours 01/31/23 02/01/23 02/02/23 23:59 23:59 23:59 Intake Total 50 / 50 1498 / 1498 300 / 300 Output Total 800 / 800 600 / 600 Balance 50 / 50 698 / 698 -300 / -300 Medical Nutrition Assessment Dietitian: Malnutrition Criteria Met Start: 02/01/23 14:07 Freq: Status: Active Protocol: Document 02/01/23 14:07 LO (Rec: 02/01/23 14:07 [id number]) Nutrition Malnutrition Evidence of Malnutrition Exists Yes Malnutrition (severe): Chronic Evidenced By Suboptimal Energy Intake ( Severe),Weight Loss (Severe), Physical Changes (Severe) Clinical Problem Chronic Disease or Condition Related Malnutrition Etiology related to suboptimal appetite and declining health Signs/Symptoms as evidenced by 14.9lbs (9.1%) weight loss in ~2 months, <75 % PO intake of estimated energy needs, and severe fat/ muscle loss to oriental orthodox, orbital , and clavicle. Status Active Problem Recommendation Dietitian Recommendations/Changes Continue Regular diet, soft and bite sized to optimize oral intakes. RD will add EPHP 4x with medpass instead of with meals to promote adequate PO intakes at meals. Lab / Micro Data Result Diagrams: 02/01/23 19:40 02/01/23 06:08 Labs: Laboratory Results - last 24 hr 02/01/23 06:08: Vitamin D 25-Hydroxy 44.0 02/01/23 11:55: Hgb 8.6 L, Hct 30.1 L 02/01/23 15:30: Hgb 8.8 L, Hct 31.7 L 02/01/23 19:40: Hgb 8.2 L, Hct 29.1 L Assessment & Plan Assessment/Plan (1) Hematochezia: (2) Fall: (3) Abnormal urinalysis: (4) UTI (urinary tract infection): (5) Essential (primary) hypertension: PLAN: Plan #Hematochezia -Reportedly had hematochezia fpc and occult stools were ordered -Hemoglobin was 8.6 and stable on admission -We will avoid pharmacologic DVT prophylaxis -IV PPI ordered -GI consulted -02/01: Did not have any bowel movements overnight, hemoglobin at this time is stable. Awaiting GI input that may not need endoscopy -02/02: Hemoglobin has been stable. #multiple falls/Nondisplaced fractures of the superior left acetabulum and anterior left iliac bone with extension into the superior pubic ramus one week ago -PT/OT -Per ED note 01/23 Dr. Falcon was contacted about fracture and recommended supportive care and weightbearing as tolerated -Was reporting right rib pain, given multiple falls will check x-ray and prescribe lidocaine patch -02/02: Continue lidocaine patch and pain control #Urinary tract infection/thickened bladder wall and enlargement near prostate extending into bladder -Abdomen/pelvis CT in ED: Abnormal bladder with a thickened wall and either intraluminal neoplasm and/or marked prostate enlargement extending into the bladder and cystoscopy should be considered -Can be referred to urology upon discharge if he would like to pursue further work-up and potential intervention -Continue Rocephin -Follow urine culture -Continue tamsulosin and Sinemet -02/01: Discussed prostate in scan with patient and stepdaughter at bedside and they report he follows with urology for his prostate most recently 1 month ago. Can follow-up with urologist upon discharge. Continue Rocephin -02/02: Doing well on Rocephin, urine culture pending that was obtained after antibiotics were started so likely low yield unless its not covered by Rocephin #Parkinson's disease -Continue Sinemet -Continue ropinirole #Hypertension -Continue Coreg #History of nonischemic cardiomyopathy with pacemaker/AICD 02/19/2019 -Pacemaker routinely monitored on an outpatient basis #DVT ppx: SCDs Krissy Bryson MD Time spent in the patient's overall evaluation,decision-making process, review of diagnostic data, adjustment of management, discussion with other providers, nursing nursing and ancillary staff involved in patient's care documentation, 30 minutes
[2023-02-02 07:45] LABS: Absolute Lymphocyte Count 1.12 X10^3/uL (0.83-4.51); Absolute Neutrophil Count 3.8 X10^3/uL (2.0-7.7); Basophil# 0.02 X10^3/uL; Basophil% 0.3 % (0-1); Eosinophil# 0.17 X10^3/uL; Eosinophils% 2.9 % (0-5); Hematocrit 29.1 % (40-54); Hemoglobin 8.3 g/dL (13.0-16.5); Lymphocyte # 1.12 X10^3/ul (0.83-4.51); Lymphocyte % 19.3 % (19-41); Mean Corp Hgb Conc 28.5 g/dL (32-36); Mean Corpuscular Volume 80.6 fL (80-94); Mean Platelet Vol. 10.4 fl (6.2-12.0); Monocyte# 0.64 X10^3/uL; NRBC Flagged by Analyzer 0 % (0-5); Neutrophil # 3.84 X10^3/uL (2.7-7.7); Neutrophil % 66.2 % (47-70); Platelet Count 242 K/mm3 (150-450); RBC Distribution Width CV 17.8 % (11.6-14.6); RBC Distribution Width SD 51.7 fl (35.1-43.9); Red Blood Count 3.61 M/mm3 (4.6-6.2); White Blood Count 5.8 K/mm3 (4.4-11.0)
[2023-02-02 08:15] VITALS: BP 103/60; PULSE 78; RESP 16; TEMP 36.7; O2SAT 97
[2023-02-02 08:50] LABS: Anion Gap 7 (5-15); BUN 21 mg/dL (7-18); BUN/Creat Ratio 33.5 RATIO (10-20); Calcium,Total 8.6 mg/dL (8.5-10.1); Chloride 110 mmol/L (98-107); Creatinine, Serum 0.63 mg/dL (0.70-1.30); EST Glomerular Filtration Rate 129 mL/min (>60); Est Glom Filt Rate - Afr Amer 156 mL/min (>60); Estimated Creatinine Clearance 49.28 ml/min; Glucose 110 mg/dL (74-106); Potassium 3.6 mmol/L (3.5-5.1); Sodium Level 140 mmol/L (136-145)
[2023-02-02] MEDS: Ferrous Sulfate 325 MG Tablet PO (09:11)
[2023-02-02] MEDS: Fludrocortisone Acetate 0.1 MG Tablet PO (09:11)
[2023-02-02] MEDS: Carvedilol 6.25 MG Tablet PO (09:12)
[2023-02-02] MEDS: Lidocaine 5% Patch 1 PATCH TOPICAL (09:12)
[2023-02-02] MEDS: Atorvastatin Calcium 20 MG Tablet PO (09:12)
[2023-02-02] MEDS: Sertraline 100 MG Tablet PO (09:13)
[2023-02-02] MEDS: Tamsulosin HCl 0.4 MG Capsule PO (09:13)
[2023-02-02] MEDS: Finasteride 5 MG Tablet PO (09:14)
[2023-02-02] MEDS: Potassium Chloride Oral Tablet 10 MEQ PO (09:15)
[2023-02-02] MEDS: Ensure Plus High Protein 120 ML LIQUID PO ×3 (09:16→17:38)
[2023-02-02] MEDS: Ceftriaxone 1 GM/50 ML BAG IV (09:28)
[2023-02-02 10:00] VITALS: BP 103/60; PULSE 78; RESP 16; TEMP 36.7; O2SAT 97
[2023-02-02 10:20] VITALS: O2SAT 95
--- NOTE | 2023-02-02 15:17 | PCM.TXEXTCAR ---
Diet Diet Order/Speech Therapy: 02/01/23 10:43 Diet: Regular - General Food consistency:: Soft & Bite Sized Is pt able to select menu?: No Routine Orders/Code Status Suppository Type: Dulcolax 10mg Suppository Frequency: Daily PRN Routine Lab Work: CBC (2-3 days) Code Status: Full Code Wound(s) BUE: Wound Type: Abrasion RT POST FOREARM: Wound Type: Skin Tear RT ELBOW: Wound Type: Skin Tear Therapies Physical Therapy: Eval and Treat Occupational Therapy: Eval and Treat Problem/Diagnosis (1) Hematochezia: Status: Acute Code(s): K92.1 - Melena (2) Fall: Status: Acute Code(s): W19.XXXA - Unspecified fall, initial encounter (3) UTI (urinary tract infection): Status: Acute Code(s): N39.0 - Urinary tract infection, site not specified (4) Essential (primary) hypertension: Status: Chronic Code(s): I10 - Essential (primary) hypertension Plan 87-year-old male significant history of Parkinson's disease, dementia, BPH, nonischemic cardiomyopathy presented to [facility] 02/02 from [facility] with hematochezia. Reportedly he had 1 episode with blood that filled the toilet bowl at the [facility] and was brought in. Of note he also fell a week before presentation and 2 days before presentation. The week before presentation CT demonstrated nondisplaced fractures of the superior left acetabulum and anterior left iliac bone with extension into the suprapubic ramus. Dr. Falcon was contacted in the ED at that time and recommended supportive care and weightbearing as tolerated. Hospitalist consulted for admission for hematochezia. Hemoglobin is 8.6 and stable on admission, IV PPI was ordered and GI contacted in the ED and he reported if he had no further bleeding may not be necessary to perform endoscopy or colonoscopy but he recommended hospitalization for monitoring for further bleeding. Patient had no bleeding or bowel movements first day and was doing well. Main complaint was right-sided rib pain that was tender to palpation but had no other complaints. His hemoglobin and vital signs were stable but overnight 02/01 and 02/02 he had 1 small hard bowel movement and had some bright red flecked on the outside with nothing mixed in, no significant bleeding or blood in the toilet bowl, no dark stool and it did not recur. Given description with overall stability and constipation suspect that this is hemorrhoidal in nature. 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 Ultimately given his stability and age with his medical comorbidities they would prefer, and he also concurred, for him to return to the care center with rechecking hemoglobin in 2 to 3 days and returning if any further problems though do not have high suspicion of active or significant GI bleed. In regards to his rib pain he had a rib x-ray which showed nondisplaced fractures of right 11th rib and right L2 transverse process. Touch base with Ortho who advised supportive care and symptom management. He is feeling much better on the day of discharge. 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 No further complaints on the day of discharge. discharge instructions as followed: DISCHARGE INSTRUCTIONS PLEASE READ *Please take this with you to your next doctors appointment* -You are found to have a urinary tract infection and will be discharged on ciprofloxacin 500 mg twice daily for 5 more days starting tomorrow. Your final urine culture is pending however given your clinical improvement do not feel the need to remain in the hospital for final results and this can be followed upon discharge -Would advise lidocaine patches and topicals for pain relief and avoid opioids if at all possible, will be sent with a prescription for a 5% lidocaine patch to put over your broken rib on the right side -You have can follow-up with orthopedic surgery in the office for your right L2 transverse process nondisplaced fracture in 2 weeks if needed, contact information provided -Would recommend lab work (CBC) to check your blood counts in 2 to 3 days -Your blood counts were stable here and you only had 1 small bowel movement with flecks of red blood on top of your stool that seemed consistent with possible hemorrhoids without GI hemorrhage and no dark blood or significant bleeding. Given that with your stable labs and vital signs, discussed with you, your son, and your daughter and ultimately all decided that given your stability and lack of significant bleeding risks of a procedure and further hospitalization outweighed benefits at this time. If you have any further significant bleeding or drops in your blood counts or abnormal vital signs please return to the hospital. -Would recommend using a stool softener routinely to avoid constipation -You will be discharged on pantoprazole 40 mg twice daily, if no further bleeding can decrease to once daily in 4-8 weeks -Additionally CT scan showed either marked prostate enlargement into the bladder or potential intraluminal neoplasm and recommended considering cystoscopy in the future. Please follow-up with your urologist upon discharge for further discussion if this is something you would like to pursue -Please call your primary care provider's office upon discharge to schedule a hospital follow up within 1 week. -For any concerning signs or symptoms please call 911 or proceed to the nearest emergency department Allergies/Procedures Done in Hospital Allergies Penicillins Allergy (Verified 01/23/23 18:20) PT UNABLE TO RESPOND-NEEDS F/U Type of Care/Length of Stay Estimated LOS: Convalescent Care Less Than 30 days Type of Care Needed: Skilled Rehab Potential: Fair Prognosis: Fair Additional Orders/Day of Discharge Day of Discharge: 02/02/23 Dietary and Speech Recommendations Dietitian Recommendations/Changes: Continue Regular diet, soft and bite sized to optimize oral intakes. RD will add EPHP 4x with medpass instead of with meals to promote adequate PO intakes at meals. Discharge Plan Admission Admit Date/Time: 01/31/23 23:09 Primary Reason for Your Visit: Hematochezia Attending Provider: Krissy Bryson Primary Care Provider: Claudia Schofield Consulting Providers: Mat Garcia ; FriendMyron Instructions Patient Instructions: ED Mechanical Fall, ED Fall Prevention Additional Instructions / Restrictions: DISCHARGE INSTRUCTIONS PLEASE READ *Please take this with you to your next doctors appointment* -You are found to have a urinary tract infection and will be discharged on ciprofloxacin 500 mg twice daily for 5 more days starting tomorrow. Your final urine culture is pending however given your clinical improvement do not feel the need to remain in the hospital for final results and this can be followed upon discharge -Would advise lidocaine patches and topicals for pain relief and avoid opioids if at all possible, will be sent with a prescription for a 5% lidocaine patch to put over your broken rib on the right side -You have can follow-up with orthopedic surgery in the office for your right L2 transverse process nondisplaced fracture in 2 weeks if needed, contact information provided -Would recommend lab work (CBC) to check your blood counts in 2 to 3 days -Your blood counts were stable here and you only had 1 small bowel movement with flecks of red blood on top of your stool that seemed consistent with possible hemorrhoids without GI hemorrhage and no dark blood or significant bleeding. Given that with your stable labs and vital signs, discussed with you, your son, and your daughter and ultimately all decided that given your stability and lack of significant bleeding risks of a procedure and further hospitalization outweighed benefits at this time. If you have any further significant bleeding or drops in your blood counts or abnormal vital signs please return to the hospital. -Would recommend using a stool softener routinely to avoid constipation -You will be discharged on pantoprazole 40 mg twice daily, if no further bleeding can decrease to once daily in 4-8 weeks -Additionally CT scan showed either marked prostate enlargement into the bladder or potential intraluminal neoplasm and recommended considering cystoscopy in the future. Please follow-up with your urologist upon discharge for further discussion if this is something you would like to pursue -Please call your primary care provider's office upon discharge to schedule a hospital follow up within 1 week. -For any concerning signs or symptoms please call 911 or proceed to the nearest emergency department Discharge Orders/Prescriptions Prescriptions: New ciprofloxacin HCl 500 mg tablet 500 mg PO BID 5 Days Qty: 10 0RF pantoprazole [Protonix] 40 mg tablet,delayed release (DR/EC) 40 mg PO BID 30 Days Qty: 60 0RF lidocaine 5 % Adhesive Patch,Medicated 1 patch topical DAILY 30 Days Qty: 15 0RF Protocol: *Topical Application Instructions APPLICATION INSTRUCTIONS: R sided rib/chest wall Continued finasteride 5 mg tablet 5 mg PO QDAY Hold Instructions: Resume on 12/22/22. sertraline 100 MG tablet 100 mg PO DAILY Cholecalciferol (Vitamin D3) [Vitamin D3] 5,000 UNIT capsule 5,000 unit PO MO (DME) walker See Rx Instructions .Route .MEDSUPPLY Qty: 1 0RF Rx Instructions: As directed atorvastatin 20 mg tablet 20 mg PO DAILY carbidopa-levodopa 25-250 mg tablet 1 tab PO TID Label Comments: take 1 tablet by mouth three times a day potassium chloride 10 mEq tablet extended release 10 meq PO DAILY tamsulosin 0.4 mg capsule 0.4 mg PO DAILY mirtazapine 15 mg tablet 15 mg PO QHS fludrocortisone 0.1 mg tablet 0.1 mg PO DAILY acetaminophen 650 mg Tablet 650 mg PO Q4H PRN (Reason: Pain) ferrous sulfate [iron] 325 mg (65 mg iron) Tablet 325 mg PO DAILY carvedilol 6.25 mg tablet 6.25 mg PO BID Qty: 180 3RF Changed ropinirole 1 mg tablet 0.5 mg PO TID 30 Days Qty: 0 0RF Label Comments: 1 MG, 1/2 Tablet PO TID Rx Instructions: 1 MG, 1/2 Tablet PO TID Discontinued oxycodone 5 mg tablet 5 mg PO Q8H PRN (Reason: pain) 4 Days Qty: 14 0RF diphenhydramine-acetaminophen [Tylenol PM Extra Strength] 25-500 mg Tablet 2 tab PO QHS Referrals / Follow Up: Claudia Schofield MD [Primary Care Provider] - Within 1 Week Steffen Pandey DO [Med Staff - Active Staff] - See Referral Note (You can follow-up for your right L2 transverse process nondisplaced fracture weeks if needed with Ortho) Disposition Disposition (needs filled in before D/C Order can be placed): Long Term Facility
--- NOTE | 2023-02-02 15:30 | PCM.DC.SUM ---
Providers Date of Admission: 01/31/23 Date of Discharge: 02/02/23 Primary Care Physician: Dr. Claudia Schofield MD Consultations 02/01/23 06:15 Consult: Gastroenterology Routine Consulting Provider: JimiMyron Reason for Consult: Hematochezia EMERGENT Consult: No MD Notified: Yes Date Notified: 02/01/23 Time Notified: 06:15 Method of Notification: Text Method of Consult:: In-Person Reason For Visit: UTI,MULTIPLE FALLS, HEMATOCHEZIA Diagnosis Discharge Diagnosis (1) Hematochezia: Status: Acute Code(s): K92.1 - Melena (2) Fall: Status: Acute Code(s): W19.XXXA - Unspecified fall, initial encounter (3) UTI (urinary tract infection): Status: Acute Code(s): N39.0 - Urinary tract infection, site not specified (4) Essential (primary) hypertension: Status: Chronic Code(s): I10 - Essential (primary) hypertension Plan #Hematochezia #Nondisplaced fractures of the right 11th rib and right L2 transverse process #multiple falls/Nondisplaced fractures of the superior left acetabulum and anterior left iliac bone with extension into the superior pubic ramus one week ago #Urinary tract infection/thickened bladder wall and enlargement near prostate extending into bladder #Parkinson's disease #Hypertension #History of nonischemic cardiomyopathy with pacemaker/AICD 02/19/2019 Medications at Discharge Home Medications finasteride 5 mg tablet 5 mg PO QDAY 02/18/18 sertraline 100 mg tablet 100 mg PO DAILY 02/12/19 Cholecalciferol (Vitamin D3) [Vitamin D3] 5,000 unit PO MO 09/14/20 carvedilol 6.25 mg tablet 6.25 mg PO BID #180 tabs 07/04/22 walker #1 ea 01/23/23 atorvastatin 20 mg tablet 20 mg PO DAILY 01/31/23 carbidopa 25 mg-levodopa 250 mg tablet 1 tab PO TID 01/31/23 fludrocortisone 0.1 mg tablet 0.1 mg PO DAILY 01/31/23 mirtazapine 15 mg tablet 15 mg PO QHS appetite 01/31/23 potassium chloride 10 mEq tablet,extended release 10 meq PO DAILY 01/31/23 tamsulosin 0.4 mg capsule 0.4 mg PO DAILY 01/31/23 acetaminophen 650 mg tablet 650 mg PO Q4H PRN Pain 02/01/23 ferrous sulfate 325 mg (65 mg iron) tablet (iron) 325 mg PO DAILY anemia 02/01/23 ciprofloxacin HCl 500 mg tablet 500 mg PO BID 5 days #10 tabs 02/02/23 lidocaine 5 % topical patch 1 patch topical DAILY 30 days #15 ea 02/02/23 pantoprazole 40 mg tablet,delayed release (Protonix) 40 mg PO BID 30 days #60 tabs 02/02/23 ropinirole 1 mg tablet 0.5 mg PO TID 30 days #0 tabs 02/02/23 Hospital Course Summary of Care Provided Minutes Spent on Discharge: 35 Hospital Course: 87-year-old male significant history of Parkinson's disease, dementia, BPH, nonischemic cardiomyopathy presented to [facility] 02/02 from [facility] with hematochezia. Reportedly he had 1 episode with blood that filled the toilet bowl at the [facility] and was brought in. Of note he also fell a week before presentation and 2 days before presentation. The week before presentation CT demonstrated nondisplaced fractures of the superior left acetabulum and anterior left iliac bone with extension into the suprapubic ramus. Dr. Falcon was contacted in the ED at that time and recommended supportive care and weightbearing as tolerated. Hospitalist consulted for admission for hematochezia. Hemoglobin is 8.6 and stable on admission, IV PPI was ordered and GI contacted in the ED and he reported if he had no further bleeding may not be necessary to perform endoscopy or colonoscopy but he recommended hospitalization for monitoring for further bleeding. Patient had no bleeding or bowel movements first day and was doing well. Main complaint was right-sided rib pain that was tender to palpation but had no other complaints. His hemoglobin and vital signs were stable but overnight 02/01 and 02/02 he had 1 small hard bowel movement and had some bright red flecked on the outside with nothing mixed in, no significant bleeding or blood in the toilet bowl, no dark stool and it did not recur. Given description with overall stability and constipation suspect that this is hemorrhoidal in nature. 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 Ultimately given his stability and age with his medical comorbidities they would prefer, and he also concurred, for him to return to the care center with rechecking hemoglobin in 2 to 3 days and returning if any further problems though do not have high suspicion of active or significant GI bleed. In regards to his rib pain he had a rib x-ray which showed nondisplaced fractures of right 11th rib and right L2 transverse process. Touch base with Ortho who advised supportive care and symptom management. He is feeling much better on the day of discharge. In the ED he had UA suggestive of UTI and was started on Rocephin, he was doing well and on day of discharge cultures were growing gram-negative lactose corrections officer, given his improvement do not feel he needs to remain hospitalized while awaiting sensitivities and will transition to Cipro. No further complaints on the day of discharge. discharge instructions as followed: DISCHARGE INSTRUCTIONS PLEASE READ *Please take this with you to your next doctors appointment* -You are found to have a urinary tract infection and will be discharged on ciprofloxacin 500 mg twice daily for 5 more days starting tomorrow. Your final urine culture is pending however given your clinical improvement do not feel the need to remain in the hospital for final results and this can be followed upon discharge -Would advise lidocaine patches and topicals for pain relief and avoid opioids if at all possible, will be sent with a prescription for a 5% lidocaine patch to put over your broken rib on the right side -You have can follow-up with orthopedic surgery in the office for your right L2 transverse process nondisplaced fracture in 2 weeks if needed, contact information provided -Would recommend lab work (CBC) to check your blood counts in 2 to 3 days -Your blood counts were stable here and you only had 1 small bowel movement with flecks of red blood on top of your stool that seemed consistent with possible hemorrhoids without GI hemorrhage and no dark blood or significant bleeding. Given that with your stable labs and vital signs, discussed with you, your son, and your daughter and ultimately all decided that given your stability and lack of significant bleeding risks of a procedure and further hospitalization outweighed benefits at this time. If you have any further significant bleeding or drops in your blood counts or abnormal vital signs please return to the hospital. -Would recommend using a stool softener routinely to avoid constipation -You will be discharged on pantoprazole 40 mg twice daily, if no further bleeding can decrease to once daily in 4-8 weeks -Additionally CT scan showed either marked prostate enlargement into the bladder or potential intraluminal neoplasm and recommended considering cystoscopy in the future. Please follow-up with your urologist upon discharge for further discussion if this is something you would like to pursue -Please call your primary care provider's office upon discharge to schedule a hospital follow up within 1 week. -For any concerning signs or symptoms please call 911 or proceed to the nearest emergency department Physical Exam Narrative General: Alert, no acute distress HEENT: Atraumatic, normocephalic Eyes: Anicteric, extraocular movements grossly intact Neck: Supple Respiratory: Clear to auscultation bilaterally, normal respiratory effort Cardiovascular: Regular rate and rhythm GI: Soft, nontender, nondistended Extremities: No edema Musculoskeletal: Moving all extremities, has rolling tremor on right side. Has some pain on palpation of right lower chest wall Neuro: No overt focal neurological deficits Skin: No rashes appreciated Psych: Cooperative Medical Records Data Medical Nutrition Assessment Dietitian: Malnutrition Criteria Met Start: 02/01/23 14:07 Freq: Status: Active Protocol: Document 02/01/23 14:07 WALTER (Rec: 02/01/23 14:07 [id number]) Nutrition Malnutrition Evidence of Malnutrition Exists Yes Malnutrition (severe): Chronic Evidenced By Suboptimal Energy Intake ( Severe),Weight Loss (Severe), Physical Changes (Severe) Clinical Problem Chronic Disease or Condition Related Malnutrition Etiology related to suboptimal appetite and declining health Signs/Symptoms as evidenced by 14.9lbs (9.1%) weight loss in ~2 months, <75 % PO intake of estimated energy needs, and severe fat/ muscle loss to restorationist, orbital , and clavicle. Status Active Problem Recommendation Dietitian Recommendations/Changes Continue Regular diet, soft and bite sized to optimize oral intakes. RD will add EPHP 4x with medpass instead of with meals to promote adequate PO intakes at meals. Weight / BMI Weight Weight: 66.95 kg Body Mass Index (BMI) 20.0 ABG / Lab / Microbiology Data Result Diagrams: 02/02/23 06:50 02/02/23 06:50 Laboratory: Laboratory Results - last 24 hr 02/01/23 15:30: Hgb 8.8 L, Hct 31.7 L 02/01/23 19:40: Hgb 8.2 L, Hct 29.1 L 02/02/23 06:50: WBC 5.8, RBC 3.61 L, Hgb 8.3 L, Hct 29.1 L, MCV 80.6, MCH 23.0 L, MCHC 28.5 L, RDW Std Deviation 51.7 H, RDW Coeff of Josue 17.8 H, Plt Count 242, MPV 10.4, Immature Gran % (Auto) 0.300, Neut % (Auto) 66.2, Lymph % (Auto) 19.3, [place] % (Auto) 11.0 H, Eos % (Auto) 2.9, Baso % (Auto) 0.3, Absolute Neuts (auto) 3.8, Absolute Lymphs (auto) 1.12, Nucleated RBC % 0 02/02/23 06:50: Sodium 140, Potassium 3.6, Chloride 110 H, Carbon Dioxide 23.0, Anion Gap 7, BUN 21 H, Creatinine 0.63 L, Estim Creat Clear Calc 49.28, Est GFR (MDRD) Af Amer 156, Est GFR (MDRD) Non-Af 129, BUN/Creatinine Ratio 33.5 H, Glucose 110 H, Calcium 8.6 Microbiology: Microbiology 01/31/23 21:00 Urine, Random Urine Culture - Preliminary GNR lactose corrections officer Radiography Diagnostic Testing: Radiology Impression Ribs X-Ray 02/01/23 13:00 IMPRESSION: Nondisplaced fractures of the right 11th rib and right L2 transverse process. Electronically Signed: Janina Pérez MD at 13:18 EDT , Meaningful Use Info Meaningful Use Diagnoses (Choose all that apply): None applicable Discharge Plan Admission Admit Date/Time: 01/31/23 23:09 Primary Reason for Your Visit: Hematochezia Attending Provider: Krissy Bryson Primary Care Provider: Claudia Schofield Consulting Providers: Mat Garcia ; Friend,Myron Instructions Patient Instructions: ED Mechanical Fall, ED Fall Prevention Additional Instructions / Restrictions: DISCHARGE INSTRUCTIONS PLEASE READ *Please take this with you to your next doctors appointment* -You are found to have a urinary tract infection and will be discharged on ciprofloxacin 500 mg twice daily for 5 more days starting tomorrow. Your final urine culture is pending however given your clinical improvement do not feel the need to remain in the hospital for final results and this can be followed upon discharge -Would advise lidocaine patches and topicals for pain relief and avoid opioids if at all possible, will be sent with a prescription for a 5% lidocaine patch to put over your broken rib on the right side -You have can follow-up with orthopedic surgery in the office for your right L2 transverse process nondisplaced fracture in 2 weeks if needed, contact information provided -Would recommend lab work (CBC) to check your blood counts in 2 to 3 days -Your blood counts were stable here and you only had 1 small bowel movement with flecks of red blood on top of your stool that seemed consistent with possible hemorrhoids without GI hemorrhage and no dark blood or significant bleeding. Given that with your stable labs and vital signs, discussed with you, your son, and your daughter and ultimately all decided that given your stability and lack of significant bleeding risks of a procedure and further hospitalization outweighed benefits at this time. If you have any further significant bleeding or drops in your blood counts or abnormal vital signs please return to the hospital. -Would recommend using a stool softener routinely to avoid constipation -You will be discharged on pantoprazole 40 mg twice daily, if no further bleeding can decrease to once daily in 4-8 weeks -Additionally CT scan showed either marked prostate enlargement into the bladder or potential intraluminal neoplasm and recommended considering cystoscopy in the future. Please follow-up with your urologist upon discharge for further discussion if this is something you would like to pursue -Please call your primary care provider's office upon discharge to schedule a hospital follow up within 1 week. -For any concerning signs or symptoms please call 911 or proceed to the nearest emergency department Discharge Orders/Prescriptions Prescriptions: New ciprofloxacin HCl 500 mg tablet 500 mg PO BID 5 Days Qty: 10 0RF pantoprazole [Protonix] 40 mg tablet,delayed release (DR/EC) 40 mg PO BID 30 Days Qty: 60 0RF lidocaine 5 % Adhesive Patch,Medicated 1 patch topical DAILY 30 Days Qty: 15 0RF Protocol: *Topical Application Instructions APPLICATION INSTRUCTIONS: R sided rib/chest wall Continued finasteride 5 mg tablet 5 mg PO QDAY Hold Instructions: Resume on 12/22/22. sertraline 100 MG tablet 100 mg PO DAILY Cholecalciferol (Vitamin D3) [Vitamin D3] 5,000 UNIT capsule 5,000 unit PO MO (DME) walker See Rx Instructions .Route .MEDSUPPLY Qty: 1 0RF Rx Instructions: As directed atorvastatin 20 mg tablet 20 mg PO DAILY carbidopa-levodopa 25-250 mg tablet 1 tab PO TID Label Comments: take 1 tablet by mouth three times a day potassium chloride 10 mEq tablet extended release 10 meq PO DAILY tamsulosin 0.4 mg capsule 0.4 mg PO DAILY mirtazapine 15 mg tablet 15 mg PO QHS fludrocortisone 0.1 mg tablet 0.1 mg PO DAILY acetaminophen 650 mg Tablet 650 mg PO Q4H PRN (Reason: Pain) ferrous sulfate [iron] 325 mg (65 mg iron) Tablet 325 mg PO DAILY carvedilol 6.25 mg tablet 6.25 mg PO BID Qty: 180 3RF Changed ropinirole 1 mg tablet 0.5 mg PO TID 30 Days Qty: 0 0RF Label Comments: 1 MG, 1/2 Tablet PO TID Rx Instructions: 1 MG, 1/2 Tablet PO TID Discontinued oxycodone 5 mg tablet 5 mg PO Q8H PRN (Reason: pain) 4 Days Qty: 14 0RF diphenhydramine-acetaminophen [Tylenol PM Extra Strength] 25-500 mg Tablet 2 tab PO QHS Referrals / Follow Up: Claudia Schofield MD [Primary Care Provider] - Within 1 Week Steffen Pandey DO [Med Staff - Active Staff] - See Referral Note (You can follow-up for your right L2 transverse process nondisplaced fracture weeks if needed with Ortho) Disposition Disposition (needs filled in before D/C Order can be placed): Assisted Facility Charges/Coding Visit Charges Inpatient E&M: 57746 Disch Hosp >30min
[2023-02-02 15:57] VITALS: BP 109/65; PULSE 64; RESP 16; TEMP 36.4; O2SAT 96
--- NOTE | 2023-02-02 16:32 | NURSING ---
this RN called and gave report to Yvette at [facility]
== END 2023-02-02 19:40 | disposition skilled nursing facility (03) | DRG 377 ==
LOC: ED 23:11 → MS3 02-01 00:01
PROVIDERS: Admitting Provider Hospitalist; Emergency Provider Student in an Organized Health Care Education/Training Program; PCP Internal Medicine; Visit Provider Internal Medicine
DX: K92.1 Melena (principal); S32.492A Other specified fracture of left acetabulum, initial encounter for closed fracture; E43 Unspecified severe protein-calorie malnutrition; I42.8 Other cardiomyopathies; S32.029A Unspecified fracture of second lumbar vertebra, initial encounter for closed fracture; S32.392A Other fracture of left ilium, initial encounter for closed fracture; S32.512A Fracture of superior rim of left pubis, initial encounter for closed fracture; S22.31XA Fracture of one rib, right side, initial encounter for closed fracture; N39.0 Urinary tract infection, site not specified; G20 Parkinson's disease; F02.80 Dementia in other diseases classified elsewhere, unspecified severity, without behavioral disturbance, psychotic disturbance, mood disturbance, and anxiety; K64.8 Other hemorrhoids; E78.5 Hyperlipidemia, unspecified; I10 Essential (primary) hypertension; W19.XXXA Unspecified fall, initial encounter; N40.0 Benign prostatic hyperplasia without lower urinary tract symptoms; R93.89 Abnormal findings on diagnostic imaging of other specified body structures; R29.6 Repeated falls; Z68.20 Body mass index [BMI] 20.0-20.9, adult; Z95.810 Presence of automatic (implantable) cardiac defibrillator; Z79.899 Other long term (current) drug therapy
CPT/HCPCS: 36415; 70450; 71100; 72125; 74177; 80048; 80053; 81001; 82306; 84484; 85014; 85018; 85025; 85610; 86850; 86900; 86901; 87077; 87086; 87088; 87186; 97110; 97162; 97166; 97530; 97535; 97802; 99285; J7050; Q9967; A4216

== ENCOUNTER → 2023-02-05 | Outpatient (REF) | payer MEDICARE, SELFPAY ==
[2023-02-05 07:36] LABS: Absolute Lymphocyte Count 1.26 X10^3/uL (0.83-4.51); Absolute Neutrophil Count 4.5 X10^3/uL (2.0-7.7); Basophil# 0.04 X10^3/uL; Basophil% 0.6 % (0-1); Eosinophil# 0.17 X10^3/uL; Eosinophils% 2.5 % (0-5); Hematocrit 31.1 % (40-54); Hemoglobin 8.5 g/dL (13.0-16.5); Lymphocyte # 1.26 X10^3/ul (0.83-4.51); Lymphocyte % 18.8 % (19-41); Mean Corp Hgb Conc 27.3 g/dL (32-36); Mean Corpuscular Hgb 22.3 pg (27.0-32.0); Mean Corpuscular Volume 81.6 fL (80-94); Mean Platelet Vol. 9.4 fl (6.2-12.0); Monocyte# 0.67 X10^3/uL; NRBC Flagged by Analyzer 0 % (0-5); Neutrophil # 4.52 X10^3/uL (2.7-7.7); Neutrophil % 67.5 % (47-70); Platelet Count 299 K/mm3 (150-450); RBC Distribution Width CV 17.5 % (11.6-14.6); RBC Distribution Width SD 51.4 fl (35.1-43.9); Red Blood Count 3.81 M/mm3 (4.6-6.2); White Blood Count 6.7 K/mm3 (4.4-11.0)
== END ==
LOC: OLS.SW 05:00
PROVIDERS: PCP Internal Medicine; Visit Provider Internal Medicine
DX: D64.9 Anemia, unspecified (principal)
CPT/HCPCS: 36415; 85025

== ENCOUNTER → 2023-03-13 | Outpatient (REF) | payer MEDICARE, SELFPAY ==
[2023-03-13 09:09] LABS: Absolute Lymphocyte Count 1.63 X10^3/uL (0.83-4.51); Absolute Neutrophil Count 2.8 X10^3/uL (2.0-7.7); Basophil# 0.03 X10^3/uL; Basophil% 0.6 % (0-1); Eosinophils% 5.6 % (0-5); Hematocrit 29.6 % (40-54); Hemoglobin 8.3 g/dL (13.0-16.5); Lymphocyte # 1.63 X10^3/ul (0.83-4.51); Lymphocyte % 30.6 % (19-41); Mean Corpuscular Hgb 22.6 pg (27.0-32.0); Mean Corpuscular Volume 80.4 fL (80-94); Mean Platelet Vol. 9.6 fl (6.2-12.0); Monocyte# 0.59 X10^3/uL; Monocyte% 11.1 % (0-10); NRBC Flagged by Analyzer 0 % (0-5); Neutrophil # 2.75 X10^3/uL (2.7-7.7); Neutrophil % 51.7 % (47-70); Platelet Count 200 K/mm3 (150-450); RBC Distribution Width CV 18.3 % (11.6-14.6); RBC Distribution Width SD 53.6 fl (35.1-43.9); Red Blood Count 3.68 M/mm3 (4.6-6.2); White Blood Count 5.3 K/mm3 (4.4-11.0)
[2023-03-13 09:19] LABS: ALB/GLOB Ratio 0.7 RATIO (0.9-2.4); AST(SGOT) 16 U/L (15-37); Alanine Aminotransfer ALT/SGPT 15 U/L (16-61); Albumin, Serum 2.9 g/dL (3.2-5.0); Alkaline Phosphatase 36 U/L (45-117); Anion Gap 5 (5-15); BUN 21 mg/dL (7-18); BUN/Creat Ratio 29.5 RATIO (10-20); Chloride 109 mmol/L (98-107); Creatinine, Serum 0.71 mg/dL (0.70-1.30); EST Glomerular Filtration Rate 111 mL/min (>60); Est Glom Filt Rate - Afr Amer 134 mL/min (>60); Globulin 4.2 g/dL (2.2-4.2); Glucose 88 mg/dL (74-106); Potassium 3.9 mmol/L (3.5-5.1); Protein, Total 7.1 g/dL (6.4-8.2); Sodium Level 142 mmol/L (136-145)
== END ==
LOC: OLS.SW 05:00
PROVIDERS: PCP Internal Medicine; Visit Provider Internal Medicine
DX: D64.9 Anemia, unspecified (principal); R10.9 Unspecified abdominal pain
CPT/HCPCS: 36415; 80053; 85025

== ENCOUNTER → 2023-04-11 | Outpatient (REF) | payer MEDICARE, SELFPAY ==
[2023-04-11 10:11] LABS: Anion Gap 6 (5-15); BUN 19 mg/dL (7-18); BUN/Creat Ratio 24.4 RATIO (10-20); Calcium,Total 8.6 mg/dL (8.5-10.1); Chloride 107 mmol/L (98-107); Creatinine, Serum 0.78 mg/dL (0.70-1.30); EST Glomerular Filtration Rate 100 mL/min (>60); Est Glom Filt Rate - Afr Amer 121 mL/min (>60); Glucose 81 mg/dL (74-106); Magnesium 2.1 mg/dL (1.6-2.6); Sodium Level 142 mmol/L (136-145)
== END ==
LOC: OLS.SW 05:00
PROVIDERS: PCP Internal Medicine; Visit Provider Internal Medicine
DX: G20 Parkinson's disease (principal); F02.80 Dementia in other diseases classified elsewhere, unspecified severity, without behavioral disturbance, psychotic disturbance, mood disturbance, and anxiety
CPT/HCPCS: 36415; 80048; 83735

== ENCOUNTER → 2023-07-17 | Outpatient (REF) | payer MEDICARE, SELFPAY ==
[2023-07-17 09:34] LABS: Absolute Lymphocyte Count 1.94 X10^3/uL (0.83-4.51); Absolute Neutrophil Count 4.3 X10^3/uL (2.0-7.7); Basophil# 0.05 X10^3/uL; Basophil% 0.7 % (0-1); Eosinophil# 0.27 X10^3/uL; Eosinophils% 3.7 % (0-5); Hematocrit 38.5 % (40-54); Hemoglobin 11.1 g/dL (13.0-16.5); Lymphocyte # 1.94 X10^3/ul (0.83-4.51); Lymphocyte % 26.6 % (19-41); Mean Corp Hgb Conc 28.8 g/dL (32-36); Mean Corpuscular Hgb 24.9 pg (27.0-32.0); Mean Corpuscular Volume 86.3 fL (80-94); Mean Platelet Vol. 9.1 fl (6.2-12.0); Monocyte# 0.72 X10^3/uL; Monocyte% 9.9 % (0-10); NRBC Flagged by Analyzer 0 % (0-5); Neutrophil # 4.27 X10^3/uL (2.7-7.7); Neutrophil % 58.7 % (47-70); Platelet Count 217 K/mm3 (150-450); RBC Distribution Width CV 19.5 % (11.6-14.6); RBC Distribution Width SD 61.7 fl (35.1-43.9); Red Blood Count 4.46 M/mm3 (4.6-6.2); White Blood Count 7.3 K/mm3 (4.4-11.0)
[2023-07-17 09:48] LABS: Anion Gap 7 (5-15); BUN 19 mg/dL (7-18); BUN/Creat Ratio 20.2 RATIO (10-20); Calcium,Total 8.9 mg/dL (8.5-10.1); Chloride 109 mmol/L (98-107); Creatinine, Serum 0.94 mg/dL (0.70-1.30); EST Glomerular Filtration Rate 80 mL/min (>60); Est Glom Filt Rate - Afr Amer 97 mL/min (>60); Glucose 91 mg/dL (74-106); Potassium 3.6 mmol/L (3.5-5.1); Sodium Level 143 mmol/L (136-145)
== END ==
LOC: OLS.SW 06:50
PROVIDERS: PCP Internal Medicine; Visit Provider Internal Medicine
DX: G20.C Parkinsonism, unspecified (principal)
CPT/HCPCS: 36415; 80048; 85025

== ENCOUNTER → 2023-11-07 | Outpatient (REF) | payer MEDICARE, MEDICAID, SELFPAY ==
--- OUTSIDE RECORDS SUMMARY | 2023-11-07 04:41 | XMS RPT_ITS | CCD ---
Author Name Unknown Address [address] [place] [address] Organization [facility] Care Team Providers Care Silicator Name Role Phone Beverley Wood Unavailable Unavailable Beverley Wood Unavailable Unavailable Beverley Wood Unavailable Unavailable Sal [facility]INCHILL[facility], [facility] Provider SAL [facility] Unavailable PROVIDER, UNKNOWN Admitting Unavailable PROVIDER, UNKNOWN Attending Unavailable ELVIN FLORES Referring Unavailable AIDEE FOSTER Admitting Unavailable PROVIDER, UNKNOWN Attending Unavailable SAL, [facility] Unavailable ELVIN FLORES Referring Unavailable SAL, [facility] Unavailable CONSULT, IP CARDIOLOGY ELECTROPHYSIOLOGY (EP) Co nsulting Unavailable KRISTIN, AIDEE Admitting Unavailable KANWAL FOSTERHER Attending Unavailable REQUEST, IP OCCUPATIONAL THERAPY SERVICE Consult ing Unavailable REQUEST, IP [employer] [facility] Consulting Unavaila ble CONSULT, IP SURGERY UROLOGY Consulting Unav ailable PROVIDER, UNKNOWN Admitting Unavailable PROVIDER, UNKNOWN Attending Unavailable SAL, [facility] Unavailable SAL, [facility] Unavailable PROVIDER, UNKNOWN Admitting Unavailable PROVIDER, UNKNOWN Attending Unavailable Unavailable Primary Care Provider Unavailabl KAUSHIK Camacho Attending Unavailable Allergies Allergy Classification Reported Allergen(s) Allergy Type Date of Onset Reaction(s) Facility (4 sources) Penicillins; Translations: [PENICILLINS] Propensity to adverse reactions to drug 3 [facility] Work Phone: (1 source) Penicillins Drug Allergy [address] [facility] Work Phone: Medications Current Medications Medication Drug Class(es) Dates Sig (Normalized) Sig (Original) acetaminophen 325 mg oral tablet (2 sources) Start: 11-15-2022 take 2 tablets by mouth every four hours acetaminophen (TYLENOL) 325 mg tablet Take 2 Tablets by mouth every 4 hours. 30 Tablet 0 11/15/2022 Active atorvastatin 20 mg oral tablet (2 sources) HMG-CoA Reductase Inhibitor Start: 11-15-2022 End: 11-15-2023 take 1 tablet by mouth at bedtime atorvastatin (LIPITOR) 20 mg tablet Take 1 Tablet by mouth at bedtime. 90 Tablet 3 11/15/2022 11/15/2023 Active carbidopa 25 mg / levodopa 250 mg oral tablet (10 sources) Aromatic Amino Acid Decarboxylation Inhibitor Start: 11-15-2022 take 1 tablet by mouth three times daily carbidopa-levodopa (SINEMET) 25-250 MG per tablet Take 1 Tablet by mouth 3 times daily. 90 Tablet 3 11/15/2022 Active Completed/Discontinued Medications Medication Drug Class(es) Dates Sig (Normalized) Sig (Original) acetaminophen 325 mg / oxyCODONE hydrochloride 5 mg oral tablet (6 sources) Opioid Agonist Start: 12-11-2012 End: 12-12-2012 PERCOCET 5-325 MG TABS As needed OXYCODONE-ACETAMI ZIGGYHEN [id number] Edie Alfaro RN ALPRAZolam 1 mg oral tablet (6 sources) Benzodiazepine Start: 04-02-2012 End: 12-12-2012 take 1 tablet by mouth three times daily XANAX 1 MG TABS One tablet by mouth three times daily ALPRAZOLAM [id number] Natan Perez MD aspirin 81 mg oral tablet (7 sources) Nonsteroidal Anti-inflammatory Drug Start: 12-12-2012 take 1 tablet by mouth once daily ASPIRIN 81 MG TABS One tablet by mouth daily ASPIRIN [id number] Natan Perez MD Problems Active Problems Problem Classification Problem Date Documented Date Episodic/Chronic Cardiac dysrhythmias (3 sources) Ventricular tachycardia; Translations: [Ventricular tachycardia] Onset: 04-02-2012 04-02-2012 Chronic Conduction disorders (3 sources) Presence of automatic (implantable) cardiac defibrillator; Translations: [Presence of automatic (implantable) cardiac defibrillator] Onset: 02-06-2013 02-06-2013 Chronic Disorders of lipid metabolism (3 sources) Hyperlipidemia; Translations: [Hyperlipidemia, unspecified] Onset: 04-02-2012 04-02-2012 Chronic Essential hypertension (5 sources) Hypertensive disorder; Translations: [Essential hypertension] Onset: 04-02-2012 04-02-2012 Chronic Genitourinary symptoms and ill-defined conditions (1 source) Retention of urine, unspecified; Translations: [Retention of urine, unspecified] Onset: 01-11-2023 Episodic Hyperplasia of prostate (3 sources) Benign prostatic hyperplasia; Translations: [Benign prostatic hyperplasia without lower urinary tract symptoms] Onset: 01-11-2023 11-15-2022 Chronic Other diseases of kidney and ureters (1 source) Other obstructive and reflux uropathy; Translations: [BPH with urinary obstruction] Onset: 01-11-2023 Episodic Other nervous system disorders (2 sources) Acute postoperative pain; Translations: [Other acute postprocedural pain] Onset: 11-06-2022 11-15-2022 Episodic Parkinson`s disease (2 sources) Parkinson's disease; Translations: [Parkinson's disease] 11-15-2022 Chronic Nathaly-; endo-; and myocarditis; cardiomyopathy (5 sources) Dilated cardiomyopathy; Translations: [Hypertrophic cardiomyopathy] Onset: 12-12-2012 12-12-2012 Chronic Past or Other Problems Problem Classification Problem Date Documented Da te Episodic/Chronic Abdominal hernia (3 sources) Irreducible inguinal hernia; Translations: [Unilateral inguinal hernia, with obstruction, without gangrene, not specified as recurrent] Onset: 10-28-2012 11-06-2022 Episodic Syncope (3 sources) Syncope and collapse; Translations: [Syncope and collapse] Onset: 04-02-2012 04-02-2012 Episodic Unclassified (6 sources) Body mass index (BMI) 27.0-27.9, adult; Translations: [Body mass index (BMI) 26.0-26.9, adult] Onset: 01-15-2014 07-16-2014 Episodic Results Test Name Value Interpretation Reference Range Facil ity Vital Signs Date Time Vital Sign Value Performing Clinician Ashley varela 07-26-2017 11:11-0400 BMI (Body Mass Index) 26.92 kg/m2 Beverley [facility] [employer] [facility] Work Phone: 07-26-2017 11:11-0400 BP Diastolic 70 mm[Hg] [facility] Work Phone: 07-26-2017 11:11-0400 BP Systolic 134 mm[Hg] [facility] Work Phone: 07-26-2017 11:11-0400 Height 180.34 cm [facility] Work Phone: 07-26-2017 11:11-0400 Pulse (Heart Rate) 64 /min [facility] Work Phone: 07-26-2017 11:11-0400 Respiratory Rate 16 /min [facility] Work Phone: 07-26-2017 11:11-0400 Weight 87.54 kg [facility] Work Phone: 10-22-2016 12:59-0500 BMI (Body Mass Index) 27.89 kg/m2 [facility] Work Phone: 10-22-2016 12:59-0500 BP Diastolic 80 mm[Hg] [facility] Work Phone: 10-22-2016 12:59-0500 BP Systolic 120 mm[Hg] [facility] Work Phone: 10-22-2016 12:59-0500 BSA (Body Surface Area) 2.11 m2 [facility] Work Phone: 10-22-2016 12:59-0500 Pulse (Heart Rate) 60 /min [facility] Work Phone: 10-22-2016 12:59-0500 Weight 90.72 kg [facility] Work Phone: 04-24-2016 13:09-0400 Respiratory Rate 20 /min [facility] Work Phone: 04-04-2012 13:04-0400 Height 180.34 cm [facility] Work Phone: Encounters Encounter Date Encounter Type Care Provider Facility Start: 01-11-2023 End: 01-12-2023 ambulatory KAUSHIK GRIFFIN Facility:[facility] Start: 01-10-2023 Telephone encounter Kaushik stockton PA-C Work Phone: Urology Procedures Date Procedure Procedure Detail Performing Clinician Start: 07-26-2017 End: 07-26-2017 Device Interrogation Natan Perez MD Start: 07-26-2017 End: 07-26-2017 Follow Up Appt 6 months Gary Chung Start: 07-26-2017 End: 07-26-2017 LIZA Perez MD Start: 07-26-2017 End: 07-29-2017 Prgrmg eval implantable in prsn dual lead rockyb Natan Perez MD Start: 10-22-2016 End: 10-22-2016 QUALITY CONTROL DIRECTOR Virginia Ferrell PA-C Work Phone: Start: 10-22-2016 End: 10-22-2016 Device Interrogation Virginia pelaez PA-C Work Phone: Start: 10-22-2016 End: 10-22-2016 Follow Up Appt 6 months Virginia kaye PA-C Work Phone: Start: 04-24-2016 End: 04-24-2016 Follow Up Appt 6 months Gary Chung Start: 04-24-2016 End: 04-24-2016 LIZA Perez MD Start: 03-02-2016 End: 10-15-2016 Follow Up Appt 3 months Gary Chung Start: 03-02-2016 End: 10-15-2016 Pacer Clinic Natan Perez MD Start: 03-02-2016 End: 03-02-2016 Prgrmg eval implantable in prsn dual lead dfb Natan Perez MD Start: 11-21-2015 End: 10-15-2016 Follow Up Appt 3 months Virginia kaye PA-C Work Phone: Start: 11-21-2015 End: 10-15-2016 Pacer Clinic Virginia Ferrell PA-C Work Phone: Start: 11-21-2015 End: 11-21-2015 Prgrmg eval implantable in prsn dual lead dfb Virginia Ferrell PA-C Work Phone: Start: 10-11-2015 End: 10-11-2015 QUALITY CONTROL DIRECTOR Virginia Ferrell PA-C Work Phone: Start: 10-11-2015 End: 10-11-2015 Ecg routine ecg w/least 12 lds w/i&r Virginia Ferrell PA-C Work Phone: Start: 10-11-2015 End: 10-11-2015 Follow Up Appt 6 months Virginia kaye PA-C Work Phone: Start: 08-15-2015 End: 09-14-2015 Follow Up Appt 3 months Saul Jiménez MD Start: 08-15-2015 End: 09-14-2015 Pacer Clinic Saul Jiménez MD Start: 08-15-2015 End: 08-15-2015 Prgrmg eval implantable in prsn dual lead dfb Saul Jiménez MD Start: 05-13-2015 End: 08-10-2015 Follow Up Appt 3 months Virginia kaye PA-C Work Phone: Start: 05-13-2015 End: 08-10-2015 Pacer Clinic Virginia Ferrell PA-C Work Phone: Start: 05-13-2015 End: 05-13-2015 Prgrmg eval implantable in prsn dual lead dfb Virginia Ferrell PA-C Work Phone: Start: 02-04-2015 End: 02-05-2015 Documentation of current medications Natan Perez MD Start: 02-04-2015 End: 08-10-2015 Follow Up Appt 3 months Gary Chung Start: 02-04-2015 End: 02-04-2015 Follow Up Appt 6 months Gary Chung Start: 02-04-2015 End: 02-04-2015 MM Natan Perez MD Start: 02-04-2015 End: 08-10-2015 Pacer Clinic Natan Perez MD Start: 02-04-2015 End: 02-04-2015 Prgrmg eval implantable in prsn dual lead dfb Natan Perez MD Start: 11-12-2014 End: 02-04-2015 Follow Up Appt 3 months Gary Chung Start: 11-12-2014 End: 02-04-2015 Pacer Clinic Ntaan Perez MD Start: 11-12-2014 End: 11-12-2014 Prgrmg eval implantable in prsn dual lead ry Perez MD Start: 07-16-2014 End: 02-04-2015 QUALITY CONTROL DIRECTOR Virginia Ferrell PA-C Work Phone: Start: 07-16-2014 End: 02-04-2015 Follow Up Appt 3 months Gary Chung Start: 07-16-2014 End: 02-04-2015 Follow Up Appt 6 months Virginia kaye PA-C Work Phone: Start: 07-16-2014 End: 02-04-2015 Pacer Clinic Natan Perez MD Start: 07-16-2014 End: 07-16-2014 Prgrmg eval implantable in prsn dual lead dfb Natan Perez MD Start: 04-21-2014 End: 07-02-2014 Follow Up Appt 3 months Virginia kaye PA-C Work Phone: Start: 04-21-2014 End: 07-02-2014 Pacer Clinic Virginia Ferrell PA-C Work Phone: Start: 04-21-2014 End: 04-21-2014 Prgrmg eval implantable in prsn dual lead dfb Virginia Ferrell PA-C Work Phone: Start: 01-15-2014 End: 01-15-2014 Follow Up Appt 3 months Gary Chung Start: 01-15-2014 End: 01-15-2014 Follow Up Appt 6 months Gary Chung Start: 01-15-2014 End: 01-15-2014 [facility] Natan Perez MD Start: 01-15-2014 End: 01-15-2014 Pacer Clinic Natan Perez MD Start: 01-15-2014 End: 01-15-2014 Prgrmg eval implantable in prsn dual lead rockyb Natan Perez MD Start: 10-16-2013 End: 07-02-2014 Follow Up Appt 3 months Virginia kaye PA-C Work Phone: Start: 10-16-2013 End: 07-02-2014 Pacer Clinic Virginia Ferrell PA-C Work Phone: Start: 10-16-2013 End: 10-16-2013 Prgrmg eval implantable in prsn dual lead dfb Virginia Ferrell PA-C Work Phone: Start: 07-03-2013 End: 07-02-2014 Carotid duplex Virginia Ferrell PA-C Work Phone: Start: 07-03-2013 End: 07-03-2013 QUALITY CONTROL DIRECTOR Virginia Ferrell PA-C Work Phone: Start: 07-03-2013 End: 07-03-2013 Device Interrogation Virginia pelaez PA-C Work Phone: Start: 07-03-2013 End: 07-02-2014 Follow Up Appt 3 months Gary Chung Start: 07-03-2013 End: 07-03-2013 Follow Up Appt 6 months Virginia kaye PA-C Work Phone: Start: 07-03-2013 End: 07-02-2014 [facility] Natan Perez MD Start: 07-03-2013 End: 07-03-2013 Prgrmg eval implantable in prsn dual lead dfb Natan Perez MD Start: 05-15-2013 End: 06-12-2013 Follow Up Appt 3 months Saul Jiménez MD Start: 05-15-2013 End: 06-12-2013 Pacer Clinic Saul Jiménez MD Start: 05-15-2013 End: 05-15-2013 Prgrmg eval implantable in prsn dual lead dfb Saul Jiménez MD Start: 02-06-2013 End: 06-12-2013 Follow Up Appt 3 months Gary Chung Start: 02-06-2013 End: 06-12-2013 Pac[facility] Clinic Natan Perez MD Start: 02-06-2013 End: 02-06-2013 Prgrmg eval implantable in prsn dual lead dfb Natan Perez MD Start: 12-12-2012 End: 12-12-2012 Follow Up Appt 6 months Gary Chung Start: 12-12-2012 End: 12-12-2012 MMM Natan Perez MD Start: 04-04-2012 End: 12-12-2012 Device Interrogation Natan Perez MD Start: 04-04-2012 End: 04-04-2012 Follow Up Appt 6 months Gary Chung Plan of Treatment Date Care Activity Detail Author Start: 05-11-2026 Tetanus vaccination Tetanus (Td or Tdap) [facility] Start: 11-25-2023 Basic metabolic 2000 panel - Serum or Plasma Basic Metabolic Panel [facility] Start: 05-24-2023 Influenza vaccination INFLUENZA (Season Ended) [facility] Start: 09-23-2022 ADVANCE DIRECTIVE DISCUSSION ADVANCE DIRECTIVE DISCUSSION [facility] Start: 09-23-2022 DEPRESSION ASSESSMENT DEPRESSION ASSESSMENT [facility] Start: 09-23-2022 Welcome to Medicare Visit (G0402) Welcome to Medicare Visit (G0402) [facility] Start: 10-18-2021 COVID-19 Vaccine (4 - Booster for Pfizer series) COVID-19 Vaccine (4 - Booster for Pfizer series) [facility] Start: 01-31-2018 End: 01-31-2018 Appointment Appointment [facility] Work Phone: Start: 10-28-2017 End: 10-28-2017 Appointment Appointment [facility] Work Phone: Start: 07-26-2017 End: 07-26-2017 Device Interrogation Device Interrogation [facility] Work Phone: Start: 07-26-2017 End: 07-29-2017 Follow Up Appt 3 months Follow Up Appt 3 months [facility] Work Phone: Start: 07-26-2017 End: 07-26-2017 Follow Up Appt 6 months Follow Up Appt 6 months [facility] Work Phone: Start: 07-26-2017 End: 07-26-2017 MMM MMM [facility] Work Phone: Start: 07-26-2017 End: 07-29-2017 Pacer Clinic Pacer Clinic [facility] Work Phone: Start: 10-22-2016 End: 10-22-2016 QUALITY CONTROL DIRECTOR QUALITY CONTROL DIRECTOR [facility] Work Phone: Start: 10-22-2016 End: 10-22-2016 Device Interrogation Device Interrogation [facility] Work Phone: Start: 10-22-2016 End: 10-22-2016 Follow Up Appt 6 months Follow Up Appt 6 months [facility] Work Phone: Start: 04-24-2016 End: 04-24-2016 Follow Up Appt 6 months Follow Up Appt 6 months [facility] Work Phone: Start: 04-24-2016 End: 04-24-2016 MMM MMM [facility] Work Phone: Start: 03-02-2016 End: 10-15-2016 Follow Up Appt 3 months Follow Up Appt 3 months [facility] Work Phone: Start: 03-02-2016 End: 10-15-2016 Pacer Clinic Pac[facility] Clinic [facility] Work Phone: Start: 11-21-2015 End: 10-15-2016 Follow Up Appt 3 months Follow Up Appt 3 months [facility] Work Phone: Start: 11-21-2015 End: 10-15-2016 Pacer Clinic [facility] Work Phone: Start: 10-11-2015 End: 10-11-2015 QUALITY CONTROL DIRECTOR QUALITY CONTROL DIRECTOR [facility] Work Phone: Start: 10-11-2015 End: 10-11-2015 Ecg routine ecg w/least 12 lds w/i&r EKG (In office) [facility] Work Phone: Start: 10-11-2015 End: 10-11-2015 Follow Up Appt 6 months Follow Up Appt 6 months [facility] Work Phone: Start: 08-15-2015 End: 09-14-2015 Follow Up Appt 3 months Follow Up Appt 3 months [facility] Work Phone: Start: 08-15-2015 End: 09-14-2015 Pacer Clinic Pac[facility] Clinic [facility] Work Phone: Start: 05-13-2015 End: 08-10-2015 Follow Up Appt 3 months Follow Up Appt 3 months [facility] Work Phone: Start: 05-13-2015 End: 08-10-2015 Pacer Clinic [facility] Work Phone: Start: 02-04-2015 End: 08-10-2015 Follow Up Appt 3 months Follow Up Appt 3 months [facility] Work Phone: Start: 02-04-2015 End: 02-04-2015 Follow Up Appt 6 months Follow Up Appt 6 months [facility] Work Phone: Start: 02-04-2015 End: 02-04-2015 MMM MMM [facility] Work Phone: Start: 02-04-2015 End: 08-10-2015 Pacer Clinic [facility] Work Phone: Start: 11-12-2014 End: 02-04-2015 Follow Up Appt 3 months Follow Up Appt 3 months [facility] Work Phone: Start: 11-12-2014 End: 02-04-2015 Pacer Clinic Pac[facility] Clinic [facility] Work Phone: Start: 07-16-2014 End: 02-04-2015 [facility] Work Phone: Start: 07-16-2014 End: 02-04-2015 Follow Up Appt 3 months Follow Up Appt 3 months [facility] Work Phone: Start: 07-16-2014 End: 02-04-2015 Follow Up Appt 6 months Follow Up Appt 6 months [facility] Work Phone: Start: 07-16-2014 End: 02-04-2015 Pacer Clinic [facility] Clinic [facility] Work Phone: Start: 04-21-2014 End: 07-02-2014 Follow Up Appt 3 months Follow Up Appt 3 months [facility] Work Phone: Start: 04-21-2014 End: 07-02-2014 Pacer Clinic [facility] Work Phone: Start: 01-15-2014 End: 01-15-2014 Follow Up Appt 3 months Follow Up Appt 3 months [facility] Work Phone: Start: 01-15-2014 End: 01-15-2014 Follow Up Appt 6 months Follow Up Appt 6 months [facility] Work Phone: Start: 01-15-2014 End: 01-15-2014 MMM MMM [facility] Work Phone: Start: 01-15-2014 End: 01-15-2014 Pacer Clinic [facility] Clinic [facility] Work Phone: Start: 10-16-2013 End: 07-02-2014 Follow Up Appt 3 months Follow Up Appt 3 months [facility] Work Phone: Start: 10-16-2013 End: 07-02-2014 Pacer Clinic [facility] Work Phone: Start: 07-03-2013 End: 07-03-2013 Carotid duplex Carotid duplex [facility] Work Phone: Start: 07-03-2013 End: 07-03-2013 QUALITY CONTROL DIRECTOR QUALITY CONTROL DIRECTOR [facility] Work Phone: Start: 07-03-2013 End: 07-03-2013 Device Interrogation Device Interrogation [facility] Work Phone: Start: 07-03-2013 End: 07-02-2014 Follow Up Appt 3 months Follow Up Appt 3 months [facility] Work Phone: Start: 07-03-2013 End: 07-03-2013 Follow Up Appt 6 months Follow Up Appt 6 months [facility] Work Phone: Start: 07-03-2013 End: 07-02-2014 Pacer Clinic Pacer Clinic [facility] Work Phone: Start: 05-15-2013 End: 06-12-2013 Follow Up Appt 3 months Follow Up Appt 3 months [facility] Work Phone: Start: 05-15-2013 End: 06-12-2013 Pacer Clinic [facility] Work Phone: Start: 02-06-2013 End: 06-12-2013 Follow Up Appt 3 months Follow Up Appt 3 months [facility] Work Phone: Start: 02-06-2013 End: 06-12-2013 Pacer Clinic [facility] Clinic [facility] Work Phone: Start: 12-12-2012 End: 12-12-2012 Follow Up Appt 6 months Follow Up Appt 6 months [facility] Work Phone: Start: 12-12-2012 End: 12-12-2012 MMM MMM [facility] Work Phone: Start: 04-04-2012 End: 12-12-2012 Device Interrogation Device Interrogation [facility] Work Phone: Start: 04-04-2012 End: 04-04-2012 Follow Up Appt 6 months Follow Up Appt 6 months [facility] Work Phone: Start: 12-18-2000 PNEUMOCOCCAL: 65+ (1 - PCV) PNEUMOCOCCAL: 65+ (1 - PCV) [facility] Start: 12-18-1985 SHINGRIX VACCINE (1 of 2) SHINGRIX VACCINE (1 of 2) [facility] Start: 12-18-1980 DIABETES SCREEN DIABETES SCREEN [facility] Start: 12-18-1954 Urine microalbumin profile DTAP,TDAP,TD (1 - Tdap) [facility] Start: 06-20-1936 COVID-19 VACCINE (#1) COVID-19 VACCINE (#1) [facility] Immunizations Immunization Date Immunization Notes Care Provider Mickie watt 05-21-2022 Influenza, injectabl e, high-dose seasonal, quadrivalent, 0.7 mL, preservative free (DHX=423) Cortney Fraser Work Phone: [facility] 09-11-2021 influenza, injectabl e, quadrivalent, contains preservative Cortneyzeynep Fraser Work Phone: [facility] 09-28-2020 pneumococcal polysac charide vaccine, 23 valent Cortney Fraser Work Phone: [facility] 09-28-2020 zoster vaccine recombinant K [employer]ynep Fraser Work Phone: [facility] 05-14-2020 zoster vaccine recombinant K [employer] Work Phone: [facility] 06-15-2019 influenza, injectabl e, quadrivalent, contains preservative Cortney Fraser Work Phone: [facility] 07-05-2017 pneumococcal conjuga te vaccine, 13 valent Cortney Fraser Work Phone: [facility] 07-05-2017 Seasonal trivalent i nfluenza vaccine, adjuvanted, preservative free Cortney Fraser Work Phone: [facility] 05-11-2016 tetanus toxoid, redu charles diphtheria toxoid, and acellular pertussis vaccine, adsorbed Cortney Fraser Work Phone: [facility] 07-01-2015 influenza, high dose seasonal, preservative-free Cortney Fraser Work Phone: [facility] Payers Date Payer Category Payer Medicare [id number] 2022 Private Health Insurance [id number] 1935 Unknown [id number] [id number]. [id number] 1935 Unknown [id number] [id number]. [id number] 1935 Unknown [id number] 2.16. [id number] 1935 Unknown [id number] 2.16. [id number] 1935 Unknown [id number] 2.16. [id number] Social History Date Type Detail Facility Tobacco smoking stat [facility] Tobacco smoking consumption unknown [facility] Start: 1935 Sex Assigned At Not on file M [facility] Start: 10-27-2022 End: 11-06-2022 Exposure to SARS-CoV-2 (event) Not sure [facility] Start: 12-12-2012 Tobacco smoking stat [facility] Ex-smoker [facility] End: 09-23-1970 History of tobacco use Current smoker [facility] End: 09-23-1970 History of tobacco use Cigarette Smoker [facility] Start: 12-12-2012 Tobacco use and exposure Smokeless t obacco non-user [facility] Start: 05-09-2022 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 Author Type: Physician Special Education Tutor Type: Progress Notes Filed: 01/11/2023 3:50 PM Note Text: [facility] NEW PATIENT CLINIC NOTE SERVICE DATE: 01/11/2023 SERVICE TIME: 3:34 PM NAME: Miquel Small CHIEF COMPLAINT: BPH with urine retention HISTORY OF PRESENT ILLNESS: Miquel Small is a 87 year old male presenting with BPH and urine retention The patient reports he was seen at ED and was started on Proscar and Flomax Bur only on Flomax per documentation we got from [facility] ER LUTS: DYSURIA: no URGENCY: No FREQUENCY:6 per day NOCTURIA: 3 per night STRAINING TO VOID: Yes EMPTIES COMPLETELY: No UTI: No GROSS HEMATURIA: no UA DIPSTICK POSITIVE ONLY: no Other symptoms: LABS: No results found for: TESTOST No results found for: TESTFREE No results found for: PSA No results found for: HCT No results found for: PSA No results found for: CREAT . MEDICATIONS: tamsulosin HCl (FLOMAX ORAL) Take 0.4 mg by mouth daily at bedtime. atorvastatin (LIPITOR) 20 mg tablet Take 20 mg by mouth daily at bedtime. Mirtazapine (REMERON) 7.5 mg tablet Take 7.5 mg by mouth daily at bedtime. rOPINIRole (REQUIP) 0.5 mg tablet Take 1 tablet by mouth three times daily. multivitamin tablet Take 1 tablet by mouth once daily. carvedilol (COREG) 6.25 mg tablet Take 6.25 mg by mouth twice daily with meals. Hold if blood pressure less than 100/60 carbidopa-levodopa (SINEMET) 25-100 mg per tablet Take 1 tablet by mouth three times daily. sertraline (ZOLOFT) 100 mg tablet Take 1 tablet by mouth once daily. aspirin, enteric coated (ASPIR-LOW) 81 mg EC tablet Take 1 tablet by mouth once daily. (Patient not taking: Reported on 01/11/2023) dutasteride (AVODART) 0.5 mg capsule Take 1 capsule by mouth twice daily. (Patient not taking: Reported on 01/11/2023) carbidopa-levodopa CR 50-200 mg per tablet Take 1 tablet by mouth twice daily. (Patient not taking: Reported on 01/11/2023) simvastatin (ZOCOR) 40 mg tablet Take 1 tablet by mouth daily at bedtime. (Patient not taking: Reported on 01/11/2023) terazosin 5 mg capsule Take 1 capsule by mouth daily at bedtime. (Patient not taking: Reported on 01/11/2023) PAST MEDICAL HISTORY: PAST MEDICAL HISTORY Diagnosis Date Benign localized prostatic hyperplasia with lower urinary tract symptoms (LUTS) Dementia in other diseases classified elsewhere, unspecified severity, without behavioral disturbance, psychotic disturbance, mood disturbance, and anxiety (HCC) Depression, unspecified Dysphagia, oropharyngeal phase Essential hypertension Generalized anxiety disorder Hypercholesteremia Hyperlipidemia, unspecified Hypoxemia Incarcerated inguinal hernia, unilateral right Major depressive disorder, recurrent, unspecified (HCC) Myocardial infarction (HCC) 09/23/2011 Other hypertrophic cardiomyopathy (HCC) Other symbolic dysfunctions Parkinson's disease (HCC) Restless legs syndrome (RLS) Retention of urine, unspecified Unilateral inguinal hernia without obstruction or gangrene, recurrence not specified Unspecified protein-calorie malnutrition (HCC) PAST SURGICAL HISTORY: PAST SURGICAL HISTORY Procedure Laterality Date DRG PERITONEAL ABSCESS/LOCAL PERITONITIS OPEN 10/11/12 LAP REPAIR INCARCERATED INGUINAL HERNIA PACEMAKER IMPLANT 2011 pacemaker AND ICD FAMILY HISTORY: FAMILY HISTORY Problem Relation Age of Onset Heart Mother None Father SOCIAL HISTORY: Social Connections: Not on file REVIEW OF SYSTEMS: GENERAL: No fever, chills, weight loss, or fatigue. ENMT: Negative CARDIOVASCULAR:NO CHEST PAIN, PALPITATIONS, ANKLE EDEMA RESPIRATORY: No chronic cough, wheezing, dyspnea, hemoptysis. GENITOURINARY: SEE HPI MUSCULOSKELETAL:NO CHRONIC BACK PAIN, ARTHRITIS, CHRONIC NECK PAIN SKIN: NO VARICOSE VEINS, RASH, ABNORMAL ITCHING HEME/LYMPH/IMMUNE:Negative for prolonged bleeding, bruising easily or swollen nodes NEUROLOGICAL: NO HEADACHES, NUMBNESS, SEIZURES, STROKE DIABETES: no All other systems reviewed and are negative PHYSICAL EXAMINATION: Blood pressure 92/60, pulse 72, temperature 36.7 ?C (98 ?F), temperature source Temporal, resp. rate 12, weight 68.9 kg (152 lb), SpO2 99 %. GENERAL: WNL nutrition, no deformities, healthy appearing NEURO: Awake, alert and oriented x 3 and Normal gait PSYCH: No signs of depression, anxiety, or agitation ENMT (Ear, Nose, Mouth, Throat): No masses, adenopathy, icterus. Thyroid nonpalpable RESP: NL effort, no retractions or purse-lip breathing. CV: No extremity swelling, varices, edema, pallor, erythema GASTROINTESTINAL: Soft, nontender, nondistended, no masses. HERNIAS: None SKIN: No rash, lesions No palpable lymphadenopathy MUSCULOSKELETAL: Extremities normal. No deformities, edema, clubbing or skin discoloration. PROBLEM L (more content not included)... [facility] 01-11-2023 Note HNO ID: [id number] Author: Cortney Lafleur LPN Service: ? Author Type: ? Type: Progress Notes Filed: 01/11/2023 3:50 PM Note Text: Verified name and date of . CC Post Void Residual HPI: Miquel Small is a 87 year old male. The patient is here now for an appointment with TONNY Rod, MT, PA-COV. Procedure: Explained procedure to patient and verbalizes understanding. Performed a PVR. Patient urinated and instructed to empty bladder as much as possible just prior to having PVR done using bladder ultrasound scanner. Results of scan: 135 mL The patient tolerated the procedure well. Plan: Appointment with Kaushik. Patient has cognitive deficits. Caregiver with patient is not sure why patient is being seen in urology. Requested records from coworker with [employer] and called [facility]. Spoke with Yvette who states patient had surgery in October, ended up with catheter and he had pulled it out and had blood in urine, and was referred to urology afterwards. Has weak stream, dark urine, cloudy urine today at appointment. [facility] 01-10-2023 Miscellaneous Notes Your call cannot be completed as dialed. Cortney Lafleur LPN documented in this encounter [facility] 12-26-2022 Telephone encounter Note Sonia from the [facility] residing called to confirm his appt with Kristin 01/01/2023, Dr. Foster assess his wounds before he was discharged, and stated that the patient could schedule on a need bases. I confirmed with Grace at the [facility] on a previous encounter. [facility] 12-26-2022 Miscellaneous Notes Sonia from the [facility] where Mr[facility] Kohler is residing called to confirm his appt with Kristin 01/01/2023, Dr. Foster assess his wounds before he was discharged, and stated that the patient could schedule on a need bases. I confirmed with Grace at the [facility] on a previous encounter. documented in this encounter [facility] 12-06-2022 Telephone encounter Note Patient sister called to verify her brothers appt for 01/01/2023, on 12/04/2022. At that time the appt was scheduled, Grace patient sister wanted to know about transportation to his appt because he was residing at a [facility]. I told her that most mcc provide transportation for their residence to see their doctors or to make their appt. Today 12/06/2022, Grace contact urology to confirm her brothers appt, the urology executive legal secretary informed Grace that the trauma appts was cancelled, further investigation with Kishan the nurse coordinator, he found out that Dr. Foster inspected his surgical area and was pleased at the way it was healing, and that there were no need for any future appts with trauma at this current time. Grace wanted her brother to see his urologist in [place], she proceeded to give me their phone number and I contacted them to get their fax number, Grace called me back and state that she will keep the urology appt [facility]. Also Kishan informed me to let Grace know that her brother must schedule with Schedule an appointment with LA GUARDADO MD as soon as possible for a visit As soon as possible following discharge to discuss your chronic health conditions. [facility] [place] [phone] Grace stated that she would schedule with that doctor for her brother as well [facility] 12-06-2022 Miscellaneous Notes Patient sister called to verify her brothers appt for 01/01/2023, on 12/04/2022. At that time the appt was scheduled, Grace patient sister wanted to know about transportation to his appt because he was residing at a [facility]. I told her that most mcc provide transportation for their residence to see their doctors or to make their appt. Today 12/06/2022, Grace contact urology to confirm her brothers appt, the urology executive legal secretary informed Grace that the trauma appts was cancelled, further investigation with Kishan the nurse coordinator, he found out that Dr. Foster inspected his surgical area and was pleased at the way it was healing, and that there were no need for any future appts with trauma at this current time. Grace wanted her brother to see his urologist in [place], she proceeded to give me their phone number and I contacted them to get their fax number, Grace called me back and state that she will keep the urology appt with [facility]. Also Kishan informed me to let Grace know that her brother must schedule with Schedule an appointment with LA GUARDADO MD as soon as possible for a visit As soon as possible following discharge to discuss your chronic health conditions. [facility] [place] [phone] Grace stated that she would schedule with that doctor for her brother as well documented in this encounter [facility] 11-30-2022 Note Occupational Therapy Progress Summary Patient seen from 09 to 09 on 4E unit, Room [place] [id number] for 21 minutes. SUBJECTIVE: Patient Subjective: That's what I hear. Patient anticipating D/C today. Patient Identified Goal(s): Return to facility. OBJECTIVE: Appearance: sidelying in bed. Civilian clothes with hospital socks. Alertness: WFL Affect: Calm Cooperation/Behavior: Cooperative Communication: clear speech Pain: 0/10 Pain Relief Interventions Implemented: None required; No pain at this time Cognition: A x O x 3 UE Status: WFL for ADLs, (+) tremors. Self Care: Assistance Level NA Dep Max Mod Min CG CS DS DC I Set-Up Comment Feeding x Grooming/Hygiene x Bathing:UB x Bathing:LB x Dressing:UB x Dressing: LB x Toileting x Transfers/Bed Mobility: Assistance Level NA Dep Max Mod Min CG CS DS DC I Set-Up Comment Toilet Transfers x Bed Transfers x Bed Mobility x Patient attempting to get to the EOB with the bed rails raised. Bed rail dropped and patient able to go from sidelying to sit with CS Ambulation x Ambulated x 350 feet without a devices with CS Endurance for Self Care: Good Static Sitting Balance: WFL Dynamic Sitting Balance: WFL Patient/Family Education: Instructed patient in roles of therapy Patient up @ EOB bed with call light in reach. RN in room. DME: With Patients permission ordered no equipment via [employer] Order. [facility] [phone]. Progressive Mobility Level: 4 6 Clicks Daily Activity OT 11/30/2022 Help from another person Eating meals 4 Help from another person taking care of personal grooming 3 Help from another person bathing 3 Help from another person putting on and taking off regular upper body clothing 3 Help from another person putting on and taking off regular lower body clothing 3 Help from another person toileting 3 OT 6 Clicks Score 19 6 Click Score Guidelines: 1 - Unable = Total/Dependent Assist 2 - A lot = Max/Moderate Assist 3 - A little = Minimum/Contact Guard Assist/Supervision 4 - Non = Modified Van Zandt/Independent ASSESSMENT: Recommend further therapy services in a Skilled Rehab Setting once medically cleared. Will continue to follow patient while in hospital as appropriate. Goals met as follows: Patient will dress upper body with Contact Guard MET Patient will dress lower body with Close supervision MET Patient will perform bed mobility with Distant supervision NOT MET Patient will perform bathing with Close supervision MET Patient will perform toileting with Distant supervision NOT MET Patient will perform bed transfers with Distant supervision MET Patient will perform commode transfers with Distant supervision NOT MET Revised goals: Goals revised today 11/30/2022 for 1-2x/wk as indicated below. Patient will dress upper body Independently Patient will dress lower body Independently Patient will perform bed mobility Independently Patient will perform bathing Independently Patient will perform toileting Independently Patient will perform bed transfers Independently Patient will perform commode transfers Independently PLAN: Will continue with POC per goals as indicated above. Lena Mendiola, OTR/L NA = Not Assessed, I = Independent, DC = Modified Independent, Sup = Supervised, Set up = Physical Assistance for Set-up Only, Min = Minimal Assistance, Mod = Moderate Assistance, Max = Max assistance; Dep = Dependent; AROM = Active Range of Motion;PROM=Passive Range of Motion; MMT = Manual Muscle Test; UB = Upper Body; LB = Lower Body [facility] 11-29-2022 Note Social Work Coverage Note NIKOLAY following for SNF dispo planning. SNF referrals pending for: [facility]- under review [facility]- under review [facility]- no response on [employer], NIKOLAY left for admissions. NIKOLAY sent updates to SNF via [facility], awaiting further responses. SHAUNA Adams, CALDERON 15:15 ADDENDUM [facility] is able to accept pt under medicaid pending, SNF is working with pt's family to ensure Medicaid is fully processed. NIKOLAY spoke with pt's daughter Grace Milligan [phone] who is agreeable for [facility] as facility of choice, family reportedly in agreement. Pt will need Level of Care. [facility] reports [id number] is acceptable. RN to please complete nursing portion of [facility]. submitted [id number]. Plan: DC planners to submit for Level of Care. Pending LOC, pt may be able to DC to [facility] tomorrow 11/30. SHAUNA Adams, CALDERON [facility] 11-28-2022 Note Music Therapy Note Referral Received. Chart reviewed; history noted. Thank you. Patient Identified by Verbalizing name Narrative Note: Date/Time: 11/28/22 at 4:11-4:21 pm. Time spent: 10 minutes. Music Therapist (MT) entered room for ongoing assessment AND support, found patient laying in bed at an incline with eyes open, displaying a appropriate affect, alone in room. MT verbally reintroduced self to pt and explained role of therapy. Upon assessment, pt demonstrated good eye contact and expressed remembering MT and recalled previous interaction. Pt expressed feeling cold and requested a blanket - MT acquired a warm blanket for pt and assisted in placing blanket on pt. Pt expressed appreciation. Pt denied pain and indicated having a good day. MT offered options of possible interventions for autonomy, reminding pt of support through use of music therapy interventions. Pt declined due to the anticipation of his dinner but was agreeable or MT at a later time saying I look forward to it! MT will continue to follow. Goals Addressed: Enhanced coping skills as evidenced by: increased identification of hospital resources Improved quality of life as evidenced by: improved comfort Music Intervention: Pt declined Plan: Music Therapy will follow throughout hospitalization/ICU stay. Please refer to Music Therapy Inpatient flowsheet for more data. Domonique Staton MA, MT- Music Therapist, [employer] for [employer] in [place] Pager [phone] [email or web address] 11-27-2022 Note PHYSICAL THERAPY PRO EMELY SUMMARY Patient seen from 11:00 am to 11:23 am on 4E unit for 23 minute treatment. SUBJECTIVE: Patient Subjective/Goals: Thank you for going on a walk with me . OBJECTIVE: Appearance: Standing in bathroom at onset, hep-locked IV, clothes from home. Behavior: Alert, extremely pleasant, cooperative and agreeable to treatment. Oriented x self, place, month. Pain: Site/Location: n/a; Pain Scale: 0/10 Pain Relief Interventions Implemented: None required; No pain at this time Mobility NA Dep Max Mod Min CG CS DS DC I Comment Supine to sit x Not performed during session but observed earlier on in the day. Transfers x To/from low toilet in bathroom without the use of grab bars. Pt had to use the bathroom during session and was able to perform all nathaly-care with Mod I. Sit to/from stand x With no AD. Good technique. Walking on level surface x 100'x3 with wheel walker. Pt ambulated with decreased yariel, step through gait, poor body postioning outside of walker, occasionally taking hands off walker to hold up pants, mild unsteadiness no overt LOB. Stand to sit x Functional Endurance: Good Patient/Family Education: Roles of PT. Importance of daily mobilization and participation with therapy. Patient sitting in bedside chair after session with call light in reach. Pt instructed to call nursing for assist with pt verbalizing understanding. DME: With Patients permission ordered no equipment via [employer] Order. If any questions contact [facility] DME Provider at [phone]. 6 Clicks Basic Mobility PT 11/27/2022 Difficulty turning over in bed 4 Difficulty sitting down and standing up from a chair with arms 4 Difficulty moving from lying on back to sitting on the side of the bed 4 Help from another person moving to and from bed to a chair 3 Help from another person to walk in hospital room 3 Help from another person climbing 3-5 steps with a railing 3 PT 6 Clicks Score 21 6 Click Score Guidelines: 1 - Total = Requires total assistance, or cannot do at all. 2 - A lot = Requires a lot of help (maximun to moderate assistance) Can use assistive devices. 3 - A little = Requires a little help (supervision, minimal assistance) Can use assistive devices. 4 - None = Does not require any help and does the activity independently. Can use assistive devices. ASSESSMENT: Pt continues to demonstrate impaired cognition and lives alone with no assistance available at home. Continue to recommend further therapies in a Skilled Setting to maximize functional outcomes when medically clear. Goals: ONGOING Patient will achieve acceptable level of pain control to allow participation in therapy. Met Patient will increase bed mobility to independent Patient will perform sit to/from stand transfer bed to/from chair with rolling walker with modified independent Patient will ambulate 300 feet with rolling walker with mod I Patient will increase ROM/Strength/Endurance/Balance to allow for above goals. Patient/Family independent with exercise program/precautions. PLAN: Will follow established Plan of Care Kaushik Blakely PTA NA = Not Assessed, I = Independent, DC = Modified Independent, Sup = Supervised, Set up = Physical Assistance for Set-up Only, Min = Minimal Assistance, Mod = Moderate Assistance, Max = Maximal assistance; Dep = Dependent; AROM = Active Range of Motion; PROM = Passive Range of Motion; MMT = Manual Muscle Test [facility] 11-22-2022 Note PHYSICAL THERAPY PRO EMELY SUMMARY Patient seen from 237 pm to 303 pm on 9W unit for 26 minute treatment. SUBJECTIVE: Patient Subjective/Goals: I used to be running and jumping all the time in the [employer]. OBJECTIVE: Appearance: Pt walking out of bathroom with RW upon arrival, hep lock IV, zapien catheter had to be readjusted in pt's pants. Behavior: A AND Ox3, pleasant, agreeable to therapy. Pain: Site/Location: n/a; Pain Scale: 0/10 Pain Relief Interventions Implemented: None required; No pain at this time Mobility NA Dep Max Mod Min CG CS DS DC I Comment Transfers x Pt completed all transfers with safe technique and good body mechanics. Sit to/from stand x Walking on level surface x 100 feet x2, 2 trials with rolling walker Gait Analysis: WNL except increased step length on LLE compared to RLE and decreased bilateral heel strike. No LOB or reports of dizziness and/or lightheadedness. Tremors in bilateral hands noted after increased walking distance. Stand to sit x Sit to Supine x Functional Endurance: adequate. Sitting Balance: Static:good Dynamic:good Standing Balance: Static: good with assistive device rolling walker Dynamic:good with assistive device rolling walker Patient/Family Education: Instructed Patient in roles of therapy. Patient up in bed with call light in reach. DME: With Patients permission ordered no equipment via [employer] Order. If any questions contact [facility] DME Provider at [phone]. 6 Clicks Basic Mobility PT 11/22/2022 Difficulty turning over in bed 3 Difficulty sitting down and standing up from a chair with arms 4 Difficulty moving from lying on back to sitting on the side of the bed 3 Help from another person moving to and from bed to a chair 3 Help from another person to walk in hospital room 4 Help from another person climbing 3-5 steps with a railing 3 PT 6 Clicks Score 20 6 Click Score Guidelines: 1 - Total = Requires total assistance, or cannot do at all. 2 - A lot = Requires a lot of help (maximun to moderate assistance) Can use assistive devices. 3 - A little = Requires a little help (supervision, minimal assistance) Can use assistive devices. 4 - None = Does not require any help and does the activity independently. Can use assistive devices. ASSESSMENT: Recommend further therapy services in a Assisted Setting once medically cleared. Will continue to follow patient while in hospital as appropriate. Goals: ONGOING Patient will achieve acceptable level of pain control to allow participation in therapy. Patient will increase bed mobility to independent Patient will perform sit to/from stand transfer bed to/from chair with rolling walker with modified independent Patient will ambulate 50 feet with rolling walker with close supervision Patient will increase ROM/Strength/Endurance/Balance to allow for above goals. Patient/Family independent with exercise program/precautions. PLAN: Will follow established Plan of Care LILY Little, DIANETIC COUNSELOR Read and agreed with documentation above. NA = Not Assessed, I = Independent, DC = Modified Independent, Sup = Supervised, Set up = Physical Assistance for Set-up Only, Min = Minimal Assistance, Mod = Moderate Assistance, Max = Maximal assistance; Dep = Dependent; AROM = Active Range of Motion; PROM = Passive Range of Motion; MMT = Manual Muscle Test [facility] 11-22-2022 Note OCCUPATIONAL THERAPY PROGRESS SUMMARY Patient seen from 10:18AM to 10:43AM on 4E unit for 25 minute treatment. SUBJECTIVE: How did I get so luis armando? OBJECTIVE: Pain: 0/10 Appearance/Behavior: Upon arrival, pt was supine in bed. Pleasant and cooperative. Zapien. Cognition: A AND O x3 UE Status: WFL Self Care: Assistance Level NA Dep Max Mod Min CG CS DS DC I Set-Up Cues Comment Feeding x Food tray Grooming/ Hygiene x Washed face Bathing: Upper Body x Anticipates Bathing: Lower Body x Anticipates Dressing: Upper Body x To don gown Dressing: Lower Body x Adjusted pants over hips in standing Toileting x Zapien; able to perform his hygiene in standing after a bowel movement Toilet Transfers x On/off toilet with grab bars Bed Transfer x Sit EOB to stand via RW. Ambulated to/from bathroom via RW Bed Mobility x Supine to sit EOB Patient was left seated in bedside chair with chair alarm activated. Call light in reach. Instructed pt to call nursing for assist back into bed; pt verbalized understanding. Endurance for Self Care: Good Patient/Family Education: Discussed role of OT. 6 Clicks Daily Activity OT 11/22/2022 Help from another person Eating meals 4 Help from another person taking care of personal grooming 3 Help from another person bathing 3 Help from another person putting on and taking off regular upper body clothing 3 Help from another person putting on and taking off regular lower body clothing 3 Help from another person toileting 3 OT 6 Clicks Score 19 6 Click Score Guidelines: 1 - Unable = Total/Dependent Assist 2 - A lot = Max/Moderate Assist 3 - A little = Minimum/Contact Guard Assist/Supervision 4 - Non = Modified Van Zandt/Independent ASSESSMENT: Patient continues to demonstrate impaired cognition and lives alone without available assistance. Recommend further therapy services in a Skilled Rehab Setting once medically cleared. Will continue to follow patient while in hospital as appropriate. Revised LTG: ONGOING unless indicated Patient will dress upper body with Contact Guard MET Patient will dress lower body with Close supervision Patient will perform bed mobility with Distant supervision Patient will perform bathing with Close supervision Patient will perform toileting with Distant supervision Patient will perform bed transfers with Distant supervision Patient will perform commode transfers with Distant supervision PLAN: Continue with Plan as per Initial Evaluation. AUDI Pineda NA = Not Assessed, I = Independent, DC = Modified Independent, Sup = Supervised, Set up = Physical Assistance for Set-up Only, Min = Minimal Assistance, Mod = Moderate Assistance, Max = Max assistance; Dep = Dependent; AROM = Active Range of Motion;PROM=Passive Range of Motion; MMT = Manual Muscle Test; Shld= Shoulder; Add = Adduction; Abd = Abduction [facility] System 11-20-2022 Note Art Therapy Note Referral received. Chart reviewed, history noted. Thank you. Patient identified by Verbalizing name Date/Time: 11/20/2022 at 1125 to 1135 Time Spent: 10 minutes Narrative Note: Art Therapist (AT) entered room to offer patient art therapy support. AT found patient in bedside recliner with feet elevated. Patient appeared to be resting with eyes closed. Pt opened eyes after AT called pt name several times. Patient calm and pleasant. Patient declined art experience at this time. Patient did not engage art materials. AT provided pt with verbal intervention. Patient shared that he was feeling better. Pt did not recall AT previous visit. Patient and AT discussed possible art experiences at later visit. Patient stated he was agreeable for AT to return. Plan: Art therapy will follow patient focusing on Art Plan List: increasing autonomy and sense of control, improving overall mood, and enhancing quality of life Patient will be seen 1-2 times per week. Please refer to Art Therapy flowsheet for more data. Cinthya Padilla MA, ATR-BC [facility] 11-19-2022 Note SPEECH-MARKET PRESIDENT [facility] ACUTE TREATMENT NOTE Referral received, chart reviewed and history is noted. Time In: 1000 Time Out: 1025 Session Duration: 25 Patient identified by patient/armband stating name and date of . SUBJECTIVE: Patient subjective/goals: I'll take a cup of coffee Pain:Denies Scale (if yes): 0/10 Location: OBJECTIVE: Swallowing: - Room air - Upper and lower dentures Other Consistencies Presented: - Thin liquids - Soft solids - Regular solids Oral Phase: - Intact bilabial seal; without anterior spillage - Timely oral transit without obvious oral holding - Prolonged mastication of regular solids - No oral residuals Pharyngeal Phase: - No evidence of airway compromise w/ oral intake - Patient denies dysphagia complaints - XR CHEST 11/06/2022 FINDINGS: Lines, tubes, and devices: None. Lungs and pleura: No focal pulmonary consolidation, effusion or pneumothorax. Cardiomediastinal silhouette: Tortuosity of the aorta. Implanted dual lead cardiac device with lead tips projecting in the right atrial appendage and right ventricle. Musculoskeletal: Unremarkable. IMPRESSION: 1. No acute cardiopulmonary abnormality identified. 2. Tortuosity of the aorta with implanted dual lead cardiac device. ASSESSMENT: Patient continues to tolerate diet without dysphagia concerns. Review of chest imaging do not demonstrate any indication for aspiration. Given adequate tolerance across two treatment sessions, further acute speech therapy is no longer indicated. Please re-consult speech therapy if new concerns arise. PLAN: - Further acute speech therapy not clinically indicated Goals: The patient will consume Dysphagia level 2 mechanical soft solids and thin liquid diet utilizing small bites/sips and slow rate in 8/10 trials without s/s of airway compromise 100% of the time. MET The patient/caregiver/family will demonstrate adequate return of knowledge of all compensatory strategy/instruction to effectively assist the patient in immediate safety with oral intake and swallowing within cognitive limits. MET Recommendations: - Continue dysphagia level 2 mechanical soft solids and thin liquids - Watch for pocketing - OOB to chair for meals - Provide supervision/assistance with meals given cognitive impairments - May require downgrade to dysphagia level 1 pureed solids if prolonged mastication times are noted with dysphagia level 2 mechanical soft solids - Oral care TID with standard toothbrush and paste Grant Tate CCC-CITY COUNCIL MEMBER Speech-Language Pathologist Pager: [phone] [facility] 11-18-2022 Note OCCUPATIONAL THERAPY PROGRESS SUMMARY Patient seen from 11:32AM to 11:46AM on 4E unit for 14 minute treatment. SUBJECTIVE: What's your name? OBJECTIVE: Pain: 0/10 Appearance/Behavior: Upon arrival, pt was seated in bedside chair. Sitter present. Pleasant and cooperative. Zapien, saleem speech. Cognition: Oriented to person and hospital. Pt reports September 2001. UE Status: WFL Self Care: Assistance Level NA Dep Max Mod Min CG CS DS DC I Set-Up Cues Comment Feeding x Food tray Grooming/ Hygiene x Washed face in standing Bathing: Upper Body x Anticipates Bathing: Lower Body x Anticipates Dressing: Upper Body x Adjusted gown Dressing: Lower Body x Adjusting pants over hips Toileting x Zapien Toilet Transfers x On/off toilet Bed Transfer x Sit to stand via RW. Ambulated household distances via RW; cued to stay inside walker Bed Mobility Patient was left seated in bedside chair with lunch tray. Sitter present. Call light in reach. Instructed pt to call nursing for assist back into bed; pt verbalized understanding. Endurance for Self Care: Good Patient/Family Education: Educated pt on safe walker techniques. 6 Clicks Daily Activity OT 11/18/2022 Help from another person Eating meals 4 Help from another person taking care of personal grooming 3 Help from another person bathing 3 Help from another person putting on and taking off regular upper body clothing 3 Help from another person putting on and taking off regular lower body clothing 3 Help from another person toileting 3 OT 6 Clicks Score 19 6 Click Score Guidelines: 1 - Unable = Total/Dependent Assist 2 - A lot = Max/Moderate Assist 3 - A little = Minimum/Contact Guard Assist/Supervision 4 - Non = Modified Van Zandt/Independent ASSESSMENT: Patient continues to demonstrate impaired cognition and lives alone without available assistance. Recommend further therapy services in a Skilled Rehab Setting once medically cleared. Will continue to follow patient while in hospital as appropriate. Clinical Data Research Goals: Pt has met all OT goals; will discuss changing goals to distant supervision. Patient will dress upper body with DS Patient will dress lower body with Close supervision Patient will perform bed mobility with Close supervision Patient will perform bathing with Close supervision Patient will perform toileting with Close supervision Patient will perform bed transfers with Close supervision Patient will perform commode transfers with Close supervision Revised LTG: Patient will dress upper body with Contact Guard Patient will dress lower body with Close supervision Patient will perform bed mobility with Distant supervision Patient will perform bathing with Close supervision Patient will perform toileting with Distant supervision Patient will perform bed transfers with Distant supervision Patient will perform commode transfers with Distant supervision PLAN: Continue with Plan as per Initial Evaluation. AUDI Pineda Agree with above tx session conducted by AUDI. Updated goals. Smitha Walters, OTR/L NA = Not Assessed, I = Independent, DC = Modified Independent, Sup = Supervised, Set up = Physical Assistance for Set-up Only, Min = Minimal Assistance, Mod = Moderate Assistance, Max = Max assistance; Dep = Dependent; AROM = Active Range of Motion;PROM=Passive Range of Motion; MMT = Manual Muscle Test; Shld= Shoulder; Add = Adduction; Abd = Abduction [facility] 11-18-2022 Note PHYSICAL THERAPY PRO EMELY SUMMARY Patient seen from 1132 am to 1146 am on 4E unit for 14 minute treatment. SUBJECTIVE: Patient Subjective/Goals: I will walk how I want to. Nice to meet you. (Pt did not remember meeting prior to today's session). OBJECTIVE: Appearance: Pt sitting up in bed, hep lock IV, zapien catheter, sitter preset in room. Behavior: agreeable to therapy, A AND Ox2, pleasant, slightly confused. Pain: Site/Location: n/a; Pain Scale: 0/10 Pain Relief Interventions Implemented: None required; No pain at this time Mobility NA Dep Max Mod Min CG CS DS DC I Comment Transfers x Pt completed all transfers with safe technique and good body mechanics. Sit to/from stand x Walking on level surface x 100 feet x3 with rolling walker Gait Analysis: Pt holds RW too far forward, did not respond to max cueing. Pt looks down at feet when walking, pt did look up when cued to do so. Pt has increased yraiel and decreased heel strike with increased lateral sway in RW. No LOB or reports of dizziness and/or lightheadedness. Stand to sit x Functional Endurance: adequate. Sitting Balance: Static:good Dynamic:good Standing Balance: Static: good with assistive device rolling walker Dynamic:good with assistive device rolling walker Patient/Family Education: Instructed Patient in roles of therapy. Patient up in chair with call light in reach. Sitter present in room when PT/OT team left. DME: With Patients permission ordered no equipment via [employer] Order. If any questions contact [facility] DME Provider at [phone]. 6 Clicks Basic Mobility PT 11/18/2022 Difficulty turning over in bed 3 Difficulty sitting down and standing up from a chair with arms 4 Difficulty moving from lying on back to sitting on the side of the bed 3 Help from another person moving to and from bed to a chair 3 Help from another person to walk in hospital room 4 Help from another person climbing 3-5 steps with a railing 3 PT 6 Clicks Score 20 6 Click Score Guidelines: 1 - Total = Requires total assistance, or cannot do at all. 2 - A lot = Requires a lot of help (maximun to moderate assistance) Can use assistive devices. 3 - A little = Requires a little help (supervision, minimal assistance) Can use assistive devices. 4 - None = Does not require any help and does the activity independently. Can use assistive devices. ASSESSMENT: Pt physical strength and endurance continue to improve, however cognitive function continues to be impaired with some memory loss and loss of orientation to date. Recommend further therapy services in a Assisted Setting once medically cleared. Will continue to follow patient while in hospital as appropriate. Goals: ONGOING Patient will achieve acceptable level of pain control to allow participation in therapy. Patient will increase bed mobility to independent Patient will perform sit to/from stand transfer bed to/from chair with rolling walker with modified independent Patient will ambulate 50 feet with rolling walker with close supervision Patient will increase ROM/Strength/Endurance/Balance to allow for above goals. Patient/Family independent with exercise program/precautions. PLAN: Will follow established Plan of Care Narciso Ponce, LILY Blakely, DIANETIC COUNSELOR Read and agreed with students' documentation above. NA = Not Assessed, I = Independent, DC = Modified Independent, Sup = Supervised, Set up = Physical Assistance for Set-up Only, Min = Minimal Assistance, Mod = Moderate Assistance, Max = Maximal assistance; Dep = Dependent; AROM = Active Range of Motion; PROM = Passive Range of Motion; MMT = Manual Muscle Test [facility] 11-16-2022 Note SPEECH-MARKET PRESIDENT [facility] ACUTE TREATMENT NOTE [id number] Referral received, chart reviewed and history is noted. Time In: 1146 Time Out: 1200 Session Duration: 14 minutes Patient was identified by patient/armband stating name and date of . SUBJECTIVE: Patient subjective/goals: Patient is seen sitting upright in chair with sitter present. Meal tray in front of patient Pain:denies Scale (if yes): 0/10 Location: N.A OBJECTIVE:: Swallowing Current Diet: Dysphagia level 2 mechanical soft solids and thin liquids Seen with: salmon, mashed potatoes, broccoli, and thin liquid via straw -Oral phase: ---adequate mastication timing ---mild oral residuals on right side which is able to clear with liquid wash -Pharyngeal phase: ---no overt s/s of aspiration EDUCATION: -Patient education on general safe swallow strategies and use of liquid wash for oral clearance ASSESSMENT: Mr. Small is seen for follow-up monitoring of diet tolerance. He is currently on Dysphagia level 2 mechanical soft solids and thin liquids. Patient is tolerating diet with no overt s/s of aspiration. Mild oral residuals are noted with soft solids however is able to clear with liquid wash. ST to f/u 1x then d/c if continuing to tolerate diet and there is no change in respiratory changes. PLAN: -F/u 1x then d/c GOALS: The patient will consume Dysphagia level 2 mechanical soft solids and thin liquid diet utilizing small bites/sips and slow rate in 8/10 trials without s/s of airway compromise 100% of the time. (Progressing, continue) The patient/caregiver/family will demonstrate adequate return of knowledge of all compensatory strategy/instruction to effectively assist the patient in immediate safety with oral intake and swallowing. (progressing, continue) Recommendations: - Continue dysphagia level 2 mechanical soft solids and thin liquids - Watch for pocketing - May require downgrade to dysphagia level 1 pureed solids if prolonged mastication times are noted with dysphagia level 2 mechanical soft solids - Speech to follow 1-3x while inpatient for diet tolerance - OOB to chair for meals - Oral care TID with standard toothbrush and paste - Provide supervision/assistance with meals given cognitive impairments Kassie Flowers M.A., CCC-CITY COUNCIL MEMBER, CBIS Speech-Language Pathologist [id number] (office #) [facility] 11-15-2022 Note Music Therapy Note Referral Received. Chart reviewed; history noted. Thank you. Patient Identified by Verbalizing name Narrative Note: Date/Time: 11/15/22 at 12:24-1:00 pm. Time spent: 36 minutes. Music Therapist (MT) entered room for introduction of service, rapport building, and initial assessment, found patient sitting in chair with eyes open, eating lunch, displaying a appropriate affect, with sitter present in room. MT verbally introduced self to pt and explained role of therapy. Upon assessment, pt shared musical experiences including his father playing guitar and singing saying I listened. I didn't create the music . Pt indicated pain level of 0. Pt agreed to service. MT engaged pt in a Music listening intervention using live music (acoustic Guitar and voice) provided by MT for rapport and socialization. During active music making, pt observed intentionally moving neck/head to tempo of the music and connecting (via eye contact) with sitter displaying an agreeable affect. In between music making, pt reflected and reminisced about experience and jobs held in the [employer]. Pt was observed with increased interaction with staff and increased engagement during intervention. Pt shared his ownership of music and appreciation for old music . The MT provided space for pt to share, express and process personal feelings. The pt's affect was congruent with verbalizations and behaviors. The MT listened empathetically and validated the pt's experiences and feelings. The MT used pt preferred music to validate pt's comments. Session ended so pt could finish eating his dessert from lunch. Pt agreeable for MT to return. MT will continue to follow. Goals Addressed: Improved neurologic recovery as evidenced by: increased interaction with family/visitor/therapist/staff increased comments/behavioral changes in response to surrounding increased engagement Enhanced autonomy and/or sense of control as evidenced by: increased ownership of task/behavior Enhanced self-expression as evidenced by: increased opportunities in reflection increased opportunities in reminiscing Music Intervention: Music listening Plan: Music Therapy will follow throughout hospitalization/ICU stay. Please refer to Music Therapy Inpatient flowsheet for more data. Domonique Staton MA, [place]- Music Therapist, [place] [facility] [employer] Pager [phone] [email or web address] [facility] 11-15-2022 Note PHYSICAL THERAPY PRO EMELY SUMMARY Patient seen from 1044 to 1107 on GC 4E unit for 23 minute treatment. SUBJECTIVE: Patient Subjective/Goals: My name is a secret when asked patient name/ - wrist bracelet in room confirmed pt identity prior to treatment OBJECTIVE: Appearance: Pt seated in chair with sitter in room. Pt with glasses on, heplock noted with dayron wrap dressing around region and zapien catheter. Behavior: Pleasant Pain: Site/Location: N/A; Pain Scale: 0/10 Pain Relief Interventions Implemented: None required; No pain at this time Exercises X 20 reps bilateral heel/toe raises X 15 reps bilateral LAQ X 15 reps bilateral marches X 15 reps bilateral hip abduction -pt needing frequent cues to slow exercises due to tendency to use momentum Mobility NA Dep Max Mod Min CG CS DS DC I Comment Sit to/from stand x x Cues for hand placement to come to stand at RW from chair. BUE assist. Walking on level surface x x 100 feet x 2 trials Gait Analysis: slow yariel, decreased step length, cues for hands on manager inventory and inside RW as well as safety with turning. Stand to sit x x Cues for hand placement and controlled descent to chair. BUE assist to complete for 1st trial. Pt not using UE assist for 2nd trial with decreased eccentric control noted with this transfer. Functional Endurance: Fair. Pt denies dizziness nor lightheadedness. Sitting Balance: Static:good Dynamic:fair Standing Balance: Static: fair with assistive device rolling walker Dynamic:fair with assistive device rolling walker Patient/Family Education: Instructed Patient in roles of therapy. Purpose of exercises. Importance of safety with mobility and walker use. Patient up in chair with call light in reach. Sitter in room. DME: With Patients permission ordered no equipment via [employer] Order. If any questions contact [facility] DME Provider at [phone]. 6 Clicks Basic Mobility PT 11/15/2022 Difficulty turning over in bed 3 Difficulty sitting down and standing up from a chair with arms 3 Difficulty moving from lying on back to sitting on the side of the bed 3 Help from another person moving to and from bed to a chair 3 Help from another person to walk in hospital room 3 Help from another person climbing 3-5 steps with a railing 2 PT 6 Clicks Score 17 6 Click Score Guidelines: 1 - Total = Requires total assistance, or cannot do at all. 2 - A lot = Requires a lot of help (maximun to moderate assistance) Can use assistive devices. 3 - A little = Requires a little help (supervision, minimal assistance) Can use assistive devices. 4 - None = Does not require any help and does the activity independently. Can use assistive devices. ASSESSMENT: Patient participating in exercises, transfer training and gait training with RW this session with patient demonstrating improved ambulatory distances this date and ability to complete exercises this date. Patient demonstrates decreased safety awareness needing intermittent verbal cues for safety with walker and control with transfers. Recommend further therapy services in a Assisted Setting once medically cleared. Will continue to follow patient while in hospital as appropriate. Goals: ONGOING Patient will achieve acceptable level of pain control to allow participation in therapy. Patient will increase bed mobility to independent Patient will perform sit to/from stand transfer bed to/from chair with rolling walker with modified independent Patient will ambulate 50 feet with rolling walker with close supervision Patient will increase ROM/Strength/Endurance/Balance to allow for above goals. Patient/Family independent with exercise program/precautions. PLAN: Will follow established Plan of Care Luann Oakley , PT, DPT NA = Not Assessed, I = Independent, DC = Modified Independent, Sup = Supervised, Set up = Physical Assistance for Set-up Only, Min = Minimal Assistance, Mod = Moderate Assistance, Max = Maximal assistance; Dep = Dependent; AROM = Active Range of Motion; PROM = Passive Range of Motion; MMT = Manual Muscle Test [facility] [employer] [facility] 11-15-2022 Note Art Therapy Note Referral received. Chart reviewed, history noted. Thank you. Date/Time: 11/15/2022 at 1102 Narrative Note: Art Therapist (AT) attempted to see patient to offer art therapy service to patient. AT found conflict of service at time of visit. Will return and attempt again. Plan: Art therapy will follow patient focusing on Art Plan List: increasing autonomy and sense of control, enhancing positive coping strategies, and improving overall mood Patient will be seen 1-2 times per week. Please refer to Art Therapy flowsheet for more data. Cinthya Padilla MA, ATR-BC [facility] 11-15-2022 Note OCCUPATIONAL THERAPY PROGRESS SUMMARY Patient seen from 9:55AM to 10:18AM on 4E unit for 23 minute treatment. SUBJECTIVE: She won't stop knocking on the door while I'm pooping . Pt referring to the sitter. OBJECTIVE: Pain: 0/10 Appearance/Behavior: Upon arrival, pt was seated on toilet. Sitter. Zapien. Pleasant and cooperative. Cognition: Oriented to person and hospital. Pt reports November. UE Status: WFL Self Care: Assistance Level NA Dep Max Mod Min CG CS DS DC I Set-Up Cues Comment Feeding x Grooming/ Hygiene x Washed hands standing at sink; donned baseball hat Bathing: Upper Body x Anticipates Bathing: Lower Body x Anticipates Dressing: Upper Body x Tucked in gown into pants Dressing: Lower Body x Donned pants over hips Toileting x For hygiene and clothing management after a bowel movement Toilet Transfers x Off of toilet Bed Transfer x Ambulated around Bed Mobility x Patient was left seated in bedside chair with chair alarm activated and sitter present. Call light in reach. Instructed pt to call nursing for assist back into bed; pt verbalized understanding. Endurance for Self Care: Good Patient/Family Education: Discussed role of OT; discussed safety awareness. 6 Clicks Daily Activity OT 11/15/2022 Help from another person Eating meals 4 Help from another person taking care of personal grooming 3 Help from another person bathing 3 Help from another person putting on and taking off regular upper body clothing 3 Help from another person putting on and taking off regular lower body clothing 3 Help from another person toileting 3 OT 6 Clicks Score 19 6 Click Score Guidelines: 1 - Unable = Total/Dependent Assist 2 - A lot = Max/Moderate Assist 3 - A little = Minimum/Contact Guard Assist/Supervision 4 - Non = Modified Van Zandt/Independent ASSESSMENT: Recommend further therapy services in a Skilled Rehab Setting once medically cleared. Will continue to follow patient while in hospital as appropriate. Clinical Data Research Goals: ONGOING Patient will dress upper body with Contact Guard Patient will dress lower body with Close supervision Patient will perform bed mobility with Close supervision Patient will perform bathing with Close supervision Patient will perform toileting with Close supervision Patient will perform bed transfers with Close supervision Patient will perform commode transfers with Close supervision PLAN: Continue with Plan as per Initial Evaluation. AUDI Pineda NA = Not Assessed, I = Independent, DC = Modified Independent, Sup = Supervised, Set up = Physical Assistance for Set-up Only, Min = Minimal Assistance, Mod = Moderate Assistance, Max = Max assistance; Dep = Dependent; AROM = Active Range of Motion;PROM=Passive Range of Motion; MMT = Manual Muscle Test; Shld= Shoulder; Add = Adduction; Abd = Abduction [facility] 11-14-2022 Note Art Therapy Note Referral received. Chart reviewed, history noted. Thank you. Patient identified by With nurse Date/Time: 11/14/2022 at 1143 Narrative Note: Art Therapist (AT) entered room for follow up to offer patient art therapy service. AT found patient in bed, sleeping. Patient 1:1 sitter in room, sitter stated patient had just went to sleep. AT left patient to rest. Will return and attempt again. Plan: Art therapy will follow patient focusing on Art Plan List: increasing autonomy and sense of control, enhancing positive coping strategies, and improving overall mood Patient will be seen 1-2 times per week. Please refer to Art Therapy flowsheet for more data. Cinthya Padilla MA, ATR-BC [facility] 11-14-2022 Note DISCHARGE SUMMARY [facility] [address] [place], [place] [id number] Miquel Small Date of : 1935 86 year oldmale Attending Aidee Foster MD Date of Admission 11/06/2022 Date of Discharge 11/30/[address] [facility] DIVISION OF ACUTE CARE SURGERY FINAL DIAGNOSES: Hospital Problems as of 11/14/2022 * (Principal) Inguinal hernia, incarcerated Acute post-operative pain BPH (benign prostatic hyperplasia) Essential (primary) hypertension Parkinson's disease (HCC) Hypertrophic cardiomyopathy (HCC) PROCEDURES: 11/06/2022: Surgeon - Dr. Aidee Foster MD Left inguinal hernia repair with mesh DISCHARGE MEDICATIONS: There are no discharge medications for this patient. Current Facility-Administered Medications: valproate (DEPAKENE) 250 MG/5ML syrup, 250 mg, Oral, 4x Daily, Vivek Zacarias MD, 250 mg at 11/13/222122 melatonin tablet, 5 mg, Oral, At Bedtime, Vivek Zacarias MD, 5 mg at 11/13/222122 tamsulosin (FLOMAX) capsule, 0.4 mg, Oral, Daily, Jaci Willams MD, 0.4 mg at 11/13/22 0925 hydrOXYzine (ATARAX) 10 MG/5ML oral syrup, 25 mg, Oral, Q6H PRN, Vivek Zacarias MD, 25 mg at 11/10/22 0808 carbidopa-levodopa (SINEMET) 25-250 MG per tablet, 1 Tablet, Oral, 3x Daily, Anabel Meng PA-C, 1 Tablet at 11/13/222122 CARvedilol (COREG) tablet, 6.25 mg, Oral, 2x Daily, Anabel Meng PA-C, 6.25 mg at 11/13/222122 mirtazapine (REMERON) tablet, 7.5 mg, Oral, At Bedtime, Anabel Meng PA-C, 7.5 mg at 11/13/222122 sertraline (ZOLOFT) tablet, 100 mg, Oral, Daily, Anabel Meng PA-C, 100 mg at 11/13/22 0925 atorvastatin (LIPITOR) tablet, 20 mg, Oral, At Bedtime, Anabel Meng PA-C, 20 mg at 11/13/222122 rOPINIRole (REQUIP) tablet, 0.5 mg, Oral, 3x Daily, Anabel Meng PA-C, 0.5 mg at 11/13/222122 senna (SENOKOT) tablet, 8.6 mg, Oral, At Bedtime, Ana Salinas MD, 8.6 mg at 11/13/222122 acetaminophen (TYLENOL) tablet, 650 mg, Oral, Every 4 hours, Ana Salinas MD, 650 mg at 11/13/222122 enoxaparin (LOVENOX) 40 MG/0.4ML injection 40 mg, 40 mg, Subcutaneous, Daily, Ana Salinas MD, 40 mg at 11/13/22924 REASON FOR HOSPITALIZATION: Mr. Miquel Small is a 86 year old male with PMHx of Parkinson's dementia, R inguinal hernia, HTN, V-tach s/p AICD (initial in 2012, last replaced in 2018), BPH, HEMA who was life-flighted to [facility] for urgent surgical treatment of a large, acutely incarcerated (L) inguinal hernia. He has a multi-year history of (L) inguinal hernia (walnut sized), acutely worsening of LLQ pain in past 24-36 hours. He denies any dysuria, fevers, or chills. Surgeons in [place] attempted manual reduction without success. SIGNIFICANT FINDINGS: Left incarcerated inguinal hernia Incidental Findings none HOSPITAL COURSE: 11/06: Life flight from [place] for incarcerated left inguinal hernia. 11/06: L inguinal hernia repair with mesh by Dr. Foster. 11/07: Patient hyperkinetic at times and puling medical devices requiring bedside sitter. 11/08: Ongoing sitter requirements. [place] slip obtained. Music and Art tx consulted.Difficulty swallowing per sitter. 11/09: Ongoing sitter requirements. Zapien replaced for urinary retention. [employer] MEMBER consult with recs for mechanical soft and thin liquids. 11/10: Zapien with decreased, pink tinged urine output overnight. Bladder scan showing 350cc. Zapien flushed and advanced with good return. 11/11: No acute events. Medically cleared for discharge to SNF. 11/12: Patient removed Zapien this AM. 11/13: Patient with continued urinary retention. 11/15: ALY, insurance rejected SNF 11/16: Appeal for SNF re-started 11/17: ALY, pending appeal 11/18: Hematuria noted from Zapien, possibly from previous traumatic self-removal of urinary catheter vs UTI. Urology consulted. 11/19-11/20: Continuing to await insurance appeal. Started on cipro 11/21-11/24 - Awaiting insurance approval; zapien removed 11/25: Cipro dose ended for UTI 11/26-11/27: Noted to have increase abdominal distention. CT AP showing residual 2.8 cm left inguinal hernia and possible postop seroma 11/28-11/29: No acute events 11/30: Patient noted to have a reducible umbilical hernia. Successfully reduced at bedside. No further recurrence On 11/30 patient was hemodynamically and clinically stable with no signs of indirect hernia recurrence albeit an asymptomatic newly found direct hernia Without bowel involvement. For this reason patient was deemed suitable for discharge to a SNF Relevant Inpatient Imaging: XR CHEST 11/06/2022 No acute cardiopulmonary process. Tortuosity of the aorta with implanted dual lead cardiac device. CT AP 11/27/22 1. Status post left inguinal hernia repair with residual 2.8 cm left inguinal hernia. There is an associated low-density partially visualized 6.5 cm multiloculated fluid collection which is likely external to the hernia, however this is not definitively assessed. This likely represents a postsurgical seroma, (more content not included)... [facility] 11-13-2022 Note Art Therapy Note Referral received. Chart reviewed, history noted. Thank you. Patient identified by Verbalizing name Date/Time: 11/13/2022 at 1432 to 1439 Time Spent: 7 minutes Narrative Note: Art Therapist (AT) entered room to see patient for initial assessment and introduction to art therapy service. AT found patient sitting in bedside recliner with sitter present in room. AT introduced art therapy service to patient and discussed art making for patient support. Patient declined at this time. Patient agreeable to AT to return and stated he might like to try art at another time. Will follow up. Plan: Art therapy will follow patient focusing on Art Plan List: increasing autonomy and sense of control, enhancing positive coping strategies, and improving overall mood Patient will be seen 1-2 times per week. Please refer to Art Therapy flowsheet for more data. Cinthya Padilla MA, ATR-BC [facility] 11-13-2022 Note [facility] is [facility] new [facility] and able to accept with sitter at dc. Pt must remain restraint free for 24hrs prior to SNF dc. SW sent updates to SNF- Precert to be initiated this date. Altagracia Munoz, CARDIAC CATH TECH, [employer] MEMBER [phone] [facility] 11-13-2022 Note OCCUPATIONAL THERAPY PROGRESS SUMMARY Patient seen from 13:24 to 13:44 on 4E unit for 20 minute treatment. SUBJECTIVE: Patient Subjective/Goals: Well, I get my days mixed up. OBJECTIVE: Pain: No pain reported or noted Pain Relief Interventions Implemented: None required; No pain at this time Appearance/Behavior: Ambulating out of room with sitter, hospital gown on front and backside, pants, hospital socks, hep-locked IV. Cognition: Oriented to self, hospital, month. 1 step commands with cues. UE Status: WFL Self Care: Assistance Level NA Dep Max Mod Min CG CS DS DC I Set-Up Cues Comment Feeding x Anticipate Grooming/ Hygiene x x x Standing at sink to wash face Bathing: Upper Body x x x Assist for thoroughness in standing Bathing: Lower Body x Anticipate Dressing: Upper Body x x x In standing to doff/don hospital gown on front and backside and tuck into pants Dressing: Lower Body x Anticipate Toileting x Anticipate assist for thoroughness Patient denied need to use toilet at this time Toilet Transfers x Bed Transfer x x x Ambulates from bathroom to chair Cues for hand placement on arm rests prior to sitting down Bed Mobility x OOB at start of session Ambulation x x x Around unit with wheeled walker No dizziness or SOB reported or noted Up in chair at end of session with call light in reach, chair alarm intact, and sitter present. Endurance for Self Care: Good, patient tolerated 20 minute treatment session with no rest breaks. Patient/Family Education: Educated patient on importance of participating in self-care during hospital stay. Educated patient on safe transfers. DME: With Patients permission ordered no equipment via Fast[employer] Order. If any questions contact [facility] DME Provider at [phone]. 6 Clicks Daily Activity OT 11/13/2022 Help from another person Eating meals 4 Help from another person taking care of personal grooming 3 Help from another person bathing 3 Help from another person putting on and taking off regular upper body clothing 3 Help from another person putting on and taking off regular lower body clothing 3 Help from another person toileting 3 OT 6 Clicks Score 19 6 Click Score Guidelines: 1 - Unable = Total/Dependent Assist 2 - A lot = Max/Moderate Assist 3 - A little = Minimum/Contact Guard Assist/Supervision 4 - Non = Modified [place]/Independent ASSESSMENT: Recommend further therapy services in a Skilled Rehab Setting once medically cleared. Will continue to follow patient while in hospital as appropriate. Skilled Nursing Goals: ONGOING Patient will dress upper body with Contact Guard Patient will dress lower body with Close supervision Patient will perform bed mobility with Close supervision Patient will perform bathing with Close supervision Patient will perform toileting with Close supervision Patient will perform bed transfers with Close supervision Patient will perform commode transfers with Close supervision PLAN: Continue with Plan as per Initial Evaluation. Codie Jimenez, OTR/L NA = Not Assessed, I = Independent, DC = Modified Independent, Sup = Supervised, Set up = Physical Assistance for Set-up Only, Min = Minimal Assistance, Mod = Moderate Assistance, Max = Max assistance; Dep = Dependent; AROM = Active Range of Motion;PROM=Passive Range of Motion; MMT = Manual Muscle Test; Shld= Shoulder; Add = Adduction; Abd = Abduction [facility] 11-13-2022 Note PHYSICAL THERAPY PRO EMELY SUMMARY Patient seen from 945 am to 958 am on 4E unit for 13 minute treatment. SUBJECTIVE: Patient Subjective/Goals: I guess I am not having a lazy day. Why am I here? OBJECTIVE: Appearance: Pt sitting up in chair with sitter by windows. Hep lock IV. Behavior: confused, oriented to self but not today's date or day of the week, pleasant. Pain: Site/Location: n/a; Pain Scale: 0/10 Pain Relief Interventions Implemented: None required; No pain at this time Mobility NA Dep Max Mod Min CG CS DS DC I Comment Transfers x Pt completed all transfers with safe technique and good body mechanics. Sit to/from stand x Walking on level surface x 50 feet x4, twice with rolling walker Gait Analysis: Pt had difficulty standing up straight, likely due to a combination of hip and lumbar extensor weakness. Pt also had to be cued to walk closer to the rolling walker and keep his head up. Overall heel strike and yareil are diminished. No LOB or reports of dizziness and/or lightheadedness. Standing rest break taken 1x. Stand to sit x Functional Endurance: Impaired. Sitting Balance: Static:good Dynamic:good Standing Balance: Static: good with assistive device rolling walker Dynamic:fair with assistive device rolling walker Patient/Family Education: Instructed Patient in roles of therapy. Patient up in chair with call light in reach. Sitter chair side. DME: With Patients permission ordered no equipment via Fast[employer] Order. If any questions contact [facility] DME Provider at [phone]. 6 Clicks Basic Mobility PT 11/12/2022 Difficulty turning over in bed 3 Difficulty sitting down and standing up from a chair with arms 3 Difficulty moving from lying on back to sitting on the side of the bed 3 Help from another person moving to and from bed to a chair 3 Help from another person to walk in hospital room 3 Help from another person climbing 3-5 steps with a railing 2 PT 6 Clicks Score 17 6 Click Score Guidelines: 1 - Total = Requires total assistance, or cannot do at all. 2 - A lot = Requires a lot of help (maximun to moderate assistance) Can use assistive devices. 3 - A little = Requires a little help (supervision, minimal assistance) Can use assistive devices. 4 - None = Does not require any help and does the activity independently. Can use assistive devices. ASSESSMENT: Pt slightly impulsive with some memory deficits as to why he was in the hospital, pt safety still in question. Recommend further therapy services in a Assisted Setting once medically cleared. Will continue to follow patient while in hospital as appropriate. Revised Goals: Patient will achieve acceptable level of pain control to allow participation in therapy. Patient will increase bed mobility to independent Patient will perform sit to/from stand transfer bed to/from chair with rolling walker with modified independent Patient will ambulate 50 feet with rolling walker with close supervision Patient will increase ROM/Strength/Endurance/Balance to allow for above goals. Patient/Family independent with exercise program/precautions. PLAN: Will follow established Plan of Care Narciso Ponce, LILY Blakely, DIANETIC COUNSELOR Read and agreed with students' documentation above. NA = Not Assessed, I = Independent, DC = Modified Independent, Sup = Supervised, Set up = Physical Assistance for Set-up Only, Min = Minimal Assistance, Mod = Moderate Assistance, Max = Maximal assistance; Dep = Dependent; AROM = Active Range of Motion; PROM = Passive Range of Motion; MMT = Manual Muscle Test [facility] 11-12-2022 Note PHYSICAL THERAPY PRO EMELY SUMMARY Patient seen from 1045 to 1110 on GC4E unit for 25 minute treatment. SUBJECTIVE: Patient Subjective/Goals: Lazy - when asked how he is feeling OBJECTIVE: Appearance: Pt OOBTC, glasses, hep locked, sitter at bedside Behavior: pleasantly confused Oriented x name, states place as library with choices and date as Oct 2023 Pain: Site/Location: none; Pain Scale: 0/10 Pain Relief Interventions Implemented: None required; No pain at this time Mobility NA Dep Max Mod Min CG CS DS DC I Comment Sit to/from stand x Cues for hand placement to come to stand at RW Walking on level surface x 50 feet x4 with seated rest break with rolling walker Gait Analysis: slow yariel, decreased step length, cues for hands on manager inventory and inside RW Stand to sit x Cues for hand placement and controlled descent to chair Functional Endurance: Impaired BP 91/55 (BP Location: right arm) Pulse 74 Temp 97.9 ???F (36.6 ???C) (Oral) Resp 18 Wt 209 lb 7 oz (95 kg) SpO2 98% Sitting Balance: Static:good Dynamic:fair Standing Balance: Static: fair with assistive device rolling walker Dynamic:fair with assistive device rolling walker Patient/Family Education: Instructed Patient in roles, goals, treatment plan: demonstrated good verbal understanding. Patient up in chair with call light in reach. Chair alarm intact. Sitter at bedside DME: With Patients permission ordered no equipment via Fast[employer] Order. If any questions contact [facility] DME Provider at [phone]. 6 Clicks Basic Mobility PT 11/12/2022 Difficulty turning over in bed 3 Difficulty sitting down and standing up from a chair with arms 3 Difficulty moving from lying on back to sitting on the side of the bed 3 Help from another person moving to and from bed to a chair 3 Help from another person to walk in hospital room 3 Help from another person climbing 3-5 steps with a railing 2 PT 6 Clicks Score 17 6 Click Score Guidelines: 1 - Total = Requires total assistance, or cannot do at all. 2 - A lot = Requires a lot of help (maximun to moderate assistance) Can use assistive devices. 3 - A little = Requires a little help (supervision, minimal assistance) Can use assistive devices. 4 - None = Does not require any help and does the activity independently. Can use assistive devices. ASSESSMENT: Recommend further therapy services in a Assisted Setting once medically cleared. Will continue to follow patient while in hospital as appropriate. Revised Goals: Patient will achieve acceptable level of pain control to allow participation in therapy. Patient will increase bed mobility to independent Patient will perform sit to/from stand transfer bed to/from chair with rolling walker with modified independent Patient will ambulate 50 feet with rolling walker with close supervision Patient will increase ROM/Strength/Endurance/Balance to allow for above goals. Patient/Family independent with exercise program/precautions. PLAN: Will follow established Plan of Care Shadia Martinez, PT , DPT, CLT Please secure chat with questions NA = Not Assessed, I = Independent, DC = Modified Independent, Sup = Supervised, Set up = Physical Assistance for Set-up Only, Min = Minimal Assistance, Mod = Moderate Assistance, Max = Maximal assistance; Dep = Dependent; AROM = Active Range of Motion; PROM = Passive Range of Motion; MMT = Manual Muscle Test [facility] 11-09-2022 Note SPEECH MARKET PRESIDENT OLOGY BEDSIDE SWALLOW EVALUATION: Referral received, chart reviewed and history is noted. Time In: 1100 Time Out: 1120 Session Duration: 20 minutes Patient identified by patient/armband stating name and date of . Evaluation Location: 4th floor surgical stepdown Date of Onset: 11/06/2022 Reason for consult: Concern for intermittent choking episodes while eating History/Diagnosis: Mr. Miquel Small is a 86 year old male with PMHx of Parkinson's dementia, R inguinal hernia, HTN, V-tach s/p AICD (initial in 2012, last replaced in 2018), BPH, HEMA who was life-flighted to [facility] for urgent surgical treatment of a large, acutely incarcerated (L) inguinal hernia. He has a multi-year history of (L) inguinal hernia (walnut sized), acutely worsening of LLQ pain in past 24-36 hours. Hospital Course/Procedures: 11/05: Life flight from [place] for incarcerated left inguinal hernia. 11/06: L inguinal hernia repair with mesh by Dr. Foster. 11/07: Patient hyperkinetic at times and puling medical devices requiring bedside sitter. Precautions: Full code; Fall Imaging: XR CHEST 11/06/2022: IMPRESSION: 1. No acute cardiopulmonary abnormality identified. 2. Tortuosity of the aorta with implanted dual lead cardiac device. Prior Level of Functioning: Does not answer prior level of functioning questioning this date. SUBJECTIVE: Patient subjective/goals: I only eat soft cookies, I won't eat that hard thing. Referring to Belkys Kidd. Pain: Denies Scale (if yes): 0/10 Location: N/A OBJECTIVE: Current diet: Dysphagia level 2 mechanical soft solids and thin liquids Dysphagia history: None reported or present per chart review; patient does report self liming solids d/t mastication difficulty. SpO2: 100% Temperature: 97.4 CXR 11/06/2022: IMPRESSION: No acute cardiopulmonary abnormality identified. Oxygen Requirements: Room air Other Consistencies Presented: - Thin liquids - Pureed solids - Regular solids Oral Phase: - Intact bilabial seal; without anterior spillage - Prolonged mastication (repetitive mastication; with over manipulation) - Appears to have prolonged oral transit time w/ oral holding of solids - Oral residuals noted with solids (requires verbal cueing from [employer]BER to clear) Pharyngeal Phase: - No evidence of airway compromise w/ oral intake ASSESSMENT: Impression: Miquel presents with oral phase impairments characterized by prolonged mastication and the presence of oral residual with trials of regular solids. No overt s/s of airway compromise observed across bedside swallowing assessment. Per discussion with sitter, patient had some intermittent coughing throughout meals yesterday. Given this report, will keep patient on speech therapy caseload to monitor tolerance. Given unremarkable bedside swallowing examination paired with no acute cardiopulmonary abnormality noted on recent chest imaging, will continue dysphagia level 2 mechanical soft solids and thin liquids. If patient presents with persistent oral holding, recommend downgrade to dysphagia level 1 pureed solids. PLAN: Treatment Modalities: Dysphagia Therapy; Patient Family Education; Compensatory Strategies Duration: Duration of acute therapy stay Frequency: 1-3x per week Goals: The patient will consume Dysphagia level 2 mechanical soft solids and thin liquid diet utilizing small bites/sips and slow rate in 8/10 trials without s/s of airway compromise 100% of the time. The patient/caregiver/family will demonstrate adequate return of knowledge of all compensatory strategy/instruction to effectively assist the patient in immediate safety with oral intake and swallowing. Recommendations: - Continue dysphagia level 2 mechanical soft solids and thin liquids - Watch for pocketing - May require downgrade to dysphagia level 1 pureed solids if prolonged mastication times are noted with dysphagia level 2 mechanical soft solids - Speech to follow 1-3x while inpatient for diet tolerance - OOB to chair for meals - Oral care TID with standard toothbrush and paste - Provide supervision/assistance with meals given cognitive impairments Grant Tate, [facility] Speech-Language Pathologist Pager: [phone] [facility] 11-08-2022 Note PHYSICAL THERAPY PRO EMELY SUMMARY Patient seen from 1124 to 1148 on GC4E unit for 24 minute treatment. SUBJECTIVE: Patient Subjective/Goals: Oh I didn't see it -runs into RW OBJECTIVE: Appearance: Pt sitting EOB, sitter, glasses, hep locked Behavior: confused, cooperative, impulsive Pain: Site/Location: none; Pain Scale: 0/10 Pain Relief Interventions Implemented: None required; No pain at this time Mobility NA Dep Max Mod Min CG CS DS DC I Comment Sit to/from stand x Cues for hand placement to come to stand at RW Walking on level surface x 50 feet x2 with rolling walker Gait Analysis: slow yariel, decreased step length, cues for hand placement on RW, cues for middle of RW and keeping RW on ground Stairs x 4 stairs with (B) rails and non recip pattern, cues for full foot on stairs, unsteady Stand to sit x Functional Endurance: Impaired BP 96/50 (BP Location: left arm) Pulse 71 Temp 98.9 ???F (37.2 ???C) (Oral) Resp 18 Wt 209 lb 7 oz (95 kg) SpO2 97% Sitting Balance: Static:good Dynamic:good Standing Balance: Static: fair with assistive device rolling walker Dynamic:fair with assistive device rolling walker Patient/Family Education: Instructed Patient in roles, goals, treatment plan: demonstrated good verbal understanding. Patient up in chair with call light in reach. Chair alarm intact. Sitter at bedside DME: With Patients permission ordered no equipment via [employer] Order. If any questions contact [facility] DME Provider at [phone]. 2 Clicks Basic Mobility PT 11/08/2022 Difficulty turning over in bed 3 Difficulty sitting down and standing up from a chair with arms 3 Difficulty moving from lying on back to sitting on the side of the bed 3 Help from another person moving to and from bed to a chair 3 Help from another person to walk in hospital room 3 Help from another person climbing 3-5 steps with a railing 2 PT 6 Clicks Score 17 6 Click Score Guidelines: 1 - Total = Requires total assistance, or cannot do at all. 2 - A lot = Requires a lot of help (maximun to moderate assistance) Can use assistive devices. 3 - A little = Requires a little help (supervision, minimal assistance) Can use assistive devices. 4 - None = Does not require any help and does the activity independently. Can use assistive devices. ASSESSMENT: Recommend further therapy services in a Assisted Setting once medically cleared. Will continue to follow patient while in hospital as appropriate. Revised Goals: Patient will achieve acceptable level of pain control to allow participation in therapy. Patient will increase bed mobility to independent Patient will perform sit to/from stand transfer bed to/from chair with rolling walker with modified independent Patient will ambulate 50 feet with rolling walker with close supervision Patient will increase ROM/Strength/Endurance/Balance to allow for above goals. Patient/Family independent with exercise program/precautions. PLAN: Will follow established Plan of Care Shadia Martinez, PT , DPT, CLT Please secure chat with questions NA = Not Assessed, I = Independent, DC = Modified Independent, Sup = Supervised, Set up = Physical Assistance for Set-up Only, Min = Minimal Assistance, Mod = Moderate Assistance, Max = Maximal assistance; Dep = Dependent; AROM = Active Range of Motion; PROM = Passive Range of Motion; MMT = Manual Muscle Test [facility] 11-08-2022 Note OCCUPATIONAL THERAPY PROGRESS SUMMARY Patient seen from 1125 to 1151 on unit for 26 minute treatment. SUBJECTIVE: Patient Subjective/Goals [facility], look at me OBJECTIVE: Pain: No pain reported or noted Pain Relief Interventions Implemented: None required; No pain at this time Appearance: Sitting EOB with hep-locked IV and sitter present. Behavior: Confused, pleasant, agreeable to therapy. Cognition: follows one step commands with cues. Oriented to self and hospital. Impulsive. Self Care: Assistance Level NA Dep Max Mod Min CG CS DS DC I Set-Up Cues Comment Feeding x Grooming/ Hygiene x Washing face, washing hair with shower cap and brushing hair. Assist to sequence tasks and complete. Bathing: Upper Body x Sponge bath UB with min A Bathing: Lower Body x Dressing: Upper Body x Dressing: Lower Body x To don pants Toileting x Toilet Transfers x Bed Transfer x Sit to stand, ambulated with use of RW, and CGA-min A. Pt with decreased motor planning skills, cues to redirect Bed Mobility x Endurance for Self Care: Impaired Patient/Family Education: Instructed Patient in roles of therapy. 6 Clicks Daily Activity OT 11/08/2022 Help from another person Eating meals 4 Help from another person taking care of personal grooming 3 Help from another person bathing 3 Help from another person putting on and taking off regular upper body clothing 3 Help from another person putting on and taking off regular lower body clothing 3 Help from another person toileting 3 OT 6 Clicks Score 19 6 Click Score Guidelines: 1 - Unable = Total/Dependent Assist 2 - A lot = Max/Moderate Assist 3 - A little = Minimum/Contact Guard Assist/Supervision 4 - Non = Modified Van [place]andt/Independent ASSESSMENT: Recommend further therapy services in a Skilled Rehab Setting once medically cleared. Will continue to follow patient while in hospital as appropriate. Clinical Data Research Goals: Patient will dress upper body with Contact Guard Patient will dress lower body with Close supervision Patient will perform bed mobility with Close supervision Patient will perform bathing with Close supervision Patient will perform toileting with Close supervision Patient will perform bed transfers with Close supervision Patient will perform commode transfers with Close supervision PLAN: Continue with Plan as per Initial Evaluation. Omayra GOOD, OTR/L [phone] NA = Not Assessed, I = Independent, DC = Modified Independent, Sup = Supervised, Set up = Physical Assistance for Set-up Only, Min = Minimal Assistance, Mod = Moderate Assistance, Max = Max assistance; Dep = Dependent; AROM = Active Range of Motion;PROM=Passive Range of Motion; MMT = Manual Muscle Test; Shld= Shoulder; Add = Adduction; Abd = Abduction [facility] 11-08-2022 Note Pt must be restraint/sitter-free for 24hrs prior to dc to accepting snf ([facility]) SW sent additional referrals to facilities with secure units. SW awaiting outcome of SNFs review. Altagracia Munoz, CARDIAC CATH TECH, [employer] MEMBER [phone] [facility] 11-07-2022 Note PHYSICAL THERAPY PRO EMELY SUMMARY Patient seen from 11:14 am to 11:22 am on 9W unit for 8 minute treatment. SUBJECTIVE: Patient Subjective/Goals: We can try that . Re: walking OBJECTIVE: Appearance: Sitting in bedside chair at onset playing with activity apron, IV, ernie zapien sitter present. Behavior: Alert, confused, fidgety/restless, mild tremors, impulsive, pleasant, cooperative and agreeable to treatment. Oriented x self, hospital only Pain: Site/Location: n/a; Pain Scale: 0/10 Pain Relief Interventions Implemented: None required; No pain at this time Mobility NA Dep Max Mod Min CG CS DS DC I Comment Sit to/from stand x To wheel walker. Cues for technique. Walking on level surface x 12'x2 with wheel walker. Pt ambulated with decreased yariel, small shuffled steps, NBOS, mild tremors, poor walker management, mild unsteadiness no overt LOB. Impaired command following and easily distracted this date. Further ambulation deferred. Stairs x Not attempted. Stand to sit x Good technique and eccentric control. Functional Endurance: Impaired. Patient/Family Education: Roles of PT. Importance of daily mobilization and participation with therapy. Patient sitting in bedside chair after session with call light in reach, chair alarm on, nora cornell present. Pt instructed to call nursing for assist with pt verbalizing understanding. DME: With Patients permission ordered no equipment via [employer] Order. If any questions contact [facility] DME Provider at [phone]. 6 Clicks Basic Mobility PT 11/07/2022 Difficulty turning over in bed 3 Difficulty sitting down and standing up from a chair with arms 3 Difficulty moving from lying on back to sitting on the side of the bed 3 Help from another person moving to and from bed to a chair 3 Help from another person to walk in hospital room 3 Help from another person climbing 3-5 steps with a railing 2 PT 6 Clicks Score 17 6 Click Score Guidelines: 1 - Total = Requires total assistance, or cannot do at all. 2 - A lot = Requires a lot of help (maximun to moderate assistance) Can use assistive devices. 3 - A little = Requires a little help (supervision, minimal assistance) Can use assistive devices. 4 - None = Does not require any help and does the activity independently. Can use assistive devices. ASSESSMENT: Pt continues to be functioning below baseline level and continues to demonstrate impaired strength, cognition, endurance, and overall mobility. Continue to recommend further therapies in a Skilled Setting to maximize functional outcomes when medically clear. Per note pt does not have 24/ assistance. Goals (to be achieved by discharge from acute care): Patient will achieve acceptable level of pain control to allow participation in therapy. Patient will increase bed mobility to independent Patient will perform sit to/from stand transfer bed to/from chair with rolling walker with modified independent Patient will ambulate 50 feet with rolling walker with close supervision Patient will increase ROM/Strength/Endurance/Balance to allow for above goals. Patient/Family independent with exercise program/precautions. PLAN: Will follow established Plan of Care Kaushik Blakely PTA NA = Not Assessed, I = Independent, DC = Modified Independent, Sup = Supervised, Set up = Physical Assistance for Set-up Only, Min = Minimal Assistance, Mod = Moderate Assistance, Max = Maximal assistance; Dep = Dependent; AROM = Active Range of Motion; PROM = Passive Range of Motion; MMT = Manual Muscle Test [facility] 11-07-2022 Note Disruptive Behavior Progress Note Miquel Florentino Small [id number] Type of disruptive behavior: Repeated failure to follow rules/policies, Not following care plan, and Otherwise impeding operations of care provider or medical team Situation: Pt refusing care, up in room with an unsteady gait. Pt as a zapien and IV fluids. Pt dislodged IV and is pulling at zapien. Interventions attempted: Social Work was consulted, Care plan was initiated, Immediate supervisor wet end was notified, Attending physician was notified, and [facility] police were notified Past medical history: Past Medical History: Diagnosis Date BPH (benign prostatic hyperplasia) Essential (primary) hypertension Generalized anxiety disorder Hypertrophic cardiomyopathy (HCC) Mixed hyperlipidemia Parkinson's disease (HCC) Ventricular tachycardia Past social history: Additional current medical or psycho/social history: Recent surgical procedure under anesthesia. Assessment of issues: Pt unable to be redirected. Recommendations/next steps: Continue to keep patient calm and by offering activities to occupied patient. [facility] 11-06-2022 Note OCCUPATIONAL THERAPY INITIAL EVALUATION Patient seen from 1314 to 1344 on 4E unit for 30 minutes. Reason for Admit: Presented from OSH with acutely incarcerated (L) inguinal hernia Procedures this admit: 11/06: L inguinal hernia repair with mesh by Dr. 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 (Re: what he would do in case of fire) Patient Identified Goal(s): return home Home Living Situation-pt is unreliable historian. Prior Functional Status: Pt reports he was ambulatory with use of rollator, completes ADLs independently. Assistance Available at Home: lives alone? Patient lives in a 1 story home 0 stairs to enter. Full Bathroom on 1st level. Bedroom on 1st level. Equipment available at home: rollator OBJECTIVE: Patient Identification: patient verbalizing his/her name and date of . Risks and benefits of occupational therapy: Patient informed of risks and benefits of treatment Appearance: IV Alertness: Awake Affect: flat Cooperation/Behavior: Appropriate dialogue with therapist Communication: WFL Pain: Pain ratin/10, Location: na Pain Relief Interventions Implemented: None required; No pain at this time Self Care: Assistance Level Dep Max Mod Min CG CS DS DC I Set-Up Comment Feeding x Food tray Grooming/Hygiene x Bathing:UB x Anticipated Bathing:LB x Anticipated Dressing:UB x Don gown to backside Dressing: LB x Don pants to hips Toileting x (+) zapien Transfers/Bed Mobility: Assistance Level Dep Max Mod Min CG CS DS DC I Set-Up Comment Toilet Transfers Bed Transfers x Sit to stand, ambulated with RW around room Bed Mobility x Supine to sit EOB Endurance for Self Care: Good Static Sitting Balance: Good Dynamic Sitting Balance: Good UE Motor: BUE is grossly 3+/5 Vision/Perception: WFL Cognition: Orientation: Oriented to person, place and date. Follows Commands: one step commands Attention: WNL Memory: unreliable Problem Solving: impaired-pt states he would get Safety/Judgement: Impaired Sequencing: WFL Other Specialized Tests: None Patient/Family Education: Instructed patient in roles of therapy Patient up in chair with call light in reach. Chair alarm intact and rollbelt. 6 Clicks Daily Activity OT 11/06/2022 Help from another person Eating meals 4 Help from another person taking care of personal grooming 4 Help from another person bathing 3 Help from another person putting on and taking off regular upper body clothing 3 Help from another person putting on and taking off regular lower body clothing 3 Help from another person toileting 3 OT 6 Clicks Score 20 6 Click Score Guidelines: 1 - Unable = Total/Dependent Assist 2 - A lot = Max/Moderate Assist 3 - A little = Minimum/Contact Guard Assist/Supervision 4 - Non = Modified Van Zandt/Independent ASSESSMENT: Uncertain of patients baseline due to confusion, if patient is currently below cognitive and functional baseline, recommend SNF, if patient is close to functional baseline then recommend home with home OT. Will continue to follow. Rehabilitation Potential: Good Problem List: decreased ADLs, impaired upper extremity motor function, decreased endurance, decreased functional transfers/mobility, impaired balance, decreased home management tasks/IADLs, decreased functional activity tolerance, and increased pain Goals (to be achieved by discharge from acute care): Patient will dress upper body with Contact Guard Patient will dress lower body with Close supervision Patient will perform bed mobility with Close supervision Patient will perform bathing with Close supervision Patient will perform toileting with Close supervision Patient will perform bed transfers with Close supervision Patient will perform commode transfers with Close supervision PLAN: Miquel Florentino Juliana will be seen 1-3 times a week. Treatment to include: Functional AROM/Strengthening, functional mobility training, ADL retraining, functional endurance activities, work simplification / energy conservation, community re-entry training, home program instruction, home management retraining, functional task simulation, adaptive equipment / compensatory strategy training, patient / family education and discharge planning, referral to appropriate support services, and pain Management able to discuss th (more content not included)... [facility] 11-06-2022 Note PHYSICAL THERAPY ACU TE EVALUATION Referral received, chart reviewed. Patient seen from 1314 to 1345 on GC4E unit for 31 minutes. Admit date/time: 11/06/2022 1:36 AM Reason for Admit: 86 yo male presents with abdominal pain, transferred from [facility] d/t (L) inguinal hernia incarcerated with concern for strangulation Clinical Dx: inguinal hernia, incarcerated Procedures 11/06/22 Inguinal hernia with mesh repair By Dr. Foster Precautions: full code, high falls, clears Activity: encourage ambulation as tolerated, up in chair in 2-4 hours of surgery Past Medical and Surgical History: PMH: Past Medical History: Diagnosis Date BPH (benign prostatic hyperplasia) Essential (primary) hypertension Generalized anxiety disorder Hypertrophic cardiomyopathy (HCC) Mixed hyperlipidemia Parkinson's disease (HCC) Ventricular tachycardia PSH: Past Surgical History: Procedure Laterality Date AICD INSERTION 2018 APPENDECTOMY REPAIR INGUINAL HERNIA 2012 Identification was verified by patient verbalizing his/her name and date of . and patient's id band and date of . 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 Home: 0 steps to enter? 12 steps to bedroom/bathroom with rails. Assistance available: son and daughter? - unsure of how much assist cane be provided Equipment available: rollator OBJECTIVE: Appearance: Pt supine in bed, pulling on zapien, glasses, hep locked Behavior: pleasantly confused, delayed, (B)UE tremors Oriented x name, hosp, states place as Follows 1 step commands inconsistently and with cues Pain: Site/Location: none; Pain Scale: 0/10 Pain Relief Interventions Implemented: None required; No pain at this time Passive ROM: WFL Strength/Active ROM: (B)LE 3+/5 Mobility: Supine to short sit: contact guard Sitting balance: Fair+ Sit to stand: contact guard Ambulation/Gait: 50ft x2, 2 trials with CGA, slow yariel, decreased step length, difficulty centering in RW and hallway, occasionally unsteady with half of RW off ground Stand to sit: CGA Endurance: Adequate BP 103/67 (BP Location: right arm) Pulse 91 Temp 97.9 ???F (36.6 ???C) (Oral) Resp 16 Wt 209 lb 7 oz (95 kg) SpO2 97% Patient/Family Education: Instructed Patient in roles, goals, treatment plan: demonstrated fair verbal understanding. Patient up in chair with call light in reach. Waist/Torso support and chair alarm intact. DME: With Patients permission ordered no equipment via [employer] Order. If any questions contact [facility] DME Provider at [phone]. 6 Clicks Basic Mobility PT 11/06/2022 Difficulty turning over in bed 3 Difficulty sitting down and standing up from a chair with arms 3 Difficulty moving from lying on back to sitting on the side of the bed 3 Help from another person moving to and from bed to a chair 3 Help from another person to walk in hospital room 3 Help from another person climbing 3-5 steps with a railing 2 PT 6 Clicks Score 17 6 Click Score Guidelines: 1 - Total = Requires total assistance, or cannot do at all. 2 - A lot = Requires a lot of help (maximun to moderate assistance) Can use assistive devices. 3 - A little = Requires a little help (supervision, minimal assistance) Can use assistive devices. 4 - None = Does not require any help and does the activity independently. Can use assistive devices. ASSESSMENT: Miquel Small is a 86 year old yo male presents with abdominal pain, transferred from [facility] d/t (L) inguinal hernia incarcerated with concern for strangulation. Pt would benefit from acute services while in hospital for therex, theractivity, gait training to improve pt ambulation quality/tolerance, transfer skills, and strength to enhance functional mobility and safety. Recommend further therapy services in a Assisted Setting once medically cleared. Or if patient has 24/7 assistance from family and Home PT. Will continue to follow patient while in hospital as appropriate. Problems: Decreased ROM/strength Decreased functional mobility Decreased endurance Decreased balance Decreased education in exercise/precautions Decreased cognition/behavior Impaired safety awareness Rehabilitation Potential: Good Goals (to be achieved by discharge from acute care): Patient will achieve acceptable level of pain control to allow participation in therapy. Patient will increase bed mobility to independent Patient will perform sit to/from stand transfer bed to/from chair with rolling walker with modified independent Patient will ambulate 50 feet with rolling walker with close supervision Patient w (more content not included)... 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 This is the code status chosen by the patient/surrogate. Healthcare Agents on File Name Relationship Healthcare Agent Sonalihi p Communication Grace Meier Health Care Agent Healthcare Agents on File Name Relationship Healthcare Agent Sonalihi p Communication Grace Meier Health Care Agent Summary Purpose Family History No Family History Records FoundNo Family History Records Found Additional Source Comments Care Teams (unrecognized sec tion and content) Silicator Relationship Specialty Start Date End Date La Guardado MD [address] [facility] [address] [place] [address] PCP - General Internal Medicine 11/06/22 (unrecognized sect ion and content) No Status Records FoundNo Status Records Found INFORMATION SOURCE (unrecogn ized section and content) DATE CREATED AUTHOR AUTHOR'S ORGANIZ ATION 01/16/2023 [facility] Source Comments (unrecognize d section and content) In the event this informatio n is protected by the Federal Confidentiality of Alcohol and Drug Abuse Patient Records regulations: The Federal rules restrict any use of the information to criminally investigate or prosecute any alcohol or drug abuse patient.[facility] Reason for Visit (unrecogniz ed section and content) FOR RECORDS PERTAINING TO PATIENTS WHO ARE OR HAVE BEEN ENROLLED IN A CHEMICAL DEPENDENCY/SUBSTANCEABUSE PROGRAM, SOME INFORMATION MAY BE OMITTED. This clinical summary was aggregated from multiple sources. Caution should be exercised in using it in the provision of clinical care. This summary normalizes information from multiple sources, and as a consequence, information in this document may materially change the coding, format and clinical context of patient data. In addition, data may be omitted in some cases. CLINICAL DECISIONS SHOULD BE BASED ON THE PRIMARY CLINICAL RECORDS. [facility] provides no warranty or guarantee of the accuracy or completeness of information in this document.
[2023-11-07 09:20] LABS: Anion Gap 5 (5-15); BUN 20 mg/dL (7-18); BUN/Creat Ratio 22.9 RATIO (10-20); Calcium,Total 9.2 mg/dL (8.5-10.1); Chloride 109 mmol/L (98-107); Creatinine, Serum 0.87 mg/dL (0.70-1.30); EST Glomerular Filtration Rate 88 mL/min (>60); Est Glom Filt Rate - Afr Amer 106 mL/min (>60); Glucose 89 mg/dL (74-106); Potassium 3.9 mmol/L (3.5-5.1); Sodium Level 142 mmol/L (136-145)
== END ==
LOC: OLS.SW 05:00
PROVIDERS: PCP Internal Medicine; Visit Provider Internal Medicine
DX: R53.83 Other fatigue (principal)
CPT/HCPCS: 36415; 80048

== ENCOUNTER → 2024-02-11 | Outpatient (REF) | payer MEDICARE, MEDICAID, SELFPAY ==
[2024-02-11 10:15] LABS: Vitamin D,25 Hydroxy 35.6 ng/mL
== END ==
LOC: OLS.SW 05:00
PROVIDERS: PCP Internal Medicine; Visit Provider Internal Medicine
DX: G20.B2 Parkinson's disease with dyskinesia, with fluctuations (principal)
CPT/HCPCS: 36415; 82306

== ENCOUNTER → 2024-02-27 05:00 | Outpatient (REF) | payer MEDICARE, MEDICAID, SELFPAY ==
[2024-02-27 09:32] LABS: Cholesterol 106 mg/dL (200); High Density Lipoprotein 54 mg/dL; Triglycerides 37 mg/dL; Very Low Density Lipoprotein 7 mg/dL (5-40)
== END ==
LOC: OLS.SW 05:00
PROVIDERS: PCP Internal Medicine; Visit Provider Internal Medicine
DX: E78.5 Hyperlipidemia, unspecified (principal)
CPT/HCPCS: 36415; 80061

== ENCOUNTER → 2024-03-05 05:50 | Outpatient (REF) | payer MEDICARE, MEDICAID, SELFPAY ==
[2024-03-05 15:33] LABS: Cholesterol 119 mg/dL (200); High Density Lipoprotein 58 mg/dL; Triglycerides 47 mg/dL; Very Low Density Lipoprotein 9 mg/dL (5-40)
== END ==
LOC: OLS.SW 05:50
PROVIDERS: PCP Internal Medicine; Visit Provider Internal Medicine
DX: E78.5 Hyperlipidemia, unspecified (principal)
CPT/HCPCS: 36415; 80061

== ENCOUNTER → 2024-05-04 | Outpatient (REF) | payer MEDICARE, MEDICAID, SELFPAY ==
[2024-05-04 09:08] LABS: Absolute Lymphocyte Count 1.09 X10^3/uL (0.83-4.51); Absolute Neutrophil Count 6.2 X10^3/uL (2.0-7.7); Basophil# 0.03 X10^3/uL; Basophil% 0.4 % (0-1); Eosinophil# 0.03 X10^3/uL; Eosinophils% 0.4 % (0-5); Hematocrit 42.4 % (40-54); Hemoglobin 12.9 g/dL (13.0-16.5); Lymphocyte # 1.09 X10^3/ul (0.83-4.51); Mean Corp Hgb Conc 30.4 g/dL (32-36); Mean Corpuscular Hgb 29.3 pg (27.0-32.0); Mean Corpuscular Volume 96.4 fL (80-94); Mean Platelet Vol. 10.1 fl (6.2-12.0); Monocyte# 1.03 X10^3/uL; Monocyte% 12.2 % (0-10); NRBC Flagged by Analyzer 0 % (0-5); Neutrophil # 6.19 X10^3/uL (2.7-7.7); Neutrophil % 73.5 % (47-70); Platelet Count 146 K/mm3 (150-450); RBC Distribution Width CV 16.1 % (11.6-14.6); RBC Distribution Width SD 57.2 fl (35.1-43.9); White Blood Count 8.4 K/mm3 (4.4-11.0)
== END ==
LOC: OLS.SW 05:10
PROVIDERS: PCP Internal Medicine; Visit Provider Internal Medicine
DX: I10 Essential (primary) hypertension (principal); R29.6 Repeated falls; D64.9 Anemia, unspecified; I42.2 Other hypertrophic cardiomyopathy
CPT/HCPCS: 36415; 83880; 85025

== ENCOUNTER → 2024-06-08 | Outpatient (REF) | payer MEDICARE, MEDICAID, SELFPAY ==
[2024-06-08 09:25] LABS: Anion Gap 6 (5-15); BUN 16 mg/dL (7-18); BUN/Creat Ratio 22.7 RATIO (10-20); Calcium,Total 9.2 mg/dL (8.5-10.1); Chloride 108 mmol/L (98-107); EST Glomerular Filtration Rate 112 mL/min (>60); Est Glom Filt Rate - Afr Amer 136 mL/min (>60); Glucose 90 mg/dL (74-106); Potassium 3.7 mmol/L (3.5-5.1); Sodium Level 141 mmol/L (136-145)
== END ==
LOC: OLS.SW 05:00
PROVIDERS: PCP Internal Medicine; Visit Provider Internal Medicine
DX: D64.9 Anemia, unspecified (principal); I10 Essential (primary) hypertension
CPT/HCPCS: 36415; 80048; 83735

== ENCOUNTER 2024-06-09 08:04 | Emergency (ER) | payer MEDICARE, MEDICAID, SELFPAY ==
[2024-06-09 08:06] VITALS: BP 154/75; PULSE 82; RESP 18; TEMP 36.3; O2SAT 95; BMI 23.8
[2024-06-09 08:11] VITALS: O2SAT 97
--- NOTE | 2024-06-09 08:13 | CT_ITS ---
STUDY: CT BRAIN WITHOUT CONTRAST REASON FOR EXAM: Male, 88 years old. trauma/fall. Patient is unresponsive. Hematoma overlying the right temporal region. RADIATION DOSAGE (If Supplied By Facility): CTDIvol = ( 44.99 ) mGy, DLP = ( 880.47 ) mGycm TECHNIQUE: Transaxial CT imaging of the brain was performed without administration of intravenous contrast material. Individualized dose optimization techniques were used for this CT. COMPARISON: No relevant priors. FINDINGS: Scalp hematoma overlying the right frontal bone. Normal calvarium. There is moderate cerebral atrophy with widening of the extra-axial spaces and ventricular dilatation. There are areas of decreased attenuation within the white matter tracts of the supratentorial brain, consistent with microvascular disease changes. Normal basal ganglia and thalami. Normal brainstem. Normal cerebellum. There is evidence of a small acute on chronic right subdural hematoma overlying the right frontal, temporal parietal and occipital lobes. There is a 2 mm [id number] midline shift. Atherosclerotic calcific plaques of the cavernous portions of the internal carotid arteries bilaterally. Normal visualized paranasal sinuses. 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 N.B. : The above Results were Read Back by Nic Watson MD to Shamir Reed MD, and understanding confirmed on 06/09/2024 09:48:47 (ET). Electronically Signed: Nic Watson MD at 9:50 EDT ,
--- NOTE | 2024-06-09 08:17 | ED.VIS.FALL ---
HPI HPI - Fall History of Present Illness Chief Complaint: Fall Informant: patient, family and EMS Narrative Narrative: 88-year-old male DNR comfort care only from [facility] baseline alert and oriented x 1 with severe dementia and parkinsonism, uses walker to get around although the stepson states that he is bad about using it consistently, brought in by EMS after staff found him prone on the floor next to his bed not responding. They called 911, EMS arrived and he is alert and responding and at his baseline. Obvious bruise to the face and his right hand. Patient has no complaints. [facility] Medical History Fracture of left superior pubic ramus Fracture of left inferior pubic ramus Hematochezia Dementia Non-ischemic cardiomyopathy Essential (primary) hypertension Syncope and collapse Hypertrophic cardiomyopathy Ventricular tachycardia Tremor Hyperlipidemia Benign prostate hyperplasia Anxiety Home Medications ?Medication ?Instructions ?Recorded ?Last Taken ?Type finasteride 5 mg tablet 5 mg PO QDAY 02/18/18 02/12/19 History sertraline 100 mg tablet 100 mg PO DAILY 02/12/19 Unknown History Cholecalciferol (Vitamin D3) 5,000 unit PO MO 09/14/20 Unknown History [Vitamin D3] carvedilol 6.25 mg tablet 6.25 mg PO BID #180 tabs 07/04/22 Unknown Rx walker #1 ea 01/23/23 Unknown Rx atorvastatin 20 mg tablet 20 mg PO DAILY 01/31/23 Unknown History carbidopa 25 mg-levodopa 250 mg 1 tab PO TID 01/31/23 Unknown History tablet fludrocortisone 0.1 mg tablet 0.1 mg PO DAILY 01/31/23 Unknown History mirtazapine 15 mg tablet 15 mg PO QHS appetite 01/31/23 Unknown History potassium chloride 10 mEq 10 meq PO DAILY 01/31/23 Unknown History tablet,extended release tamsulosin 0.4 mg capsule 0.4 mg PO DAILY 01/31/23 Unknown History acetaminophen 650 mg tablet 650 mg PO Q4H PRN Pain 02/01/23 Unknown History ferrous sulfate 325 mg (65 mg 325 mg PO DAILY anemia 02/01/23 Unknown History iron) tablet (iron) ciprofloxacin HCl 500 mg tablet 500 mg PO BID 5 days #10 tabs 02/02/23 Unknown Rx lidocaine 5 % topical patch 1 patch topical DAILY 30 days #15 02/02/23 Unknown Rx ea pantoprazole 40 mg tablet,delayed 40 mg PO BID 30 days #60 tabs 02/02/23 Unknown Rx release (Protonix) ropinirole 1 mg tablet 0.5 mg (1/2 x 1 mg) PO TID 30 days 02/02/23 02/12/19 Rx #0 tabs Allergy/AdvReac Type Severity Reaction Status Date / Time Penicillins Allergy PT UNABLE Verified 02/14/23 09:15 TO RESPOND-NEEDS F/U Family History Brother CAD (coronary artery disease) Surgical History History of implantable cardiac defibrillator (ICD) (02/19/19) Hx of hernia repair Hx of appendectomy Social History Smoking Status: Never smoker ROS ROS ED Review of Systems ROS Unobtainable: other Details: Limited due to dementia/confusion other than below Cardiovascular Cardiovascular: Denies chest pain Gastrointestinal Gastrointestinal: Denies abdominal pain Musculoskeletal Musculoskeletal: Denies back pain or neck pain Neurologic Neurologic: Denies headache(s) EXAM Physical Exam Const Vital Signs: 06/09/24 08:06 06/09/24 08:11 06/09/24 10:05 Temperature 97.3 F L Temperature Source Temporal Pulse Rate 82 74 Respiratory Rate 18 20 H Respiratory Effort Normal Non-Labored Respiratory Depth Normal Respiratory Pattern Normal Blood Pressure 154/75 H 141/77 H Blood Pressure Mean 101 98 Pulse Ox 95 97 94 Oxygen Delivery Method Room Air Room Air Room Air 06/09/24 12:00 Temperature Temperature Source Pulse Rate 70 Respiratory Rate 20 H Respiratory Effort Respiratory Depth Respiratory Pattern Blood Pressure 120/68 Blood Pressure Mean 85 Pulse Ox 96 Oxygen Delivery Method Positive well nourished and well developed General Appearance ED: well developed and NAD HEENT Reports moist mucous membranes HEENT Narrative: Contusion right upper lateral face, no sign of proptosis, endophthalmos, globe trauma. No midface instability or significant bony tenderness. normocephalic and atraumatic Eyes PERRL and EOMs intact bilaterally Neck full ROM and supple Chest Wall inspection of chest normal and palpation of chest normal Resp normal respiratory effort and clear to auscultation bilaterally Cardio regular rate and regular rhythm GI non-tender and non-distended Auscultation: normoactive bowel sounds Palpation: soft Back/Spine no CVA tenderness General Back: other FROM Extremity normal to inspection Extremity Narrative: Contusion and abrasion to the dorsum of the right hand, patient does not want to open his fingers but he has some scar tissue on some of them. No laceration. No deformity. Does not seem to have any pain with passively moving all other joints of all 4 extremities. General Extremety ED: Negative for edema, pulses abnormal or tenderness General Extremity: Negative for edema or pulses abnormal Neuro CN's II-XII intact bilaterally, no focal motor deficits and no sensory deficits noted Thor Coma Scale: document GCS findings To Voice Obeys Commands Confused 13 Sensorium / Orientation: awake, alert and oriented to person Skin no rashes or lesions noted and no wounds Skin Narrative: Abrasion/contusion right hand, right face/forehead see above MDM MDM MDM Narrative Medical decision making narrative: We did some basic labs which are noted and fairly unremarkable, as well as a CT of the head and x-rays of the right hand. 3 view x-rays of the right hand mitral rotation showed no acute fracture, radiology in agreement. With regards to the CT of the head, I reviewed the images and report which I agree with, it shows an acute on chronic subdural hematoma on the right. There is 2 mm of shift, looking at the images it appears that this was probably pre-existing with the chronic subdural, as the acute is minimal. I discussed with the radiologist. The patient is at his baseline mental status right now, although a little somnolent and easy to arouse and will talk. Family at the bedside. They agree that if this got worse they would not want neurosurgery or any other emergent procedures/interventions. They are comfortable with him as a DNR comfort care only, going back to [facility] for continued supportive care and comfort measures by the staff there. I discussed with Dr. Schofield who is the physician of record and she is in agreement. I made sure that he was not on any antiplatelet or anticoagulant medications that need discontinued. I given him a dose of Zofran and Tylenol prior to discharge as long as he passes dysphagia screening so that it is safe to do. We attempted to get the patient to stand, but he is unable. Nurses discussed with staff where he is staying, he is actually not in memory unit and is already in [facility] and they are comfortable continuing to care for him despite not being able to stand or walk. Therefore discharge back to SNF. Lab Data Attestation: I reviewed the patient's lab results. Labs: Laboratory Results - last 24 hr 06/09/24 08:28 WBC 12.3 H RBC 4.44 L Hgb 13.3 Hct 41.7 MCV 93.9 MCH 30.0 MCHC 31.9 L RDW Std Deviation 52.6 H RDW Coeff of Josue 15.1 H Plt Count 156 MPV 9.9 Immature Gran % (Auto) 0.500 Neut % (Auto) 80.5 H Lymph % (Auto) 8.5 L Tillman % (Auto) 10.3 H Eos % (Auto) 0.0 Baso % (Auto) 0.2 Absolute Neuts (auto) 9.9 H Absolute Lymphs (auto) 1.04 Nucleated RBC % 0 Sodium 140 Potassium 4.2 Chloride 106 Carbon Dioxide 24.0 Anion Gap 10 BUN 23 H Creatinine 1.00 Estim Creat Clear Calc 56.04 Est GFR (MDRD) Af Amer 91 Est GFR (MDRD) Non-Af 75 BUN/Creatinine Ratio 23.0 H Glucose 124 H Calcium 9.6 Radiography Diagnostic Testing: Clinical Impression(s) from Imaging Studies Brain CT 06/09/24 08:13 IMPRESSION: Acute on chronic right subdural hematoma with [id number] midline shift of 2 mm. N.B. : The above Results were Read Back by Nic Watson MD to Shamir Reed MD, and understanding confirmed on 06/09/2024 09:48:47 (ET). Electronically Signed: Nic Watson MD at 9:50 EDT , ADDENDUM: 06/09/24 0957 IMPRESSION: Acute on chronic right subdural hematoma with [id number] midline shift of 2 mm. N.B. : The above Results were Read Back by Nic Watson MD to Shamir Reed MD, and understanding confirmed on 06/09/2024 09:48:47 (ET). Electronically Signed: Nic Watson MD at 9:50 EDT , Hand X-Ray 06/09/24 09:30 IMPRESSION: No fracture or dislocation is seen. 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 Prescriptions: No Action finasteride 5 mg tablet 5 mg PO QDAY sertraline 100 MG tablet 100 mg PO DAILY Cholecalciferol (Vitamin D3) [Vitamin D3] 5,000 UNIT capsule 5,000 unit PO MO (DME) walker See Rx Instructions .Route .MEDSUPPLY Qty: 1 0RF Rx Instructions: As directed atorvastatin 20 mg tablet 20 mg PO DAILY carbidopa-levodopa 25-250 mg tablet 1 tab PO TID Patient Comments: take 1 tablet by mouth three times a day potassium chloride 10 mEq tablet extended release 10 meq PO DAILY tamsulosin 0.4 mg capsule 0.4 mg PO DAILY mirtazapine 15 mg tablet 15 mg PO QHS fludrocortisone 0.1 mg tablet 0.1 mg PO DAILY acetaminophen 650 mg Tablet 650 mg PO Q4H PRN (Reason: Pain) ferrous sulfate [iron] 325 mg (65 mg iron) Tablet 325 mg PO DAILY ciprofloxacin HCl 500 mg tablet 500 mg PO BID 5 Days Qty: 10 0RF pantoprazole [Protonix] 40 mg tablet,delayed release (DR/EC) 40 mg PO BID 30 Days Qty: 60 0RF lidocaine 5 % Adhesive Patch,Medicated 1 patch topical DAILY 30 Days Qty: 15 0RF Protocol: *Topical Application Instructions APPLICATION INSTRUCTIONS: R sided rib/chest wall ropinirole 1 mg tablet 0.5 mg PO TID 30 Days Qty: 0 0RF Patient Comments: 1 MG, 1/2 Tablet PO TID Rx Instructions: 1 MG, 1/2 Tablet PO TID carvedilol 6.25 mg tablet 6.25 mg PO BID Qty: 180 3RF Primary Care Provider: Claudia Schofield Referrals: Claudia Schofield MD [Primary Care Provider] - Activity Restrictions/Additional Instructions: tylenol as needed for headache/pain. no aspirin/ibuprofen. Print Language: Hong Konger Disposition Disposition: Home, Self Care
[2024-06-09 08:37] LABS: Absolute Lymphocyte Count 1.04 X10^3/uL (0.83-4.51); Absolute Neutrophil Count 9.9 X10^3/uL (2.0-7.7); Basophil# 0.03 X10^3/uL; Basophil% 0.2 % (0-1); Hematocrit 41.7 % (40-54); Hemoglobin 13.3 g/dL (13.0-16.5); Lymphocyte # 1.04 X10^3/ul (0.83-4.51); Lymphocyte % 8.5 % (19-41); Mean Corp Hgb Conc 31.9 g/dL (32-36); Mean Corpuscular Volume 93.9 fL (80-94); Mean Platelet Vol. 9.9 fl (6.2-12.0); Monocyte# 1.27 X10^3/uL; Monocyte% 10.3 % (0-10); NRBC Flagged by Analyzer 0 % (0-5); Neutrophil # 9.89 X10^3/uL (2.7-7.7); Neutrophil % 80.5 % (47-70); Platelet Count 156 K/mm3 (150-450); RBC Distribution Width CV 15.1 % (11.6-14.6); RBC Distribution Width SD 52.6 fl (35.1-43.9); Red Blood Count 4.44 M/mm3 (4.6-6.2); White Blood Count 12.3 K/mm3 (4.4-11.0)
[2024-06-09 09:10] LABS: Anion Gap 10 (5-15); BUN 23 mg/dL (7-18); Calcium,Total 9.6 mg/dL (8.5-10.1); Chloride 106 mmol/L (98-107); EST Glomerular Filtration Rate 75 mL/min (>60); Est Glom Filt Rate - Afr Amer 91 mL/min (>60); Estimated Creatinine Clearance 56.04 ml/min; Glucose 124 mg/dL (74-106); Potassium 4.2 mmol/L (3.5-5.1); Sodium Level 140 mmol/L (136-145)
--- NOTE | 2024-06-09 09:30 | RAD_ITS ---
STUDY: X-RAY - RIGHT HAND REASON FOR EXAM: Male, 88 years old. Pain following a fall. TECHNIQUE: 3 view(s) of the hand. Limited study due to the patient''s condition. COMPARISON: None. FINDINGS: Normal radiocarpal articulation. Normal distal radioulnar joint. Normal visualized carpal bones. Normal carpal articulations Normal carpometacarpal articulation of the thumb. Normal second through fifth carpometacarpal joints. Normal metacarpi. Normal metacarpophalangeal joint of the thumb. Normal interphalangeal joint of the thumb. Normal proximal and distal phalanges of the thumb. Normal metacarpophalangeal joints of the second through fifth fingers. Normal proximal and distal interphalangeal joints of the second through fifth fingers. Normal phalanges of the second through fifth fingers. The soft tissue structures are unremarkable. RAD/Hand 2 Views IMPRESSION: No fracture or dislocation is seen. Electronically Signed: Nic Watson MD at 10:45 EDT ,
[2024-06-09 10:05] VITALS: BP 141/77; PULSE 74; RESP 20; O2SAT 94
[2024-06-09] MEDS: Acetaminophen 500 MG Tablet 1000 MG PO (11:30)
[2024-06-09] MEDS: Ondansetron 4 MG/2 ML Vial IV (11:31)
[2024-06-09 12:00] VITALS: BP 120/68; PULSE 70; RESP 20; O2SAT 96
[2024-06-09 14:00] VITALS: BP 121/62; PULSE 70; RESP 14; O2SAT 93
[2024-06-09 14:24] VITALS: BP 121/62; PULSE 70; RESP 14; TEMP 36.3; O2SAT 93
== END 2024-06-09 14:41 | disposition home or self-care (01) ==
PROVIDERS: Emergency Provider Emergency Medicine; PCP Internal Medicine; Visit Provider Emergency Medicine
DX: S06.5X0A Traumatic subdural hemorrhage without loss of consciousness, initial encounter (principal); G20.C Parkinsonism, unspecified; F03.C0 Unspecified dementia, severe, without behavioral disturbance, psychotic disturbance, mood disturbance, and anxiety; I42.2 Other hypertrophic cardiomyopathy; S60.221A Contusion of right hand, initial encounter; S00.83XA Contusion of other part of head, initial encounter; S60.511A Abrasion of right hand, initial encounter; W19.XXXA Unspecified fall, initial encounter; Y92.122 Bedroom in nursing home as the place of occurrence of the external cause; I10 Essential (primary) hypertension; E78.5 Hyperlipidemia, unspecified; F41.9 Anxiety disorder, unspecified; N40.0 Benign prostatic hyperplasia without lower urinary tract symptoms; Z66 Do not resuscitate; Z88.0 Allergy status to penicillin; Z79.899 Other long term (current) drug therapy; Z95.810 Presence of automatic (implantable) cardiac defibrillator
CPT/HCPCS: 70450; 73120; 73130; 80048; 85025; 93005; 96374; 96376; 99284; A4216; J2405